=== PATIENT | female | born 1960 | race Caucasian/White ===

== ENCOUNTER 2019-05-26 10:00 | Outpatient (RCR) | payer MEDICAID, SELFPAY | END 2019-05-26 13:00 | disposition home or self-care (01) | LOC: PT.CARL 10:00 | PROVIDERS: Visit Provider Nurse Practitioner Family | DX: M54.5 Low back pain (principal) | CPT/HCPCS: 97012; 97014; 97110; 97140; 97163; 97164; G0283 ==

== ENCOUNTER 2019-06-22 11:00 | Outpatient (RCR) | payer MEDICAID, SELFPAY | END 2019-06-29 13:44 | disposition home or self-care (01) | LOC: OT 11:00 | PROVIDERS: Visit Provider Orthopaedic Surgery Adult Reconstructive Orthopaedic Surgery | DX: M65.4 Radial styloid tenosynovitis [de Quervain] (principal) | CPT/HCPCS: 97110; 97165 ==

== ENCOUNTER → 2023-02-20 09:47 | Outpatient (POV) | payer MEDICAID, SELFPAY ==
--- NOTE | 2023-02-20 10:05 | EXP.PAIN.OV ---
HPI Data of Consult Patient: new to practice Consult date: 02/20/23 Requesting Physician: Carmen Sandra APRN Primary Care Provider: John Patino MD Consult Narrative Reason for consult: Neck pain, low back pain History of present illness: Ms. Becerra is a 62 year old female who presents today as a new patient. She is a referral from [facility]. Today she rates her pain a 8 out of 10. She states her pain is in her neck and low back with radiating symptoms into her lower extremities. She does describe this pain as an aching, throbbing sensation that is worse with increased activity. Patient does state this has been going on for years and progressively worsened over time. She does state that her right leg symptoms are worse than the left side. Patient has tried [id number] medications such as Tylenol and ibuprofen along with heat and ice. She does state that heat does seem to do better however it still is temporary. Patient cannot tolerate activities of daily living such as cooking or cleaning and cannot also tolerate prolonged walking or standing due to her pain. She does state that certain motions are aggravating for her pain symptoms such as bending or twisting. She does describe some numbness and tingling into her left lateral foot. Patient states that she has occasionally had of where her legs will give out. Patient denies any history of incontinence. Patient has had physical therapy multiple times with her last sessions a few months ago however this made her pain significantly worse. She does use Tylenol and Voltaren gel on a daily basis however she states she only gets minimal improvement. 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 Patient is not on any scheduled medications. Patient does have a cardiac history including coronary artery disease. Patient is a diabetic and currently managed with metformin. Her Joaquim is [id number]. Its been reviewed and appropriate. CC: Carmen Sandra APRN [facility] Disclaimer: The information contained in this section may have been updated after the patient was seen, as this information can be updated by other users. Medical History (Updated 02/20/23 @ 10:27 by Carmen Sandra APRN) DDD (degenerative disc disease) Diabetes GERD (gastroesophageal reflux disease) HLD (hyperlipidemia) HTN (hypertension) Seasonal allergies Social History Smoking Status: Never smoker alcohol intake: never current occupational status: other Travel in the last 8 weeks: None Review of Systems Review of Systems Review of systems:: pertinent systems reviewed and negative unless documented below Review of systems (narrative): Review of Systems: General: No recent weight changes, no fever, no sleep disturbances Respiratory: No cough, no shortness of air, no recurring pulmonary infections Cardiovascular/peripheral vascular: No chest pain, no palpitations, no edema, no shortness of breath Gastrointestinal: No new onset incontinence, normal bowel movements reported Genitourinary: No new onset incontinence Musculoskeletal: Neck pain, low back pain, bilateral lower extremity pain Psychiatric: [Normal mood/affect] Neurological: [Denies weakness in extremities], [denies balance issues] Meds Home Medications and Allergies Home Medications Medication Instructions Recorded Confirmed Type albuterol sulfate 90 mcg/actuation 2 puff inhalation BIDP PRN sob 02/20/23 02/20/23 History aerosol inhaler (Ventolin HFA) aspirin 81 mg tablet,delayed 81 mg PO DAILY heart health 02/20/23 02/20/23 History release atorvastatin 20 mg tablet 20 mg PO HS Cholesterol 02/20/23 02/20/23 History cholecalciferol (vitamin D3) 50 2,000 unit PO DAILY Supplement 02/20/23 02/20/23 History mcg (2,000 unit) tablet colestipol 1 gram tablet 1 g PO DAILY . 02/20/23
[2023-02-20 10:06] VITALS: BP 128/76; PULSE 60; RESP 20; O2SAT 97; BMI 33.2
== END ==
PROVIDERS: PCP Emergency Medicine; Visit Provider Nurse Practitioner Family
DX: M51.16 Intervertebral disc disorders with radiculopathy, lumbar region (principal); M46.1 Sacroiliitis, not elsewhere classified
CPT/HCPCS: 99202; G0463

== ENCOUNTER 2023-03-03 08:00 | Day surgery (SDC) | payer MEDICAID, SELFPAY ==
[2023-03-03 08:25] VITALS: BP 154/91; PULSE 75; RESP 18; TEMP 36.3; O2SAT 100; BMI 33.2
[2023-03-03 09:07] VITALS: BP 171/78; PULSE 72; RESP 18; O2SAT 98
[2023-03-03 09:08] VITALS: BP 171/78; PULSE 72; RESP 18; O2SAT 98
[2023-03-03 09:12] VITALS: BP 152/75; PULSE 74; RESP 18; O2SAT 100
--- NOTE | 2023-03-03 09:20 | EXP.PAIN.PRO ---
Procedure Date: 03/03/23 Time: 09:15 Anesthesiologist:: Miguel Neal CRNA Complications:: None Pre-procedure Diagnosis:: Degenerative disc lumbar spine multilevels. Lumbar radiculopathy. Post-procedure Diagnosis:: Same. Indications for Procedure:: Pleasant 62-year-old female that comes our clinic today for a lumbar epidural steroid injection at the L4-5 level. Patient complains of low back pain as well as bilateral hip and leg radicular symptoms. She rates her pain 7/10. Procedure Details:: Procedure: Lumbar epidural steroid injection under fluoroscopy Informed consent was obtained and the risks and benefits of the procedure were explained to the patient. The patient was taken to the procedure room and noninvasive monitors placed, including noninvasive blood pressure cuff and pulse oximeter. The back was viewed using C-arm Fluoroscopy and prepped using Chloraprep as a cleansing solution and the L4-L5 interspace was palpated. Skin and subcutaneous tissues were anesthetized using lidocaine 1.5% and a 25-gauge needle. After this, an 18-gauge Touhy epidural needle was placed into the L4-L5 interspace and advanced using fluoroscopic guidance and loss of resistance to air until the epidural space was encountered. After confirmation of needle placement in the epidural space, with dye, a solution containing normal saline, 3 mL and Depo-Medrol 80 mg were incrementally injected into the lumbar epidural space. The patient tolerated the procedure well with no complications. The patient was observed in the Pain Clinic and then discharged home neurologically intact. Plan and Disposition:: Patient was discharged without incident.
== END 2023-03-03 09:12 | disposition home or self-care (01) ==
PROVIDERS: PCP Emergency Medicine; Visit Provider Nurse Anesthetist, Certified Registered
DX: M51.16 Intervertebral disc disorders with radiculopathy, lumbar region (principal)
CPT/HCPCS: 62323; J1040

== ENCOUNTER → 2023-03-25 09:05 | Outpatient (POV) | payer MEDICAID, SELFPAY ==
[2023-03-25 09:20] VITALS: BP 154/86; PULSE 80; RESP 18; O2SAT 97; BMI 33.2
--- NOTE | 2023-03-25 09:45 | EXP.PAIN.SOA ---
[facility] Pain Management SOAP Note Subjective:: Patient is a pleasant 62-year-old female who presents today for follow-up of lumbar epidural steroid injection at L4-L5 on 03/03/2023. We are currently treating the patient for degenerative disc disease of lumbar spine with lumbar radiculopathy symptoms, low back pain, neck pain. Today she states that she has had at least 50% improvement following this injection. She rates her pain a 5 out of 10 and denies any new trauma or injury. She states following this injection she was able to increase her activity with decreased pain symptoms. She does state that part of her pain today is related to a flareup of her gastroparesis. She also states that she keeps her grandchild daily and often picks her up and carries her and she is approximately 30 pounds. She states that by the end of the day she will be more sore at night. At our last visit she was prescribed tizanidine 4 mg at bedtime and she states this does help giving her additionally 2 hours of sleep with some improvement. Patient was also prescribed compounding cream that she states she is almost out and requesting a refill. Her Joaquim is [phone]. Its been reviewed and appropriate. Review of Systems: General: No recent weight changes, no fever, no sleep disturbances Respiratory: No cough, no shortness of air, no recurring pulmonary infections Cardiovascular/peripheral vascular: No chest pain, no palpitations, no edema, no shortness of breath Gastrointestinal: No new onset incontinence, normal bowel movements reported Genitourinary: No new onset incontinence Musculoskeletal: Low back pain Psychiatric: [Normal mood/affect] Neurological: [Denies weakness in extremities], [denies balance issues] Objective:: Physical Exam: General: Alert and oriented x3, no acute distress, pleasant and cooperative Lungs: Respirations even and unlabored, symmetrical chest expansion Eyes: PERRL Musculoskeletal: Flexion and extension of lumbar [spine] somewhat guarded secondary to pain, [antalgic gait noted] Neurological: Speech clear, no gross sensory deficit Assessment:: Degenerative disc disease of lumbar spine with lumbar radiculopathy symptoms, low back pain, neck pain Plan:: Patient has had at least 50% improvement following her lumbar epidural steroid injection and does not require any additional injective therapy at this time. We will refill her compounding cream and send in a new prescription of methocarbamol 750 mg twice daily and provide a 1 month supply of this medication. I have counseled the patient to discontinue the tizanidine while taking the methocarbamol. Patient will return to clinic in 1 month for reevaluation of symptoms, medication refill if indicated and plan of care. Patient has been instructed to contact the clinic with any concerns before the next appointment. Dr. Killian has reviewed this note and agrees with this plan of care. This note was dictated using voice recognition software and make contain errors or omissions. [facility] Disclaimer: The information contained in this section may have been updated after the patient was seen, as this information can be updated by other users. Medical History DDD (degenerative disc disease) Diabetes GERD (gastroesophageal reflux disease) HLD (hyperlipidemia) HTN (hypertension) Seasonal allergies Family History (Updated 03/03/23 @ 08:25 by Enriqueta Carreon RN) Other No significant family history Social History Smoking Status: Never smoker alcohol intake: never current occupational status: other Travel in the last 8 weeks: None
== END | disposition home or self-care (01) ==
PROVIDERS: PCP Emergency Medicine; Visit Provider Nurse Practitioner Family
DX: M51.16 Intervertebral disc disorders with radiculopathy, lumbar region (principal)
CPT/HCPCS: 99212; G0463

== ENCOUNTER → 2023-04-23 09:43 | Outpatient (POV) | payer MEDICAID, SELFPAY ==
--- NOTE | 2023-04-23 10:06 | EXP.PAIN.SOA ---
[facility] Pain Management SOAP Note Subjective:: Patient is a pleasant 62-year-old female who presents today for follow-up. We are currently treating the patient for degenerative disc disease of lumbar spine with lumbar radiculopathy symptoms, low back pain, neck pain. Today she rates her pain a 7 out of 10. Patient states she is experiencing more pain in her low back with radiating symptoms into her lower extremities. Patient denies any new injury or trauma. She did previously have a lumbar epidural of L4-L5 at the middle of February that did provide 50% improvement lasting up until this point. Patient is interested in repeating this injection. She does state her pain is an aching, throbbing sensation that is worse with increased activity. It does interfere with her ability perform activities of daily living such as cooking and cleaning. At her last visit we did also try a new muscle relaxer of methocarbamol 750 mg twice a day however she stated that she tried it on 2 different occasions and it caused her to be nauseated and some vomiting issues. Patient states she discontinued this medication. Previously she was on tizanidine at bedtime however she was not getting significant relief with this medication either. Patient is prescribed compounding cream. Her Joaquim is [phone]. Its been reviewed and appropriate. Review of Systems: General: No recent weight changes, no fever, no sleep disturbances Respiratory: No cough, no shortness of air, no recurring pulmonary infections Cardiovascular/peripheral vascular: No chest pain, no palpitations, no edema, no shortness of breath Gastrointestinal: No new onset incontinence, normal bowel movements reported Genitourinary: No new onset incontinence Musculoskeletal: Low back pain, bilateral leg pain Psychiatric: [Normal mood/affect] Neurological: [Denies weakness in extremities], [denies balance issues] Objective:: Physical Exam: General: Alert and oriented x3, no acute distress, pleasant and cooperative Lungs: Respirations even and unlabored, symmetrical chest expansion Eyes: PERRL Musculoskeletal: Flexion and extension of lumbar [spine] somewhat guarded secondary to pain, [antalgic gait noted] Neurological: Speech clear, no gross sensory deficit Assessment:: Degenerative disc disease of lumbar spine with lumbar radiculopathy symptoms, low back pain, neck pain Plan:: Patient is experiencing significant pain in her low back with radiating symptoms into her lower extremities. I have discussed with the patient that she may benefit from repeat lumbar epidural steroid injection. Risk and benefits were discussed with the patient and she would like to proceed forward with this plan of care. Patient is not on any blood thinners. Patient did previously have at least 50% improvement with her last epidural injection lasting approximately a month and a half. We will also order the patient baclofen 10 mg at bedtime and provide a 2-week supply of this medication. Patient will be scheduled for an LESI L4-L5. Patient has been instructed to contact the clinic with any concerns before the next appointment. Dr. Killian has reviewed this note and agrees with this plan of care. This note was dictated using voice recognition software and make contain errors or omissions. [facility] Disclaimer: The information contained in this section may have been updated after the patient was seen, as this information can be updated by other users. Medical History DDD (degenerative disc disease) Diabetes GERD (gastroesophageal reflux disease) HLD (hyperlipidemia) HTN (hypertension) Seasonal allergies Family History (Updated 03/03/23 @ 08:25 by Enriqueta Carreon RN) Other No significant family history Social History Smoking Status: Never smoker alcohol intake: never current occupational status: other Travel in the
[2023-04-23 11:05] VITALS: BP 152/79; PULSE 69; RESP 20; O2SAT 98; BMI 33.2
== END | disposition home or self-care (01) ==
PROVIDERS: PCP Emergency Medicine; Visit Provider Nurse Practitioner Family
DX: M51.16 Intervertebral disc disorders with radiculopathy, lumbar region (principal); M54.2 Cervicalgia
CPT/HCPCS: 99212; G0463

== ENCOUNTER 2023-05-05 12:08 | Day surgery (SDC) | payer MEDICAID, SELFPAY ==
[2023-05-05 12:48] VITALS: BP 141/85; PULSE 82; RESP 18; TEMP 36.1; O2SAT 98; BMI 33.6
[2023-05-05 12:53] VITALS: BP 142/66; PULSE 76; RESP 18; O2SAT 97
--- NOTE | 2023-05-05 12:57 | P.PCN_ITS ---
Procedure Date: 05/05/23 Time: 12:50 Anesthesiologist:: Miguel Neal CRNA Complications:: None Pre-procedure Diagnosis:: Degenerative disc disease lumbar spine multilevels. Lumbar radiculopathy Post-procedure Diagnosis:: Same. Indications for Procedure:: Patient is a very pleasant 62-year-old female that comes our clinic today for lumbar epidural steroid injection at the L4-5 level. Patient describes low back pain as constant, dull, aching. Patient also complains of bilateral hip and leg radicular symptoms at times. Patient rates her pain 7/10. Procedure Details:: Procedure: Lumbar epidural steroid injection under fluoroscopy Informed consent was obtained and the risks and benefits of the procedure were explained to the patient. The patient was taken to the procedure room and noninvasive monitors placed, including noninvasive blood pressure cuff and pulse oximeter. The back was viewed using C-arm Fluoroscopy and prepped using Chloraprep as a cleansing solution and the L4-L5 interspace was palpated. Skin and subcutaneous tissues were anesthetized using lidocaine 1.5% and a 25-gauge needle. After this, an 18-gauge Touhy epidural needle was placed into the L4-L5 interspace and advanced using fluoroscopic guidance and loss of resistance to air until the epidural space was encountered. After confirmation of needle placement in the epidural space, with dye, a solution containing normal saline, 3 mL and Depo-Medrol 80 mg were incrementally injected into the lumbar epidural space. The patient tolerated the procedure well with no complications. The patient was observed in the Pain Clinic and then discharged home neuro logically intact. Plan and Disposition:: Patient was discharged without incident.
[2023-05-05 13:06] VITALS: BP 108/67; PULSE 75; RESP 18; O2SAT 98
== END 2023-05-05 13:06 | disposition home or self-care (01) ==
PROVIDERS: PCP Emergency Medicine; Visit Provider Nurse Anesthetist, Certified Registered
DX: M51.16 Intervertebral disc disorders with radiculopathy, lumbar region (principal)
CPT/HCPCS: 62323; J1040

== ENCOUNTER → 2023-05-18 14:02 | Outpatient (POV) | payer MEDICAID, SELFPAY ==
[2023-05-18 15:13] VITALS: BP 140/80; PULSE 75; RESP 18; O2SAT 97; BMI 32.8
--- NOTE | 2023-05-18 15:27 | EXP.PAIN.SOA ---
[facility] Pain Management SOAP Note Subjective:: Patient is a pleasant 62-year-old female who presents today for follow-up of lumbar epidural steroid injection of L4-L5 on 05/05/2023. We are currently treating the patient for degenerative disc disease of lumbar spine with lumbar radiculopathy symptoms, low back pain, neck pain. Today she rates her pain a 5 out of 10. Patient denies any new trauma or injury. Patient denies any change location or type of pain she experiences. She does state that she has had at least 80% improvement following this injection and feels like it is still providing good relief along the left side of her low back. She does state today her pain is more related to her right hip. Patient does describe this as an aching, throbbing sensation that is worse with increased activity. Patient does state that standing or prolonged positioning seems to worsen and that she frequently has to shift her weight or move around to get relief. Patient does state the pain interferes with her ability to perform activities of daily living. Patient is currently managed with baclofen 10 mg at bedtime that she was given a 2-week supply of this medication. She does state that it did help and is requesting an increase if possible. Patient was previously tried on methocarbamol however it caused GI upset and in the past has been on tizanidine however it made no additional relief. Patient is managed with compounding cream. Patient denies any heart or kidney issues. Her Joaquim is [phone]. Its been reviewed and appropriate. Review of Systems: General: No recent weight changes, no fever, no sleep disturbances Respiratory: No cough, no shortness of air, no recurring pulmonary infections Cardiovascular/peripheral vascular: No chest pain, no palpitations, no edema, no shortness of breath Gastrointestinal: No new onset incontinence, normal bowel movements reported Genitourinary: No new onset incontinence Musculoskeletal: Right-sided low back pain, right hip pain Psychiatric: [Normal mood/affect] Neurological: [Denies weakness in extremities], [denies balance issues] Objective:: Physical Exam: General: Alert and oriented x3, no acute distress, pleasant and cooperative Lungs: Respirations even and unlabored, symmetrical chest expansion Eyes: PERRL Musculoskeletal: Flexion and extension of lumbar [spine] somewhat guarded secondary to pain, [antalgic gait noted] extreme point tenderness along right SI with positive right Clovis's, Gretel's, Gaenslen's, compression and distraction exam Neurological: Speech clear, no gross sensory deficit Assessment:: Degenerative disc disease of lumbar spine with lumbar radiculopathy symptoms, low back pain, neck pain, sacroiliitis Plan:: Patient is experiencing significant pain along her low back and right hip. Patient had limited range of motion of her lumbar spine along with extreme point tenderness along her right SI with a positive right Clovis's, Gretel's, Gaenslen's, compression and distraction exam. I have discussed with the patient that she may benefit from a diagnostic SI injection. Risk and benefits were discussed with patient and she would like to proceed forward with this plan of care. I will also send in a prescription of meloxicam 7.5 mg daily and provide a 2-week supply of this medication along with increase her baclofen to 20 mg at bedtime and provide a 1 month supply of this medication. Patient will be scheduled for a diagnostic right SI injection. Patient has been instructed to contact the clinic with any concerns before the next appointment. Dr. Killian has reviewed this note and agrees with this plan of care. This note was dictated using voice recognition software and make contain errors or omissions. [facility] Disclaimer: The information contained in this section may have been updated after the patient was seen, as this information can be updated by other users. Medical History (Reviewed 05/05/23 @ 12:56 by Enriqueta
== END | disposition home or self-care (01) ==
PROVIDERS: Visit Provider Nurse Practitioner Family
DX: M51.16 Intervertebral disc disorders with radiculopathy, lumbar region (principal); M54.50 Low back pain, unspecified; M54.2 Cervicalgia; M46.1 Sacroiliitis, not elsewhere classified
CPT/HCPCS: 99212; G0463

== ENCOUNTER 2023-06-02 07:40 | Day surgery (SDC) | payer MEDICAID, SELFPAY ==
[2023-06-02 08:21] VITALS: BP 135/77; PULSE 75; RESP 18; TEMP 36.6; O2SAT 99; BMI 32.8
[2023-06-02 08:34] VITALS: BP 147/80; PULSE 77; RESP 18; O2SAT 99
--- NOTE | 2023-06-02 08:34 | EXP.PAIN.PRO ---
Procedure Date: 06/02/23 Time: 08:20 Anesthesiologist:: Miguel Neal CRNA Complications:: None Pre-procedure Diagnosis:: Right sacroiliitis Post-procedure Diagnosis:: Right sacroiliitis. Indications for Procedure:: Very pleasant 62-year-old female comes our clinic today for right sacroiliac joint injection. She has had this in the past on the left side with significant improvement terms of her overall left posterior hip pain. She rates her pain 7/10. Procedure Details:: Procedure: Right sacroliliac joint injection under fluoroscopy Informed consent was obtained and the risk and benefits of the procedure were explained to the patient.~ The patient was taken to the procedure room and noninvasive monitors were placed including noninvasive blood pressure cuff and pulse oximeter.~ The patient was placed prone on the procedure table.~ The~ right hip was cleansed using Betadine as a cleansing solution.~ C-arm fluorosocpy was used to view the right SI joint.~ The skin and subcutaneous tissues were anesthetized using Lidocaine 1.5% and a 25-gauge needle.~ After this, a 22-gauge spinal needle was inserted under fluoroscopic guidance into the inferior aspect of the right SI joint.~ Omnipaque dye was injected and a good spread was seen throughout the joint.~ After this, approximately 5 mL of bupivacaine 0.25% and Depo-Medrol 40 mg was incrementally injected into the sacroiliac joint.~ The patient tolerated the procedure well with no complications.~ The patient was observed in the Pain Clinic, then discharged home neurologically intact.~ Plan and Disposition:: Patient was discharged without incident.
== END 2023-06-02 08:34 | disposition home or self-care (01) ==
PROVIDERS: PCP Emergency Medicine; Visit Provider Nurse Anesthetist, Certified Registered
DX: M46.1 Sacroiliitis, not elsewhere classified (principal)
CPT/HCPCS: 27096; G0260; J1040

== ENCOUNTER → 2023-06-15 09:04 | Outpatient (POV) | payer MEDICAID, SELFPAY ==
[2023-06-15 09:27] VITALS: BP 165/90; PULSE 72; RESP 18; O2SAT 98; BMI 33.0
--- NOTE | 2023-06-15 10:02 | EXP.PAIN.SOA ---
[facility] Pain Management SOAP Note Subjective:: Patient is a pleasant 62-year-old female who presents today for follow-up of right SI injection on 06/02/2023. We are currently treating the patient for degenerative disc disease of lumbar spine with lumbar radiculopathy symptoms, low back pain, neck pain, sacroiliitis. Today she rates her pain a 8 out of 10. Patient denies any new trauma or injury. She does state today that she is experiencing more pain along her low back that radiates into both her hips. Patient does describe this as an aching, throbbing sensation with numbness and tingling. Patient does state that her last injection seem more like it did not provide significant relief. She feels like it may have just been a fluke. Patient has had previous SI injections that provided 80% relief for several months. Patient does state her pain interferes with her ability perform activities of daily living such as cooking and cleaning. She is currently managed with baclofen 20 mg at bedtime and meloxicam 7.5 mg daily. Patient denies any side effects from this medication. She does state that the compounding cream she continues to use and it does provide additional improvement. Her Joaquim is [id number]. Its been reviewed and appropriate. Review of Systems: General: No recent weight changes, no fever, no sleep disturbances Respiratory: No cough, no shortness of air, no recurring pulmonary infections Cardiovascular/peripheral vascular: No chest pain, no palpitations, no edema, no shortness of breath Gastrointestinal: No new onset incontinence, normal bowel movements reported Genitourinary: No new onset incontinence Musculoskeletal: Low back pain, bilateral hip pain Psychiatric: [Normal mood/affect] Neurological: [Denies weakness in extremities], [denies balance issues] Objective:: Physical Exam: General: Alert and oriented x3, no acute distress, pleasant and cooperative Lungs: Respirations even and unlabored, symmetrical chest expansion Eyes: PERRL Musculoskeletal: Flexion and extension of lumbar [spine] somewhat guarded secondary to pain, [antalgic gait noted] extreme point tenderness along right SI with positive left SI point tenderness, bilateral positive Clovis's, Gretel's, Gaenslen's, compression and distraction exam, point tenderness along bilateral greater trochanteric bursa's Neurological: Speech clear, no gross sensory deficit Assessment:: Degenerative disc disease with lumbar radiculopathy symptoms, low back pain, neck pain, sacroiliitis, greater trochanteric bursitis Plan:: Patient continues to experience significant pain in her low back and bilateral hips. Patient did have extreme point tenderness along her right SI and point tenderness at her left SI with positive bilateral Clovis's, Gretel's, Gaenslen's, compression and distraction exam. She also had point tenderness along her bilateral greater trochanteric bursa's. I have discussed with the patient that she may benefit from bilateral SI injections. Risk and benefits were explained to the patient and she would like to proceed forward with this plan of care. Patient has previously had SI injections that provided 80% relief lasting several months. I have also discussed with the patient in future she may also benefit from bilateral bursa injections. We will discuss this at future visits. I will send in refills on her baclofen 20 mg at bedtime and meloxicam 7.5 mg daily and provide a 1 month supply of this medication. Patient will be scheduled for bilateral SI injections. Patient has been instructed to contact the clinic with any concerns before the next appointment. Dr. Killian has reviewed this note and agrees with this plan of care. This note was dictated using voice recognition software and make contain errors or omissions. [facility] Disclaimer: The information contained in this section may have been updated after the patient was seen, as this information can be updated by other users. Medical Hist
== END | disposition home or self-care (01) ==
PROVIDERS: Visit Provider Nurse Practitioner Family
DX: M51.16 Intervertebral disc disorders with radiculopathy, lumbar region (principal); M54.2 Cervicalgia; M46.1 Sacroiliitis, not elsewhere classified; M70.60 Trochanteric bursitis, unspecified hip
CPT/HCPCS: 99212; G0463

== ENCOUNTER 2023-06-23 08:42 | Day surgery (SDC) | payer MEDICAID, SELFPAY ==
[2023-06-23 08:58] VITALS: BP 129/88; BP 141/78; PULSE 71; PULSE 74; PULSE 81; RESP 18; TEMP 36.3; O2SAT 95; O2SAT 97; BMI 33.0
[2023-06-23 09:10] VITALS: BP 136/80; PULSE 71; RESP 20
--- NOTE | 2023-06-23 09:42 | P.PCN_ITS ---
Procedure Date: 06/23/23 Time: 09:15 Anesthesiologist:: Miguel Neal CRNA Complications:: None Pre-procedure Diagnosis:: Bilateral sacroiliitis Post-procedure Diagnosis:: Same. Indications for Procedure:: Patient is a very pleasant 62-year-old female comes our clinic today for bilateral sacroiliac joint injections. Upon examination she has extreme point tenderness over the bilateral sacroiliac joints. She complains of difficulty transitioning from sitting to standing. Difficulty ambulating secondary to increased pain in the posterior hip area bilaterally. She rates her pain 7/10. Procedure Details:: Procedure: Bilateral sacroiliac joint injections under fluoroscopy Informed consent was obtained and the risks and benefits of the procedure were explained to the patient.~ The patient was taken to the procedure room and noninvasive monitors were placed including a noninvasive blood pressure cuff and pulse oximeter.~ The patient was placed prone on the procedure table. Both hips were cleansed using Betadine as a cleansing solution. C-arm fluoroscopy was used to view the right sacroiliac joint.~ The skin and subcutaneous tissues were anesthetized using lidocaine 1.5% and a 25-gauge needle.~ After this, a 22-gauge spinal needle was inserted under fluoroscopic guidance into the inferior aspect of the right sacroiliac joint.~ Omnipaque dye was injected and good spread was seen throughout the joint.~ After this, approximately 5 mL of bupivacaine, 0.25% and Depo-Medrol, 40 mg was incrementally injected into the right sacroiliac joint. We then moved to the left sacroiliac joint.~ The skin and subcutaneous tissues were anesthetized using lidocaine 1.5% and a 25-gauge needle.~ After this, a 22- gauge spinal needle was inserted under fluoroscopic guidance into the inferior aspect of the left sacroiliac joint.~ Omnipaque dye was injected and good spread was seen throughout the joint. After this, approximately 5 mL of bupivacaine, 0.25% and Depo-Medrol, 40 mg was incrementally injected into the left sacroiliac joint.~ The patient tolerated the procedure well with no complications. The patient was observed in the Pain Clinic and then was discharged home neurologically intact. Plan and Disposition:: Patient was discharged without incident.
== END 2023-06-23 09:10 | disposition home or self-care (01) ==
LOC: SC.PAINP 08:43
PROVIDERS: PCP Emergency Medicine; Visit Provider Nurse Anesthetist, Certified Registered
DX: M46.1 Sacroiliitis, not elsewhere classified (principal)
CPT/HCPCS: 27096; G0260; J1040

== ENCOUNTER → 2023-07-08 13:51 | Outpatient (POV) | payer MEDICAID, SELFPAY ==
--- NOTE | 2023-07-08 14:16 | EXP.PAIN.SOA ---
[facility] Pain Management SOAP Note Subjective:: Patient is a pleasant 62-year-old female who presents today for follow-up of bilateral SI injections on 06/23/2023. We are currently treating the patient for degenerative disc disease of lumbar spine with lumbar radiculopathy symptoms, low back pain, neck pain, sacroiliitis. Today she rates her pain a 10 out of 10. Patient states that she did have significant improvement following her SI injections and that she is no longer having pain at that location. She does state that she is experiencing severe leg pain and describes it as a sharp stabbing sensation that is worse with increased activity or does seem to be at night. Patient was prescribed ropinirole however she states she was having worsening GI symptoms and did have a couple of nosebleeds. Patient does state the pain in her legs is unbearable and does limit her ability perform activities of daily living. Patient is currently prescribed baclofen 20 mg at bedtime and meloxicam 7.5 milligrams daily. Patient denies any side effects from these medications. She does state that she only needs the baclofen refilled. She does also use a compounding cream. Her Joaquim is [id number]. Its been reviewed and appropriate. Review of Systems: General: No recent weight changes, no fever, no sleep disturbances Respiratory: No cough, no shortness of air, no recurring pulmonary infections Cardiovascular/peripheral vascular: No chest pain, no palpitations, no edema, no shortness of breath Gastrointestinal: No new onset incontinence, normal bowel movements reported Genitourinary: No new onset incontinence Musculoskeletal: No back pain, bilateral leg pain Psychiatric: [Normal mood/affect] Neurological: [Denies weakness in extremities], [denies balance issues] Objective:: Physical Exam: General: Alert and oriented x3, no acute distress, pleasant and cooperative Lungs: Respirations even and unlabored, symmetrical chest expansion Eyes: PERRL Musculoskeletal: Flexion and extension of lumbar [spine] somewhat guarded secondary to pain, [antalgic gait noted] Neurological: Speech clear, no gross sensory deficit Assessment:: Degenerative disc disease of lumbar spine with lumbar radiculopathy symptoms, sacroiliitis, neck pain, low back pain Plan:: Patient is experiencing worsening pain in her low back with radiating symptoms into her lower extremities. Patient did have limited range of motion of her lumbar spine during today's visit. I have discussed with the patient that she may benefit from lumbar epidural steroid injection. Risk and benefits were explained to the patient and she would like to proceed forward with this plan of care. Patient is not on any blood thinners. I will send in a refill of her baclofen 20 mg at bedtime and provide a 1 month supply of this medication. Patient will be scheduled for an LESI L4-L5. Patient has been instructed to contact the clinic with any concerns before the next appointment. Dr. Killian has reviewed this note and agrees with this plan of care. This note was dictated using voice recognition software and make contain errors or omissions. [facility] Disclaimer: The information contained in this section may have been updated after the patient was seen, as this information can be updated by other users. Medical History DDD (degenerative disc disease) Diabetes GERD (gastroesophageal reflux disease) HLD (hyperlipidemia) HTN (hypertension) Seasonal allergies Family History Other No significant family history Social History Smoking Status: Never smoker alcohol intake: never current occupational status: retired Travel in the last 8 weeks: None
[2023-07-08 14:27] VITALS: BP 143/85; PULSE 74; RESP 18; O2SAT 97; BMI 32.8
== END | disposition home or self-care (01) ==
PROVIDERS: PCP Emergency Medicine; Visit Provider Nurse Practitioner Family
DX: M51.16 Intervertebral disc disorders with radiculopathy, lumbar region (principal); M54.2 Cervicalgia; M46.1 Sacroiliitis, not elsewhere classified
CPT/HCPCS: 99212; G0463

== ENCOUNTER → 2023-08-06 08:57 | Outpatient (POV) | payer MEDICAID, SELFPAY ==
--- NOTE | 2023-08-06 09:22 | EXP.PAIN.SOA ---
[facility] Pain Management SOAP Note Subjective:: Patient is a pleasant 62-year-old female who presents today for injection denial. We are currently treating the patient for degenerative disc disease of lumbar spine with lumbar radiculopathy symptoms, low back pain, neck pain, sacroiliitis. Today she rates her pain a 7 out of 10. Patient denies any new trauma or injury. She does state that her back is bothering her more so today and describes this as an aching sensation that is worse with increased activity. Since our last visit she states that her leg pain continued to be unbearable and did seem worse at night and that she went to her primary care doctor and they recommended stopping any new or medications. She states that she did stop the baclofen at bedtime and meloxicam daily and about 3 days from that time her leg pain completely resolved. Patient does use a compounded cream. She is asking if there is anything else we can do instead of the medications that she stopped to help with pain. Patient does have a history of gastroparesis and states sometimes her body can be sensitive to certain medications. Her Joaquim is [id number]. Its been reviewed and appropriate. Review of Systems: General: No recent weight changes, no fever, no sleep disturbances Respiratory: No cough, no shortness of air, no recurring pulmonary infections Cardiovascular/peripheral vascular: No chest pain, no palpitations, no edema, no shortness of breath Gastrointestinal: No new onset incontinence, normal bowel movements reported Genitourinary: No new onset incontinence Musculoskeletal: Low back pain Psychiatric: [Normal mood/affect] Neurological: [Denies weakness in extremities], [denies balance issues] Objective:: Physical Exam: General: Alert and oriented x3, no acute distress, pleasant and cooperative Lungs: Respirations even and unlabored, symmetrical chest expansion Eyes: PERRL Musculoskeletal: Flexion and extension of lumbar [spine] somewhat guarded secondary to pain, [antalgic gait noted] Neurological: Speech clear, no gross sensory deficit Assessment:: Degenerative disc disease of lumbar spine with lumbar radiculopathy symptoms, low back pain, neck pain, sacroiliitis Plan:: I have counseled the patient that we can try Celebrex and send in a 14-day supply of 100 mg daily. Risk and benefits were discussed with the patient and I have counseled her to discontinue all other NSAIDs while taking this medication and to take it with food to minimize GI upset. Patient will return to clinic in 1 month for reevaluation of symptoms and plan of care. I have counseled the patient to contact our office if she would like additional refills of the Celebrex before her next appointment. Patient has been instructed to contact the clinic with any concerns before the next appointment. Dr. Killian has reviewed this note and agrees with this plan of care. This note was dictated using voice recognition software and make contain errors or omissions. [facility] Disclaimer: The information contained in this section may have been updated after the patient was seen, as this information can be updated by other users. Medical History DDD (degenerative disc disease) Diabetes GERD (gastroesophageal reflux disease) HLD (hyperlipidemia) HTN (hypertension) Seasonal allergies Family History Other No significant family history Social History Smoking Status: Never smoker alcohol intake: never current occupational status: retired Travel in the last 8 weeks: None
[2023-08-06 09:29] VITALS: BP 134/85; PULSE 74; RESP 18; O2SAT 96; BMI 32.8
== END | disposition home or self-care (01) ==
PROVIDERS: PCP Emergency Medicine; Visit Provider Nurse Practitioner Family
DX: M51.16 Intervertebral disc disorders with radiculopathy, lumbar region (principal); M54.2 Cervicalgia; M46.1 Sacroiliitis, not elsewhere classified
CPT/HCPCS: 99212; G0463

== ENCOUNTER → 2023-09-14 09:24 | Outpatient (POV) | payer MEDICAID, SELFPAY ==
--- NOTE | 2023-09-14 10:45 | EXP.PAIN.SOA ---
[facility] Pain Management SOAP Note Subjective:: Patient is a pleasant 63-year-old female who presents today for follow-up. We are currently treating the patient for degenerative disc disease of lumbar spine with lumbar radiculopathy symptoms, neck pain, low back pain, sacroiliitis. Today she states her pain is a 5 out of 10. Patient states from our last visit that the medication Celebrex that she did try however it caused her to feel sick to her stomach and vomit. Patient states she did discontinue this medication. Patient does state with her history of gastroparesis that she did have worsening issues of constipation. She states that these did end up causing anal fissures and that she did go to the doctor and was prescribed a medicated lidocaine cream that is helping with that. She states that due to that she spent a lot of time in bed which caused worsening back pain. Patient states that her GI doctor has prescribed her Linzess and she has started this which is helping. Patient states that she does still experience the back pain that she frequently has to change positions and feels like she has a catching sensation or spasms that will occasionally start. Patient has tried meloxicam and diclofenac in the past but continued to have GI issues. She states she does still have some soreness into her lower calves towards her feet however it is not like what it was prior. Patient was prescribed Percocet for 3 days from her PCP. Her Joaquim has been reviewed and is appropriate. Review of Systems: General: No recent weight changes, no fever, no sleep disturbances Respiratory: No cough, no shortness of air, no recurring pulmonary infections Cardiovascular/peripheral vascular: No chest pain, no palpitations, no edema, no shortness of breath Gastrointestinal: No new onset incontinence, normal bowel movements reported Genitourinary: No new onset incontinence Musculoskeletal: Low back pain Psychiatric: [Normal mood/affect] Neurological: [Denies weakness in extremities], [denies balance issues] Objective:: Physical Exam: General: Alert and oriented x3, no acute distress, pleasant and cooperative Lungs: Respirations even and unlabored, symmetrical chest expansion Eyes: PERRL Musculoskeletal: Flexion and extension of lumbar [spine] somewhat guarded secondary to pain, [antalgic gait noted] Neurological: Speech clear, no gross sensory deficit Assessment:: Degenerative disc disease of lumbar spine with lumbar radiculopathy symptoms, neck pain, low back pain, sacroiliitis Plan:: Patient continues to have low back pain with limited range of motion. I have discussed with the patient that we can always do additional injection therapy. Patient has tried multiple NSAIDs and all of them caused either upset stomach or constipation. I have recommended the patient try Tylenol arthritis twice a day. Patient will return to clinic in 1 month for reevaluation of symptoms and plan of care. Patient has been instructed to contact the clinic with any concerns before the next appointment. Dr. Killian has reviewed this note and agrees with this plan of care. This note was dictated using voice recognition software and make contain errors or omissions. [facility] Disclaimer: The information contained in this section may have been updated after the patient was seen, as this information can be updated by other users. Medical History DDD (degenerative disc disease) Diabetes GERD (gastroesophageal reflux disease) HLD (hyperlipidemia) HTN (hypertension) Seasonal allergies Family History Other No significant family history Social History Smoking Status: Never smoker alcohol intake: never current occupational status: retired Travel in the last 8 weeks: None
[2023-09-14 10:51] VITALS: BP 141/90; PULSE 81; RESP 18; O2SAT 95; BMI 33.0
== END ==
PROVIDERS: PCP Emergency Medicine; Visit Provider Nurse Practitioner Family
DX: M51.16 Intervertebral disc disorders with radiculopathy, lumbar region (principal); M54.2 Cervicalgia; M46.1 Sacroiliitis, not elsewhere classified
CPT/HCPCS: 99212; G0463

== ENCOUNTER → 2023-10-13 14:11 | Outpatient (POV) | payer MEDICAID, SELFPAY ==
[2023-10-13 14:38] VITALS: BP 115/83; PULSE 73; RESP 18; O2SAT 97; BMI 33.0
--- NOTE | 2023-10-13 14:45 | A.OFFVIS_ITS ---
[facility] Pain Management SOAP Note Subjective:: Patient is a very pleasant 63-year-old female comes our clinic today for follow- up visit regarding her low back pain as well as bilateral hip and leg radicular symptoms at times. Patient rates her pain today 6/10. Patient complains of low lumbar back pain off the midline bilaterally. Also, bilateral posterior hip pain. Upon examination she has extreme point tenderness over the bilateral sacroiliac joints. Patient has positive Gaenslen's sign. Positive Clovis's test. Positive bilateral sacroiliac joint compression test. Patient is status post bilateral sacroiliac joint injections on 06/23/2023. She reports significant improvement lasting 30 to 60 days. Patient also has had lumbar epidural steroid injection on 05/05/2023. She reports she did receive relief from the lumbar epidural steroid injection. However, today her symptoms are extreme pain over the bilateral sacroiliac joints. Patient has tried and failed conservative measures. Such as home exercise program. Physical therapy. Patient unable to take any oral NSAIDs and or narcotic medications due to severe nausea vomiting. Patient's Joaquim #[id number] has been reviewed and appropriate. Objective:: Patient is awake alert Bracey x 3. No acute distress. Flexion-extension lumbar spine somewhat guarded secondary to pain. Deep tendon reflexes upper lower extremities normal. Motor strength upper and lower extremities normal. There is no gross sensory deficit. Gait is normal. Assessment:: Degenerative disc lumbar spine multilevels. Lumbar radiculopathy. Lumbar spondylosis. Bilateral sacroiliitis. Plan:: I discussed in detail with the patient regarding bilateral sacroiliac joint repeat injections. She wishes to proceed. Answered her questions. [facility] Disclaimer: The information contained in this section may have been updated after the patient was seen, as this information can be updated by other users. Medical History DDD (degenerative disc disease) Diabetes GERD (gastroesophageal reflux disease) HLD (hyperlipidemia) HTN (hypertension) Seasonal allergies Family History Other No significant family history Social History Smoking Status: Never smoker alcohol intake: never substance use type: denies use current occupational status: retired Travel in the last 8 weeks: None
== END ==
LOC: SC.PAIN 14:12
PROVIDERS: PCP Emergency Medicine; Visit Provider Nurse Anesthetist, Certified Registered
DX: M51.16 Intervertebral disc disorders with radiculopathy, lumbar region (principal); M47.26 Other spondylosis with radiculopathy, lumbar region; M46.1 Sacroiliitis, not elsewhere classified
CPT/HCPCS: 99212; G0463

== ENCOUNTER 2023-10-30 11:01 | Day surgery (SDC) | payer MEDICAID, SELFPAY ==
[2023-10-30 11:42] VITALS: BP 164/90; PULSE 76; RESP 18; O2SAT 98; BMI 34.0
[2023-10-30 11:54] VITALS: BP 148/77; PULSE 78; RESP 18; O2SAT 92
[2023-10-30 11:55] VITALS: BP 162/91; PULSE 71; RESP 18; O2SAT 98
[2023-10-30] MEDS: LIDOCAINE 1% 5ML PF VIAL 5 ML (11:55)
[2023-10-30] MEDS: BUPIVACAINE 0.25% 10ML INJ 25 MG IJ (11:55)
[2023-10-30] MEDS: IOPAMIDOL-200 (41%);10ML VIAL 10 ML IV (11:57)
[2023-10-30 12:01] VITALS: BP 148/77; PULSE 78; RESP 18; O2SAT 92
--- NOTE | 2023-10-30 12:42 | EXP.PAIN.PRO ---
Procedure Date: 10/30/23 Time: 12:43 Anesthesiologist:: Jacoby Killian MD Complications:: None Pre-procedure Diagnosis:: Sacroiliitis Post-procedure Diagnosis:: Same Indications for Procedure:: The patient a pleasant 63-year-old white female who we are treating for bilateral hip pain. She is tender over both SI joints. She has a positive Clovis's test bilaterally. She has positive Maria Luisa test bilaterally. She has positive SI joint compression test bilaterally. She has positive distraction test bilaterally. Will plan on bilateral SI joint injections under fluoroscopy today. Procedure Details:: B/L SI joint injection under fluoroscopy Informed consent was obtained and the risks and benefits of the procedure was explained to the patient. The patient was taken to the procedure room and placed prone on the procedure table. The patient was prepped using ChloraPrep. The skin and subcutaneous tissues overlying the SI joints were anesthetized using lidocaine. I placed a 22-gauge needle first in the left SI joint and second in the right SI joint. Needle placement was confirmed with dye. After this we injected 5 mL bupivacaine 0.25% and Depo-Medrol 40 mg into each SI joint. Patient tolerated the procedure well with no complication. Plan and Disposition:: Will follow-up with her in 2 weeks. Will reevaluate symptoms at that time.
--- NOTE | 2023-10-30 12:45 | P.PCN_ITS ---
Procedure Date: 10/30/23 Time: 12:45 Anesthesiologist:: Jacoby Killian MD Complications:: None Pre-procedure Diagnosis:: Degenerative disc disease of lumbar spine with lumbar radiculopathy symptoms Post-procedure Diagnosis:: Same Indications for Procedure:: This patient is a pleasant 63-year-old white female who we are treating for low back pain with lumbar radiculopathy symptoms. She had her pain pump implanted Thursday in [place]. She had failed all previous conservative treatments. We did not have medication at that time so we filled her with saline. She presents now for her first fill of intrathecal morphine 1 mg/mL. Will start at 150 mcg/day. She is to wean off of her Percocet after starting her pump. Procedure Details:: Informed consent was obtained and the risks and benefits of the procedure was explained to the patient. The patient was taken to the procedure room. The pump was interrogated. The area over the pump was prepped using ChloraPrep. The pump was accessed with a 22-gauge needle. Approximately 20 mL's of the intrathecal solution was withdrawn and discarded. The pump was then refilled with 20 mL's of intrathecal morphine 1 mg per ml. After priming the catheter, the pump was interrogated and the infusion was started at 150 mcg/day with PTM boluses started at 15 mcg up to 4 times a day as needed. The patient tolerated the procedure well with no complication. Plan and Disposition:: We will follow-up with this patient at her next pump refill. This to be on or before February 20, 2024. We did send her in antibiotics Bactrim DS twice a day for 5 days. Her incisions are healing very nicely. Will follow-up with her in 2 weeks here in [place] to remove sutures and colby.
== END 2023-10-30 11:55 | disposition home or self-care (01) ==
LOC: SC.PAINP 11:02
PROVIDERS: PCP Emergency Medicine; Visit Provider Anesthesiology
DX: M51.16 Intervertebral disc disorders with radiculopathy, lumbar region (principal); Z97.8 Presence of other specified devices; Z45.1 Encounter for adjustment and management of infusion pump; M46.1 Sacroiliitis, not elsewhere classified
CPT/HCPCS: 27096; 95991; G0260; J1030; Q9966

== ENCOUNTER → 2023-11-09 13:52 | Outpatient (POV) | payer MEDICAID, SELFPAY ==
--- NOTE | 2023-11-09 14:21 | A.OFFVIS_ITS ---
[facility] Pain Management SOAP Note Subjective:: Patient is a pleasant 63-year-old female who presents today for follow-up of bilateral SI injections on 10/30/2023. We are currently treating the patient for degenerative disc disease of lumbar spine with lumbar radiculopathy symptoms, neck pain, low back pain, sacroiliitis. Today she states her pain is a 6 out of 10. She denies any new trauma or injury from our last visit. Patient states that the injections did help improve her pain symptoms on a day-to-day basis. Patient states that she has been able to increase her activity with overall decreased pain and improved function. Patient states she has not had to use her heating pad since having these injections. She states that it is still providing significant relief at this time. Patient has tried meloxicam and diclofenac in the past but unable to tolerate due to stomach upset. She is prescribed compounded cream. Her Joaquim has been reviewed and is appropriate. Review of Systems: General: No recent weight changes, no fever, no sleep disturbances Respiratory: No cough, no shortness of air, no recurring pulmonary infections Cardiovascular/peripheral vascular: No chest pain, no palpitations, no edema, no shortness of breath Gastrointestinal: No new onset incontinence, normal bowel movements reported Genitourinary: No new onset incontinence Musculoskeletal: Low back pain Psychiatric: [Normal mood/affect] Neurological: [Denies weakness in extremities], [denies balance issues] Objective:: Physical Exam: General: Alert and oriented x3, no acute distress, pleasant and cooperative Lungs: Respirations even and unlabored, symmetrical chest expansion Eyes: PERRL Musculoskeletal: Flexion and extension of lumbar [spine] somewhat guarded secondary to pain, [antalgic gait noted] Neurological: Speech clear, no gross sensory deficit Assessment:: Degenerative disc disease of lumbar spine with lumbar radiculopathy symptoms, neck pain, low back pain, sacroiliitis Plan:: Patient is doing well following her bilateral SI injections and does not require any additional injection therapy at this time. Patient will return to clinic in 1 month for reevaluation of symptoms and plan of care. Patient has been instructed to contact the clinic with any concerns before the next appointment. Dr. Killian has reviewed this note and agrees with this plan of care. This note was dictated using voice recognition software and make contain errors or omissions. PFSH PFSH Disclaimer: The information contained in this section may have been updated after the patient was seen, as this information can be updated by other users. Medical History DDD (degenerative disc disease) Diabetes GERD (gastroesophageal reflux disease) HLD (hyperlipidemia) HTN (hypertension) Seasonal allergies Family History Other No significant family history Social History Smoking Status: Never smoker alcohol intake: never substance use type: denies use current occupational status: retired Travel in the last 8 weeks: None
[2023-11-09 15:37] VITALS: BP 155/88; PULSE 72; RESP 18; O2SAT 98; BMI 33.8
== END ==
LOC: SC.PAIN 13:52
PROVIDERS: PCP Emergency Medicine; Visit Provider Nurse Practitioner Family
DX: M51.16 Intervertebral disc disorders with radiculopathy, lumbar region (principal); M46.1 Sacroiliitis, not elsewhere classified
CPT/HCPCS: 99212; G0463

== ENCOUNTER → 2023-12-10 09:13 | Outpatient (POV) | payer MEDICAID, SELFPAY ==
--- NOTE | 2023-12-10 09:36 | A.OFFVIS_ITS ---
[facility] Pain Management SOAP Note Subjective:: Patient is a pleasant 63-year-old female who presents today for 1 month follow- up. We are currently treating the patient for degenerative disc disease of lumbar spine with lumbar radiculopathy symptoms, neck pain, low back pain, sacroiliitis. Today she rates her pain a 6 out of 10. Patient states that she is experiencing more pain in and around her low back and does state that it is a aching, throbbing sensation. Patient denies any symptoms going into her legs. She does state that she noticed certain movements do seem to aggravate her pain such as bending, twisting or lifting. Patient states the pain is interfering with her ability to perform activities of daily living such as cooking and cleaning. Patient has been tried on prescription strength anti-inflammatories however was unable to tolerate these due to GI issues. She is prescribed compounded cream. Her Joaquim has been reviewed and is appropriate. Review of Systems: General: No recent weight changes, no fever, no sleep disturbances Respiratory: No cough, no shortness of air, no recurring pulmonary infections Cardiovascular/peripheral vascular: No chest pain, no palpitations, no edema, no shortness of breath Gastrointestinal: No new onset incontinence, normal bowel movements reported Genitourinary: No new onset incontinence Musculoskeletal: Low back pain Psychiatric: [Normal mood/affect] Neurological: [Denies weakness in extremities], [denies balance issues] Objective:: Physical Exam: General: Alert and oriented x3, no acute distress, pleasant and cooperative Lungs: Respirations even and unlabored, symmetrical chest expansion Eyes: PERRL Musculoskeletal: Flexion and extension of lumbar [spine] somewhat guarded secondary to pain, [antalgic gait noted] positive Kemps test Neurological: Speech clear, no gross sensory deficit Assessment:: Degenerative disc disease of lumbar spine with lumbar radiculopathy symptoms, neck pain, low back pain, sacroiliitis, lumbar facet arthropathy Plan:: Patient is experiencing worsening pain in her low back with limited range of motion of her lumbar spine and a positive Kemps test. I have discussed with patient that she may benefit from a lumbar medial branch block. Risk and benefits were discussed with patient and she would like to proceed forward with this plan of care. Patient is not on any blood thinners. Patient has tried and failed conservative treatment such as oral medication, heat and ice, topicals, prior physical therapy, at home stretching exercise for longer than 6 weeks. We will schedule the patient for a lumbar medial branch block L4-L5 and L5-S1 under fluoroscopy. Patient has been instructed to contact the clinic with any concerns before the next appointment. Dr. Killian has reviewed this note and agrees with this plan of care. This note was dictated using voice recognition software and make contain errors or omissions. [facility] Disclaimer: The information contained in this section may have been updated after the patient was seen, as this information can be updated by other users. Medical History DDD (degenerative disc disease) Diabetes GERD (gastroesophageal reflux disease) HLD (hyperlipidemia) HTN (hypertension) Seasonal allergies Family History Other No significant family history Social History Smoking Status: Never smoker alcohol intake: never substance use type: denies use current occupational status: retired Travel in the last 8 weeks: None
[2023-12-10 11:36] VITALS: BP 132/81; PULSE 63; RESP 18; O2SAT 98; BMI 33.6
== END ==
LOC: SC.PAIN 09:14
PROVIDERS: PCP Emergency Medicine; Visit Provider Nurse Practitioner Family
DX: M51.16 Intervertebral disc disorders with radiculopathy, lumbar region (principal); M54.2 Cervicalgia; M46.1 Sacroiliitis, not elsewhere classified; M47.22 Other spondylosis with radiculopathy, cervical region
CPT/HCPCS: 99212; G0463

== ENCOUNTER 2024-01-05 08:41 | Day surgery (SDC) | payer MEDICAID, SELFPAY ==
[2024-01-05 09:08] VITALS: BP 143/85; PULSE 76; RESP 18; O2SAT 98; BMI 33.6
[2024-01-05] MEDS: methylPREDNISolone ACETATE 80MG/ML VIAL 80 MG (09:29)
[2024-01-05 09:30] VITALS: BP 156/87; PULSE 71; RESP 18; O2SAT 98
[2024-01-05] MEDS: BUPIVACAINE 0.25% 10ML INJ 25 MG IJ (09:30)
[2024-01-05] MEDS: LIDOCAINE 1% 5ML PF VIAL 5 ML (09:30)
--- NOTE | 2024-01-05 09:30 | P.PCN_ITS ---
Procedure Date: 01/05/24 Time: 09:10 Anesthesiologist:: Miguel Neal CRNA Complications:: None Pre-procedure Diagnosis:: Lumbar facet arthropathy, lumbar spondylosis, lumbar degenerative disc disease with lumbar radiculopathy. Post-procedure Diagnosis:: Same Indications for Procedure:: Patient is a pleasant 63-year-old female who presents to the clinic today for bilateral lumbar medial branch blocks. She complains of low back pain worsened with flexion, extension and left or right rotation. Low back pain is axial in nature. Procedure Details:: Informed consent was obtained and the risk and benefits of the procedure was explained to the patient. Patient was taken to the procedure room where noninvasive monitors were placed, including noninvasive blood pressure cuff as well as pulse oximeter. The area over the lumbar spine was cleansed using chlorhexidine as a cleansing solution. I anesthetized the skin and subcutaneous tissues with 1% Lidocaine. I placed 22-gauge spinal needles into the facet joint/ medial branches of L4-L5, and L5-S1 bilaterally. Needle placement was confirmed with fluoroscopy. After confirmation of needle placement, each site was injected with 1 mL of 1% lidocaine and 0.25 % Marcaine and 10 mg of Depo- Medrol. A total of 80 mg of depo medrol was used for bilateral medial branch blocks of L4-L5, and L5-S1 bilaterally. Patient tolerated the procedure without difficulty. There were no complications. Plan and Disposition:: Patient was discharged from the clinic without incident
[2024-01-05 09:33] VITALS: BP 151/103; PULSE 75; RESP 18; O2SAT 95
[2024-01-05 09:34] VITALS: BP 151/103; PULSE 75; RESP 18; O2SAT 95
== END 2024-01-05 09:30 | disposition home or self-care (01) ==
PROVIDERS: PCP Emergency Medicine; Visit Provider Nurse Anesthetist, Certified Registered
DX: M47.896 Other spondylosis, lumbar region (principal); M51.16 Intervertebral disc disorders with radiculopathy, lumbar region
CPT/HCPCS: 64493; 64494; J1040

== ENCOUNTER 2024-09-19 10:37 | Outpatient (POV) | payer MEDICARE, OTHER, SELFPAY ==
--- NOTE | 2024-09-19 11:08 | A.OFFVIS_ITS ---
[facility] Disclaimer: The information contained in this section may have been updated after the patient was seen, as this information can be updated by other users. Medical History (Updated 09/19/24 @ 11:10 by Carmen Sandra APRN) DDD (degenerative disc disease) Seasonal allergies HTN (hypertension) Diabetes GERD (gastroesophageal reflux disease) HLD (hyperlipidemia) Family History Other No significant family history Social History Smoking Status: Never smoker alcohol intake: never substance use type: denies use current occupational status: retired PM Subjective & Objective Subjective Subjective:: Patient is a pleasant 64-year-old female who presents today for follow-up of lumbar medial branch blocks bilaterally L4-L5 and L5-S1 on January 05, 2024. Today she does rate her pain an 8 out of 10. Patient states that that injection worked wonderful and she had about 90% relief that lasted several months. She does state that the pain started to come back more towards fall and that August was really bad however she was unable to get into our office sooner. Patient denies any new falls or injuries. She states it is still that same pain in her low back and denies any radiating symptoms into her legs. Patient does state the pain is back with increased severity and it is made worse with certain movements such as bending twisting or lifting. Patient does state her activities of daily living are affected. Patient is interested in repeating her prior injections as they did provide such significant improved function. Patient is prescribed compounded cream. She states she has been using Tylenol and ibuprofen along with heat for temporary relief. Her Joaquim has been reviewed and is appropriate. Review of Systems: General: No recent weight changes, no fever, no sleep disturbances Respiratory: No cough, no shortness of air, no recurring pulmonary infections Cardiovascular/peripheral vascular: No chest pain, no palpitations, no edema, no shortness of breath Gastrointestinal: No new onset incontinence, normal bowel movements reported Genitourinary: No new onset incontinence Musculoskeletal: Low back pain Psychiatric: [Normal mood/affect] Neurological: [Denies weakness in extremities], [denies balance issues] Pain at rest (0-10 scale): 8 Objective Objective:: Physical Exam: General: Alert and oriented x3, no acute distress, pleasant and cooperative Lungs: Respirations even and unlabored, symmetrical chest expansion Eyes: PERRL Musculoskeletal: Flexion and extension of lumbar [spine] somewhat guarded secondary to pain, [antalgic gait noted] positive Kemps test Neurological: Speech clear, no gross sensory deficit Has patient had previous pain injection?: Yes Percent improvement in pain since last injection: 90% Conservative treatment options previously tried: Home exercise plan Length of treatment: Longer than 12 weeks Meds Home Medications and Allergies Home Medications ?Medication ?Instructions ?Recorded ?Confirmed ?Type albuterol sulfate 90 mcg/actuation 2 puff inhalation BIDP PRN sob 02/20/23 12/10/23 History aerosol inhaler (Ventolin HFA) aspirin 81 mg tablet,delayed 81 mg PO DAILY heart health 02/20/23 12/10/23 Hi story release atorvastatin 20 mg tablet 20 mg PO HS Cholesterol 02/20/23 12/10/23 History cholecalciferol (vitamin D3) 50 2,000 unit PO DAILY Supplement 02/20/23 12/10/23 History mcg (2,000 unit) tablet colestipol 1 gram tablet 1 g PO DAILY . 02/20/23 12/10/23 History esomeprazole magnesium 40 mg 40 mg PO DAILY GERD 02/20/23 12/10/23 History capsule,delayed release famotidine 40 mg tablet 40 mg PO DAILY GERD 02/20/23 12/10/23 History metformin 500 mg tablet 500 mg PO DAILY Diabetes 02/20/23 12/10/23 History montelukast 10 mg tablet 10 mg PO HS allergies 02/20/23 12/10/23 History omega-3 fatty acids-fish oil 300 1,000 cap PO DAILY Supplement 02/20/23 12/10/23 History mg-1,000 mg capsule propranolol 10 mg tablet 10 mg PO BID Heartburn 02/20/23 12/10/23 History tizanidine 4 mg tablet (Zanaflex) 4 mg PO HS . #30 tabs 03/23/23 12/10/23 Rx methocarbamol 750 mg tablet 750 mg PO BID . 05/05/23 12/10/23 History meloxicam 7.5 mg tablet 7.5 mg PO DAILY . #30 tabs 06/15/23 12/10/23 Rx baclofen 20 mg tablet 20 mg PO HS . #30 tabs 07/08/23 12/10/23 Rx celecoxib 100 mg capsule (Celebrex) 100 mg PO DAILY #14 caps 08/06/23 12/10/23 Rx New Prescriptions to Start Prescriptions: Allergies Allergy/AdvReac Type Severity Reaction Status Date / Time aspirin AdvReac Verified 10/30/23 11:56 denosumab AdvReac Verified 10/30/23 11:56 morphine AdvReac Verified 10/30/23 11:56 promethazine AdvReac Verified 10/30/23 11:56 Assessment and Plan *Assessment and plan (1) Degenerative disc disease, lumbar: Status: Acute Category: Medical Code(s): M51.36 - Other intervertebral disc degeneration, lumbar region (2) Lumbar facet arthropathy: Status: Acute Category: Medical Code(s): M47.816 - Spondylosis without myelopathy or radiculopathy, lumbar region Plan Patient is experiencing worsening pain in her low back with limited range of motion and a positive Kemps test. Patient did have significant relief with her first lumbar medial branch block of 90% with improved function. Patient did get several months from this and just started to experience worsening pain in her low back this fall. Patient previously had her first 1 in December. I did review over with the patient that I do believe she would benefit from a second lumbar medial branch block. Risk and benefits were discussed with patient and she would like to proceed forward with this plan of care. Patient has tried and failed conservative therapy including continued at home stretching exercise for longer than 12 weeks. Patient has continued her ongoing conservative treatment of oral medications heat as well. Patient will be scheduled for her second lumbar medial branch block bilaterally L4-L5 and L5-S1 under fluoroscopy. Patient was counseled if she gets significant relief again lasting several months that we will plan to proceed forward with the lumbar RFA at a later date. Patient agrees with this plan of care. Patient has been instructed to contact the clinic with any concerns before the next appointment. Dr. Killian has reviewed this note and agrees with this plan of care. This note was dictated using voice recognition software and make contain errors or omissions. All injections are used with Lidocaine or Bupivacaine and Depo Medrol.
[2024-09-19 11:21] VITALS: BP 113/73; PULSE 85; RESP 16; O2SAT 98; BMI 34.0
== END 2024-09-19 23:59 | disposition home or self-care (01) ==
LOC: SC.PAIN 10:42
PROVIDERS: PCP Emergency Medicine; Visit Provider Nurse Practitioner Family
DX: M47.816 Spondylosis without myelopathy or radiculopathy, lumbar region (principal); M51.360 Other intervertebral disc degeneration, lumbar region with discogenic back pain only; Z73.89 Other problems related to life management difficulty; Z79.899 Other long term (current) drug therapy
CPT/HCPCS: 99212; G0463

== ENCOUNTER 2024-10-26 10:57 | Outpatient (POV) | payer MEDICARE, OTHER, SELFPAY ==
--- NOTE | 2024-10-26 11:20 | A.OFFVIS_ITS ---
[facility] Disclaimer: The information contained in this section may have been updated after the patient was seen, as this information can be updated by other users. Medical History (Updated 09/19/24 @ 11:10 by aCrmen Sandra APRN) DDD (degenerative disc disease) Seasonal allergies HTN (hypertension) Diabetes GERD (gastroesophageal reflux disease) HLD (hyperlipidemia) Family History Other No significant family history Social History Smoking Status: Never smoker alcohol intake: never substance use type: denies use current occupational status: other Travel in the last 8 weeks: None PM Subjective & Objective Subjective Subjective:: Patient is a pleasant 63-year-old female who presents today for insurance denial. We are currently treating the patient for degenerative disc disease of lumbar spine with lumbar radiculopathy symptoms, neck pain, low back pain, sacroiliitis. Today she rates her pain a 7 out of 10. Patient does state from her last visit she has been hospitalized due to being under the weather which has additionally aggravated her chronic low back pain. She does state that it is a constant aching, throbbing sensation that stays in her low back and does not go into her legs. It is very positional and aggravated with certain movements such as bending, twisting or lifting. Patient states the pain is interfering with her ability to perform activities of daily living such as cooking and cleaning. Patient did previously have her first lumbar medial branch block bilaterally L4-L5 and L5-S1 back in December 2023 that did provide 90% improvement and did last until the fall 2023. Patient did have a such significant improvement with decreased pain that she did not even need to be seen by our office. Patient states that the pain was very manageable and only rated it as a 1 out of 10 from the injection on to around July. Patient did start to have increased pain that was much more severe in August and has continued since. Patient would like to proceed forward with her second lumbar medial branch because this has been the only thing that has given significant long-lasting relief. Patient has continued conservative treatment including or al medications, heat and ice, topicals, previous therapy and continued at home stretching exercise for longer than 12 weeks with no additional changes. Patient is unable to tolerate NSAIDs due to a longstanding history of GI related issues. She is prescribed compounded cream. Her Joaquim has been reviewed and is appropriate. Review of Systems: General: No recent weight changes, no fever, no sleep disturbances Respiratory: No cough, no shortness of air, no recurring pulmonary infections Cardiovascular/peripheral vascular: No chest pain, no palpitations, no edema, no shortness of breath Gastrointestinal: No new onset incontinence, normal bowel movements reported Genitourinary: No new onset incontinence Musculoskeletal: Low back pain Psychiatric: [Normal mood/affect] Neurological: [Denies weakness in extremities], [denies balance issues] Pain at rest (0-10 scale): 7 Objective Objective:: Physical Exam: General: Alert and oriented x3, no acute distress, pleasant and cooperative Lungs: Respirations even and unlabored, symmetrical chest expansion Eyes: PERRL Musculoskeletal: Flexion and extension of lumbar [spine] somewhat guarded secondary to pain, [antalgic gait noted] positive Kemps test Neurological: Speech clear, no gross sensory deficit Has patient had previous pain injection?: No Conservative treatment options previously tried: NSAIDS Length of treatment: Unable to tolerate due to GI issues, Home exercise plan Length of treatment: Longer than 12 weeks and Prescription medications Length of treatment: Longer than 12 weeks Meds Home Medications and Allergies Home Medications ?Medication ?Instructions ?Recorded ?Confirmed ?Type albuterol sulfate 90 mcg/actuation 2 puff inhalation BIDP PRN sob 02/20/23 09/19/24 History aerosol inhaler (Ventolin HFA) aspirin 81 mg tablet,delayed 81 mg PO DAILY heart health 02/20/23 09/19/24 History release atorvastatin 20 mg tablet 20 mg PO HS Cholesterol 02/20/23 09/19/24 History cholecalciferol (vitamin D3) 50 2,000 unit PO DAILY Supplement 02/20/23 09/19/24 History mcg (2,000 unit) tablet colestipol 1 gram tablet 1 g PO DAILY . 02/20/23 09/19/24 History esomeprazole magnesium 40 mg 40 mg PO DAILY GERD 02/20/23 09/19/24 History capsule,delayed release famotidine 40 mg tablet 40 mg PO DAILY GERD 02/20/23 09/19/24 History metformin 500 mg tablet 500 mg PO DAILY Diabetes 02/20/23 09/19/24 History montelukast 10 mg tablet 10 mg PO HS allergies 02/20/23 09/19/24 History omega-3 fatty acids-fish oil 300 1,000 cap PO DAILY Supplement 02/20/23 09/19/24 History mg-1,000 mg capsule propranolol 10 mg tablet 10 mg PO BID Heartburn 02/20/23 09/19/24 History tizanidine 4 mg tablet (Zanaflex) 4 mg PO HS . #30 tabs 03/23/23 09/19/24 Rx methocarbamol 750 mg tablet 750 mg PO BID . 05/05/23 09/19/24 History meloxicam 7.5 mg tablet 7.5 mg PO DAILY . #30 tabs 06/15/23 09/19/24 Rx baclofen 20 mg tablet 20 mg PO HS . #30 tabs 07/08/23 09/19/24 Rx celecoxib 100 mg capsule (Celebrex) 100 mg PO DAILY #14 caps 08/06/23 09/19/24 Rx New Prescriptions to Start Prescriptions: Allergies Allergy/AdvReac Type Severity Reaction Status Date / Time aspirin AdvReac Verified 10/30/23 11:56 denosumab AdvReac Verified 10/30/23 11:56 morphine AdvReac Verified 10/30/23 11:56 promethazine AdvReac Verified 10/30/23 11:56 Assessment and Plan *Assessment and plan (1) Degenerative disc disease, lumbar: Status: Acute Category: Medical Code(s): M51.369 - Other intervertebral disc degeneration, lumbar region without mention of lumbar back pain or lower extremity pain (2) Lumbar facet arthropathy: Status: Acute Category: Medical Code(s): M47.816 - Spondylosis without myelopathy or radiculopathy, lumbar region (3) Low back pain: Status: Acute Category: Medical Code(s): M54.50 - Low back pain, unspecified Plan Patient is experiencing significant pain throughout her low back with limited range of motion and a positive Kemps test. I did review over with the patient risk and benefits of repeat lumbar medial branch block and she would like to proceed forward with this plan of care. Patient has tried multiple oral medications, heat and ice, topicals, therapy, at home stretching exercise for longer than 12 weeks and between injections with no additional relief. Patient did have a highly successful first lumbar medial branch block that was on January 05, 2024 that provided 90% relief and allowed her enjoying activities of daily living with very minimal pain. Patient was only rating her daily pain a 1 out of 10 for 6 months following the lumbar medial branch block. Patient states it was wonderful and that the best she is felt in some time. Patient got at least 6 months going towards 7 months of relief with her first lumbar medial branch block and only had her pain return coming August 2024 which was 7 months from the original procedure date. Patient was not able to get into our office during the month of August due to limited availability and was seen at the first available timeframe which was the beginning of September. Patient has continued to try conservative therapy with no additional changes. She is experiencing daily pain that is constant and severe in nature and limits all of her activities of daily living. Patient was counseled that we will resubmit for the second lumbar medial branch block with the plan to proceed forward with a lumbar RFA at a later date. I will also send in a 2-week supply of muscle relaxer to be used as needed. Patient will be scheduled for her second lumbar medial branch block bilaterally L4-L5 and L5-S1 under fluoroscopy. Patient has been instructed to contact the clinic with any concerns before the next appointment. Dr. Killian has reviewed this note and agrees with this plan of care. This note was dictated using voice recognition software and make contain errors or omissions. All injections are used with Lidocaine, Bupivacaine and Depo Medrol. Occasionally urine drug screen is needed to verify patient's compliance with our office pain contract. This is ordered based off specific treatments related to chronic pain with the potential to abuse certain medications.
[2024-10-26 11:35] VITALS: BP 127/71; PULSE 80; RESP 18; O2SAT 98; BMI 32.8
== END 2024-10-26 23:59 | disposition home or self-care (01) ==
PROVIDERS: PCP Emergency Medicine; Visit Provider Nurse Practitioner Family
DX: M51.369 Other intervertebral disc degeneration, lumbar region without mention of lumbar back pain or lower extremity pain (principal); M47.816 Spondylosis without myelopathy or radiculopathy, lumbar region; M54.50 Low back pain, unspecified; Z73.89 Other problems related to life management difficulty; Z79.899 Other long term (current) drug therapy
CPT/HCPCS: 99212; G0463

== ENCOUNTER 2024-11-08 10:06 | Day surgery (SDC) | payer MEDICARE, OTHER, SELFPAY ==
[2024-11-08 10:50] VITALS: BP 142/79; PULSE 69; RESP 18; O2SAT 98; BMI 33.6
--- NOTE | 2024-11-08 11:12 | EXP.PAIN.PRO ---
Procedure Date: 11/08/24 Time: 11:00 Anesthesiologist:: Miguel Neal CRNA Complications:: None Pre-procedure Diagnosis:: Degenerative disc lumbar spine multilevels. Lumbar radiculopathy. Lumbar spondylosis. Bilateral lumbar facet arthropathy. Post-procedure Diagnosis:: Same Indications for Procedure:: Patient is a pleasant 64-year-old female comes our clinic today for ROUND ONE bilateral lumbar L4-5, L5-S1 medial branch block/facet injections. Patient reports low lumbar back pain bilaterally. She reports difficulty with lumbar flexion, extension, right and left rotation. Difficulty standing. She rates her pain 7/10. Procedure Details:: Informed consent was obtained and the risk and benefits of the procedure was explained to the patient. Patient was taken to the procedure room where noninvasive monitors were placed, including noninvasive blood pressure cuff as well as pulse oximeter. The area over the lumbar spine was cleansed using chlorhexidine as a cleansing solution. I anesthetized the skin and subcutaneous tissues with 1% Lidocaine. I placed 22-gauge spinal needles into the facet joint/ medial branches of [L3-L4, L4-L5, and L5-S1] bilaterally. Needle placement was confirmed with fluoroscopy. After confirmation of needle placement, each site was injected with 1 mL of 1% lidocaine and 0.25 % Marcaine and 10 mg of Depo-Medrol. A total of 80 mg of depo medrol was used for bilateral medial branch blocks of [L3-L4, L4-L5, and L5-S1] bilaterally. Patient tolerated the procedure without difficulty. There were no complications. Plan and Disposition:: Patient was discharged without incident.
[2024-11-08 11:13] VITALS: BP 166/79; PULSE 66; RESP 18; O2SAT 98
[2024-11-08] MEDS: methylPREDNISolone ACETATE 80MG/ML VIAL 80 MG (11:30)
[2024-11-08] MEDS: LIDOCAINE 1% 5ML PF VIAL 5 ML (11:30)
[2024-11-08] MEDS: BUPIVACAINE 0.25% 10ML INJ 25 MG IJ (11:30)
[2024-11-08 11:31] VITALS: BP 144/66; PULSE 68; RESP 18; O2SAT 96
[2024-11-08 11:50] VITALS: BP 144/66; PULSE 68; RESP 18; O2SAT 96
== END 2024-11-08 11:13 | disposition home or self-care (01) ==
PROVIDERS: PCP Emergency Medicine; Visit Provider Nurse Anesthetist, Certified Registered
DX: M47.816 Spondylosis without myelopathy or radiculopathy, lumbar region (principal); M51.369 Other intervertebral disc degeneration, lumbar region without mention of lumbar back pain or lower extremity pain
CPT/HCPCS: 64493; 64494; J1010

== ENCOUNTER 2024-11-23 10:40 | Outpatient (POV) | payer MEDICARE, OTHER, SELFPAY ==
[2024-11-23 11:26] VITALS: BP 120/76; PULSE 72; RESP 14; O2SAT 100; BMI 32.8
--- NOTE | 2024-11-23 12:17 | A.OFFVIS_ITS ---
[facility] Disclaimer: The information contained in this section may have been updated after the patient was seen, as this information can be updated by other users. Medical History (Updated 11/23/24 @ 12:20 by Carmen Sandra APRN) DDD (degenerative disc disease) Seasonal allergies HTN (hypertension) Diabetes GERD (gastroesophageal reflux disease) HLD (hyperlipidemia) Family History Other No significant family history Social History Smoking Status: Never smoker alcohol intake: never substance use type: denies use current occupational status: other Travel in the last 8 weeks: None PM Subjective & Objective Subjective Subjective:: Patient is a pleasant 64-year-old female who presents today for follow-up of her second round of lumbar medial branch blocks bilaterally L4-L5 and L5-S1 on 11/08/2024. Today she rates her pain an 8 out of 10. She denies any new trauma or injury. She does state that she had a lot of pain following these injections. She states she is not sure if it was just because where she waited so long and it had gotten so severe that she had pain the date of the injections and it continued to be worse for several days after. She states that it did ease off this past week but is still having quite a bit pain in her low back and bilateral hips. Patient does state the pain is severe at times and does interfere with her ability perform activities of daily living such as cooking and cleaning. Patient is interested in additional injection therapy. Patient is currently managed with baclofen 20 mg at bedtime. She states this does help however she cannot really take it during the day because it causes drowsiness. Her Joaquim has been reviewed and is appropriate. Injection history 11/08/2024 lumbar medial branch block bilaterally #2 L3-L4 L4-L5, L5-S1 01/05/2024 lumbar medial branch block bilaterally L4-L5 L5-S1 90% relief lasting longer than 6 months 10/30/2023 bilateral SI injections Review of Systems: General: No recent weight changes, no fever, no sleep disturbances Respiratory: No cough, no shortness of air, no recurring pulmonary infections Cardiovascular/peripheral vascular: No chest pain, no palpitations, no edema, no shortness of breath Gastrointestinal: No new onset incontinence, normal bowel movements reported Genitourinary: No new onset incontinence Musculoskeletal: Low back pain, bilateral hip pain Psychiatric: [Normal mood/affect] Neurological: [Denies weakness in extremities], [denies balance issues] Pain at rest (0-10 scale): 8 Objective Objective:: Physical Exam: General: Alert and oriented x3, no acute distress, pleasant and cooperative Lungs: Respirations even and unlabored, symmetrical chest expansion Eyes: PERRL Musculoskeletal: Flexion and extension of lumbar [spine] somewhat guarded secondary to pain, [antalgic gait noted] point tenderness along bilateral SIs with positive bilateral Clovis's, Gretel's, Gaenslen's, compression and distraction exam Neurological: Speech clear, no gross sensory deficit Has patient had previous pain injection?: Yes Percent improvement in pain since last injection: Minimal Conservative treatment options previously tried: Home exercise plan Length of treatment: Longer than 12 weeks Meds Home Medications and Allergies Home Medications ?Medication ?Instructions ?Recorded ?Confirmed ?Type albuterol sulfate 90 mcg/actuation 2 puff inhalation BIDP PRN sob 02/20/23 11/23/24 History aerosol inhaler (Ventolin HFA) aspirin 81 mg tablet,delayed 81 mg PO DAILY heart health 02/20/23 11/23/24 History release atorvastatin 20 mg tablet 20 mg PO HS Cholesterol 02/20/23 11/23/24 History cholecalciferol (vitamin D3) 50 2,000 unit PO DAILY Supplement 02/20/23 11/23/24 History mcg (2,000 unit) tablet colestipol 1 gram tablet 1 g PO DAILY . 02/20/23 11/23/24 History esomeprazole magnesium 40 mg 40 mg PO DAILY GERD 02/20/23 11/23/24 History capsule,delayed release famotidine 40 mg tablet 40 mg PO DAILY GERD 02/20/23 11/23/24 History metformin 500 mg tablet 500 mg PO DAILY Diabetes 02/20/23 11/23/24 History montelukast 10 mg tablet 10 mg PO HS allergies 02/20/23 11/23/24 History omega-3 fatty acids-fish oil 300 1,000 cap PO DAILY Supplement 02/20/23 11/23/24 History mg-1,000 mg capsule propranolol 10 mg tablet 10 mg PO BID Heartburn 05/05/23 02/05/25 History tizanidine 4 mg tablet (Zanaflex) 4 mg PO HS . #30 tabs 03/23/23 11/23/24 Rx methocarbamol 750 mg tablet 750 mg PO BID . 05/05/23 11/23/24 History meloxicam 7.5 mg tablet 7.5 mg PO DAILY . #30 tabs 06/15/23 11/23/24 Rx baclofen 20 mg tablet 20 mg PO HS . #30 tabs 07/08/23 11/23/24 Rx celecoxib 100 mg capsule (Celebrex) 100 mg PO DAILY #14 caps 08/06/23 11/23/24 Rx baclofen 10 mg tablet 10 mg PO TID #42 tabs 10/26/24 11/23/24 Rx New Prescriptions to Start Prescriptions: Allergies Allergy/AdvReac Type Severity Reaction Status Date / Time aspirin AdvReac Verified 10/30/23 11:56 denosumab AdvReac Verified 10/30/23 11:56 morphine AdvReac Verified 10/30/23 11:56 promethazine AdvReac Verified 10/30/23 11:56 Assessment and Plan *Assessment and plan (1) Bilateral sacroiliitis: Status: Acute Category: Medical Code(s): M46.1 - Sacroiliitis, not elsewhere classified Plan Patient is experiencing worsening pain along the low back and bilateral hips. They did have limited range of motion of the lumbar spine along with point tenderness along bilateral SI joints and a positive bilateral Clovis's, Gretel's, Gaenslen's, compression and distraction exam. I did discuss with the patient that I do believe they would benefit from bilateral SI injections. Risk and benefits were discussed with the patient and they would like to proceed forward with this option. Patient has tried and failed conservative therapy including continued at home stretching exercise for longer than 12 weeks. Patient had her last SI injections in October 2023 that did provide 80% improvement in at least eased off the severity for 3 months. Patient has had low back and hip pain with a history of SI pain for longer than 6 months. Patient will be scheduled for bilateral SI injections under fluoroscopy. I will also send in a new prescription of methocarbamol 500 mg twice daily with a 2-week supply for her to try during the day. Patient was counseled that this medication typically does not cause as much drowsiness and to let us know if it does help. Patient has been instructed to contact the clinic with any concerns before the next appointment. Dr. Killian has reviewed this note and agrees with this plan of care. This note was dictated using voice recognition software and make contain errors or omissions. All injections are used with Lidocaine or Bupivacaine and Depo Medrol.
== END 2024-11-23 23:59 | disposition home or self-care (01) ==
PROVIDERS: PCP Emergency Medicine; Visit Provider Nurse Practitioner Family
DX: M46.1 Sacroiliitis, not elsewhere classified (principal); Z73.89 Other problems related to life management difficulty
CPT/HCPCS: 99212; G0463

== ENCOUNTER 2024-12-13 14:29 | Day surgery (SDC) | payer MEDICARE, OTHER, SELFPAY ==
[2024-12-13 14:45] VITALS: BP 125/70; PULSE 74; RESP 16; TEMP 36.8; O2SAT 98; BMI 32.6
[2024-12-13] MEDS: LIDOCAINE 1% 5ML PF VIAL 5 ML (14:55)
[2024-12-13] MEDS: BUPIVACAINE 0.25% 10ML INJ 25 MG IJ (14:55)
[2024-12-13 14:58] VITALS: BP 132/88; PULSE 78; RESP 18; O2SAT 97
--- NOTE | 2024-12-13 15:02 | P.PCN_ITS ---
Procedure Date: 12/13/24 Time: 14:55 Anesthesiologist:: Miguel Neal CRNA Complications:: None Pre-procedure Diagnosis:: Bilateral sacroiliitis Post-procedure Diagnosis:: Same Indications for Procedure:: Patient is a pleasant 64-year-old female who comes our clinic today for bilateral sacroiliac joint injections cortisone local anesthetic. Patient describes low lumbar back pain off the midline bilaterally. Bilateral posterior hip pain. Difficulty transitioning from sitting to standing. She rates her pain 8/10. Procedure Details:: Procedure: Bilateral sacroiliac joint injections under fluoroscopy Informed consent was obtained and the risks and benefits of the procedure were explained to the patient.~ The patient was taken to the procedure room and noninvasive monitors were placed including a noninvasive blood pressure cuff and pulse oximeter.~ The patient was placed prone on the procedure table. Both hips were cleansed using Betadine as a cleansing solution. C-arm fluoroscopy was used to view the right sacroiliac joint.~ The skin and subcutaneous tissues were anesthetized using lidocaine 1.5% and a 25-gauge needle.~ After this, a 22-gauge spinal needle was inserted under fluoroscopic guidance into the inferior aspect of the right sacroiliac joint.~ Omnipaque dye was injected and good spread was seen throughout the joint.~ After this, approximately 5 mL of bupivacaine, 0.25% and Depo-Medrol, 40 mg was incrementally injected into the right sacroiliac joint. We then moved to the left sacroiliac joint.~ The skin and subcutaneous tissues were anesthetized using lidocaine 1.5% and a 25-gauge needle.~ After this, a 22- gauge spinal needle was inserted under fluoroscopic guidance into the inferior aspect of the left sacroiliac joint.~ Omnipaque dye was injected and good spread was seen throughout the joint. After this, approximately 5 mL of bupivacaine, 0.25% and Depo-Medrol, 40 mg was incrementally injected into the left sacroiliac joint.~ The patient tolerated the procedure well with no complications. The patient was observed in the Pain Clinic and then was discharged home neurologically intact. Plan and Disposition:: Patient was discharged without incident.
[2024-12-13 15:09] VITALS: BP 114/81; BP 132/88; PULSE 77; PULSE 78; RESP 18; O2SAT 97; O2SAT 98
== END 2024-12-13 15:10 | disposition home or self-care (01) ==
PROVIDERS: PCP Emergency Medicine; Visit Provider Nurse Anesthetist, Certified Registered
DX: M46.1 Sacroiliitis, not elsewhere classified (principal)
CPT/HCPCS: 27096; G0260; J1010

== ENCOUNTER 2024-12-29 10:30 | Outpatient (POV) | payer MEDICARE, OTHER, SELFPAY ==
[2024-12-29 10:38] VITALS: BP 125/94; PULSE 76; RESP 14; O2SAT 99; BMI 32.8
--- NOTE | 2024-12-29 10:44 | A.OFFVIS_ITS ---
[facility] Disclaimer: The information contained in this section may have been updated after the patient was seen, as this information can be updated by other users. Medical History DDD (degenerative disc disease) Seasonal allergies HTN (hypertension) Diabetes GERD (gastroesophageal reflux disease) HLD (hyperlipidemia) Family History Other No significant family history Social History Smoking Status: Never smoker alcohol intake: never substance use type: denies use current occupational status: other Travel in the last 8 weeks: None PM Subjective & Objective Subjective Subjective:: Patient is a pleasant 64-year-old female who presents today for follow-up of bilateral SI injections on 12/13/2024. Today she rates her pain at 3 out of 10. She denies any new trauma or injury. She does state that she has had at least 90% improvement following these injections and feel like it is still working. She only makes mention that she had a little bit of pain in her upper right leg that she has noticed but it is nothing severe and is very manageable and does come and go. Patient was managed with our office with baclofen 20 mg at bedtime but she states she has not even needed to take this since having these injections. She states she does not need refills at this time. Her Joaquim has been reviewed and is appropriate. Review of Systems: General: No recent weight changes, no fever, no sleep disturbances Respiratory: No cough, no shortness of air, no recurring pulmonary infections Cardiovascular/peripheral vascular: No chest pain, no palpitations, no edema, no shortness of breath Gastrointestinal: No new onset incontinence, normal bowel movements reported Genitourinary: No new onset incontinence Musculoskeletal: Low back pain Psychiatric: [Normal mood/affect] Neurological: [Denies weakness in extremities], [denies balance issues] Pain at rest (0-10 scale): 3 Objective Objective:: Physical Exam: General: Alert and oriented x3, no acute distress, pleasant and cooperative Lungs: Respirations even and unlabored, symmetrical chest expansion Eyes: PERRL Musculoskeletal: Flexion and extension of lumbar spine within normal limits Neurological: Speech clear, no gross sensory deficit Has patient had previous pain injection?: Yes Percent improvement in pain since last injection: 90% Conservative treatment options previously tried: Home exercise plan Length of treatment: Longer than 12 weeks Meds Home Medications and Allergies Home Medications ?Medication ?Instructions ?Recorded ?Confirmed ?Type albuterol sulfate 90 mcg/actuation 2 puff inhalation BIDP PRN sob 02/20/23 12/29/24 History aerosol inhaler (Ventolin HFA) aspirin 81 mg tablet,delayed 81 mg PO DAILY heart health 02/20/23 12/29/24 History release atorvastatin 20 mg tablet 20 mg PO HS Cholesterol 02/20/23 12/29/24 History cholecalciferol (vitamin D3) 50 2,000 unit PO DAILY Supplement 02/20/23 12/29/24 History mcg (2,000 unit) tablet colestipol 1 gram tablet 1 g PO DAILY . 02/20/23 12/29/24 History esomeprazole magnesium 40 mg 40 mg PO DAILY GERD 02/20/23 12/29/24 History capsule,delayed release famotidine 40 mg tablet 40 mg PO DAILY GERD 02/20/23 12/29/24 History metformin 500 mg tablet 500 mg PO DAILY Diabetes 02/20/23 12/29/24 History montelukast 10 mg tablet 10 mg PO HS allergies 02/20/23 12/29/24 History omega-3 fatty acids-fish oil 300 1,000 cap PO DAILY Supplement 02/20/23 12/29/24 History mg-1,000 mg capsule propranolol 10 mg tablet 10 mg PO BID Heartburn 02/20/23 12/29/24 History tizanidine 4 mg tablet (Zanaflex) 4 mg PO HS . #30 tabs 03/23/23 12/29/24 Rx methocarbamol 750 mg tablet 750 mg PO BID . 05/05/23 12/29/24 History meloxicam 7.5 mg tablet 7.5 mg PO DAILY . #30 tabs 06/15/23 12/29/24 Rx baclofen 20 mg tablet 20 mg PO HS . #30 tabs 07/08/23 12/29/24 Rx celecoxib 100 mg capsule (Celebrex) 100 mg PO DAILY #14 caps 08/06/23 12/29/24 Rx baclofen 10 mg tablet 10 mg PO TID #42 tabs 10/26/24 12/29/24 Rx methocarbamol 500 mg tablet 500 mg PO BID #28 tabs 11/23/24 12/29/24 Rx New Prescriptions to Start Prescriptions: Allergies Allergy/AdvReac Type Severity Reaction Status Date / Time aspirin AdvReac Verified 10/30/23 11:56 denosumab AdvReac Verified 10/30/23 11:56 morphine AdvReac Verified 10/30/23 11:56 promethazine AdvReac Verified 10/30/23 11:56 Assessment and Plan *Assessment and plan (1) Bilateral sacroiliitis: Status: Acute Category: Medical Code(s): M46.1 - Sacroiliitis, not elsewhere classified Plan Patient has had significant improvement following her SI injections and does not require any additional injection therapy at this time. Patient will return to clinic in 6 weeks. Patient has been instructed to contact the clinic with any concerns before the next appointment. Dr. Killian has reviewed this note and agrees with this plan of care. This note was dictated using voice recognition software and make contain errors or omissions. All injections are used with Lidocaine, Bupivacaine and Depo Medrol. Occasionally urine drug screen is needed to verify patient's compliance with our office pain contract. This is ordered based off specific treatments related to chronic pain with the potential to abuse certain medications.
== END 2024-12-29 23:59 | disposition home or self-care (01) ==
LOC: SC.PAIN 10:32
PROVIDERS: PCP Emergency Medicine; Visit Provider Nurse Practitioner Family
DX: M46.1 Sacroiliitis, not elsewhere classified (principal)
CPT/HCPCS: 99212; G0463

== ENCOUNTER 2025-02-10 14:16 | Outpatient (POV) | payer MEDICARE, OTHER, SELFPAY ==
--- OUTSIDE RECORDS SUMMARY | 2025-02-10 14:20 | XMS_ITS | Continuity of Care Document ---
Author Organization [facility] Phone Care Team Providers Care Trade [employer] Secretary Name Role Phone LEE MOYER Ayad Primary Care VENTURA GARSIA Primary Attending VENTURA GARSIA Admitting VENTURA GARSIA Unavailable ALLERGIES AND ADVERSE REACTIONS ALLERGIES AND ADVERSE REACTIONS Code System Allergy Substance Adverse Reaction Date Reaction (Severity) Comment Status Reported By Updated By 7056 RXNorm Morphine Adverse reaction to substance Not Specified active [id number] on October 17, 2024 5:58:01 PM UT 8745 RXNorm Phenergan Adverse reaction to substance Not Specified active [id number] on October 17, 2024 5:58:01 PM [facility] [id number] SNOMED CT NSAIDS Drug-induce d nausea and vomiting (Moderate) Shock active [id number] on October 17, 2024 5:58:00 PM [facility] 906698 RXNorm Boniva Adverse reaction to substance Not Specified active [id number] on October 17, 2024 5:58:01 PM [facility] FAMILY HISTORY RELATION: Father Status: Cause of : Unknown Age at : Unknown SNOMED-CT Diagnosis Age At Onset [id number] H/O: alcoholism RELATION: Mother Status: Cause of : Unknown Age at : Unknown SNOMED-CT Diagnosis Age At Onset Information not available RELATION: Sister Status: LIVING SNOMED-CT Diagnosis Age At Onset [id number] Anxiety [id number] Depression screening RESULTS Patient: ABDI ZULETA Date of : 1960 LABORATORY RESULTS ORDER 100: TROPONIN QUANT (L OINC: 31837-9) ORDER DATE: October 17, 2024 6:05:00 PM UT Specimen Source: Serum/Plasm a Specimen Type: Acellular blo od (serum or plasma) specimen PERFORMING LAB: [address] [id number] Result Comment: Final Result Date: October 17, 2024 7:06:00 PM UTC (TECH: MRB) LOINC TEST [place] [address]-4 Troponin I.cardiac panel - Serum or Plasma by High sensitivity method N 21 ng/L 0 ng/L - 51 ng/L October 17, 2024 7:06:00 PM UT (TECH: MRB) ORDER 200: B-TYPE NATRIURETI C PEPTIDE BNP (LOINC: 44559-7) ORDER DATE: October 17, 2024 6:05:00 PM UTC Specimen Source: Whole Blood Specimen Type: Whole blood s ample PERFORMING LAB: [address] [id number] Result Comment: Final Result Date: October 17, 2024 7:30:00 PM UT (TECH: MRB) LOINC TEST FLAG [place] [address]-5 Natriuretic peptide B [Mass/volume] in Serum or Plasma N 56.6 pg/mL 0.0 pg/mL - 100 pg/mL October 17, 2024 7:30:00 PM UT (TECH: MRB) ORDER 300: CBC AUTO W DIFF ( LOINC: 77586-2) ORDER DATE: October 17, 2024 6:05:00 PM UTC Specimen Source: Whole Blood Specimen Type: Whole blood s ample PERFORMING LAB: [address] [id number] Result Comment: Final Result Date: October 17, 2024 6:53:00 PM UTC (TECH: MRB) LOINC TEST FLAG RESULT REFERENCE RANGE UPDA JOVON BY 6690-2 Leukocytes [#/volume] in Blood by Automated count N 8.6 10^3/uL 4.5 10^3/uL - 11.5 10^3/uL October 17, 2024 6:53:00 PM UTC (TECH: MRB) 789-8 Erythrocytes [#/volume] in Blood by Automated count N 4.65 10^6/uL 4.25 10^6/uL - 5.57 10^6/uL October 17, 2024 6:53:00 PM UTC (TECH: MRB) 718-7 Hemoglobin [Mass/volume] in Blood N 13.0 g/dL 12.0 g/dL - 15.7 g/dL October 17, 2024 6:53:00 PM UTC (TECH: MRB) 22499-7 Hematocrit [Volume Fraction] of Blood N 39.8 % 36.0 % - 47.0 % October 17, 2024 6:53:00 PM UTC (TECH: MRB) 787-2 Erythrocyte mean corpuscular volume [Entitic volume] by Automated count N 85.6 fl 80 fl - 95 fl October 17, 2024 6:53:00 PM UTC (TECH: MRB) 75452-0 Erythrocyte mean corpuscular hemoglobin [Entitic mass] in Blood from Fetus by Automated count N 28.0 pg 27.0 pg - 34.0 pg October 17, 2024 6:53:00 PM UTC (TECH: MRB) 05628-3 Erythrocyte mean corpuscular hemoglobin concentration [Mass/volume] in Blood from Fetus by Automated count N 32.7 g/dL 32.0 g/dL - 36.0 g/dL October 17, 2024 6:53:00 PM UTC (TECH: MRB) 31034-6 Platelets [#/volume] in Blood N 231 10^3/uL 150 10^3/uL - 450 10^3/uL October 17, 2024 6:53:00 PM UTC (TECH: MRB) 17109-8 Erythrocyte distribution width [Ratio] N 13.2 % 12.3 % - 15.1 % October 17, 2024 6:53:00 PM UTC (TECH: MRB) 71853-2 Platelet mean volume [Entitic volume] in Blood by Automated count N 10.3 fl 7.4 fl - 10.4 fl October 17, 2024 6:53:00 PM UTC (TECH: MRB) 87948-6 Granulocytes/100 leukocytes in Blood by Automated count H 75.5 % 40 % - 75 % October 17, 2024 6:53:00 PM UTC (TECH: MRB) 736-9 Lymphocytes/100 leukocytes in Blood by Automated count L 13.7 % 15 % - 57 % October 17, 2024 6:53:00 PM UTC (TECH: MRB) 5905-5 Monocytes/100 leukocytes in Blood by Automated count N 10.0 % 4.0 % - 12.0 % October 17, 2024 6:53:00 PM UTC (TECH: MRB) 713-8 Eosinophils/100 leukocytes in Blood by Automated count N 0.0 % 0.0 % - 4.0 % October 17, 2024 6:53:00 PM UTC (TECH: MRB) 706-2 Basophils/100 leukocytes in Blood by Automated count N 0.2 % 0.0 % - 1.0 % October 17, 2024 6:53:00 PM UTC (TECH: MRB) 82932-2 Immature granulocytes [#/volume] in Blood N 0.6 % 0.0 % - 0.8 % October 17, 2024 6:53:00 PM UTC (TECH: MRB) 05108-2 Granulocytes [#/volume] in Blood by Automated count N 6.52 10^3/uL October 17, 2024 6:53:00 PM UTC (TECH: MRB) 731-0 Lymphocytes [#/volume] in Blood by Automated count N 1.18 10^3/uL October 17, 2024 6:53:00 PM UTC (TECH: MRB) 742-7 Monocytes [#/volume] in Blood by Automated count N 0.86 10^3/uL October 17, 2024 6:53:00 PM UTC (TECH: MRB) 711-2 Eosinophils [#/volume] in Blood by Automated count N 0.00 10^3/uL October 17, 2024 6:53:00 PM UTC (TECH: MRB) 704-7 Basophils [#/volume] in Blood by Automated count N 0.02 10^3/uL October 17, 2024 6:53:00 PM UTC (TECH: MRB) 27653-9 Immature granulocytes [#/volume] in Blood N 0.05 10^3/uL October 17, 2024 6:53:00 PM UTC (TECH: MRB) 15719-5 Manual differential performed [Presence] in Blood N NO October 17, 2024 6:53:00 PM UTC (TECH: MRB) ORDER 400: COMP METABOLIC PA MARLEN (LOINC: 43355-7) ORDER DATE: October 17, 2024 6:05:00 PM UTC Specimen Source: Serum/Plasm a Specimen Type: Acellular blo od (serum or plasma) specimen PERFORMING LAB: [facility] [address] [place] [id number] Result Comment: Final Result Date: October 17, 2024 7:06:00 PM UTC (TECH: MRB) LOINC TEST FLAG RESULT REFERENCE RANGE UPDA JOVON BY 2951-2 Sodium [Moles/volume ] in Serum or Plasma N 140 mmol/L 136 mmol/L - 145 mmol/L October 17, 2024 7:06:00 PM UTC (TECH: MRB) 2823-3 Potassium [Moles/vol ume] in Serum or Plasma L 3.3 mmol/L 3.5 mmol/L - 5.1 mmol/L October 17, 2024 7:06:00 PM UTC (TECH: MRB) 2075-0 Chloride [Moles/volu me] in Serum or Plasma N 104 mmol/L 98 mmol/L - 107 mmol/L October 17, 2024 7:06:00 PM UTC (TECH: MRB) 8-9 Carbon dioxide, tota l [Moles/volume] in Serum or Plasma N 25 mmol/L 21 mmol/L - 32 mmol/L October 17, 2024 7:06:00 PM UTC (TECH: MRB) 18149-7 Anion gap 3 in Serum or Plasma N 11.0 October 17 7:06:00 PM UTC (TECH: MRB) 2345-7 Glucose [Mass/volume ] in Serum or Plasma H 113 mg/dL 70 mg/dL - 110 mg/dL October 17, 2024 7:06:00 PM UTC (TECH: MRB) 3094-0 Urea nitrogen [Mass/volume] in Serum or Plasma N 9 mg/dL 7 mg/dL - 18 mg/dL October 17, 2024 7:06:00 PM UTC (TECH: MRB) 2160-0 Creatinine [Mass/vol ume] in Serum or Plasma N 1.0 mg/dL 0.6 mg/dL - 1.0 mg/dL October 17, 2024 7:06:00 PM UTC (TECH: MRB) 3097-3 Urea nitrogen/Creati nine [Mass Ratio] in Serum or Plasma N 9.0 9 - 21 October 17 7:06:00 PM UTC (TECH: MRB) 31155-5 Glomerular filtratio n rate/1.73 sq M.predicted by Creatinine-based formula (MDRD) N 63 mL/min >60 October 17 7:06:00 PM [facility] (TECH: MRB) 2885-2 Protein [Mass/volume ] in Serum or Plasma N 7.0 g/dL 6.4 g/dL - 8.2 g/dL October 17, 2024 7:06:00 PM [facility] (TECH: MRB) 1751-7 Albumin [Mass/volume ] in Serum or Plasma L 2.7 g/dL 3.4 g/dL - 5.0 g/dL October 17, 2024 7:06:00 PM [facility] (TECH: MRB) 69921-7 Calcium [Mass/volume ] in Serum or Plasma N 9.1 mg/dL 8.5 mg/dL - 10.1 mg/dL October 17, 2024 7:06:00 PM [facility] (TECH: MRB) 37368-8 Calcium [Mass/volume ] corrected for total protein in Serum or Plasma N 10.1 mg/dL 8.5 mg/dL - 1 0.1 mg/dL October 17, 2024 7:06:00 PM [facility] (TECH: MRB) 1975-2 Bilirubin.total [Mass/volume] in Serum or Plasma N 0.6 mg/dL 0.4 mg/dL - 1.5 mg/dL October 17, 2024 7:06:00 PM [facility] (TECH: MRB) 1920-8 Aspartate aminotrans ferase [Enzymatic activity/volume] in Serum or Plasma N 27 U/L 15 U/L - 37 U/L October 17 7:06:00 PM [facility] (TECH: MRB) 1742-6 Alanine aminotransfe rase [Enzymatic activity/volume] in Serum or Plasma N 27 U/L 12 U/L - 78 U/L October 17 7:06:00 PM [facility] (TECH: MRB) 6768-6 Alkaline phosphatase [Enzymatic activity/volume] in Serum or Plasma N 100 U/L 53 U/L - 141 U/L October 17 7:06:00 PM [facility] (TECH: MRB) LABORATORY NARRATIVE RESULTS Information is not available RADIOLOGY RESULTS ORDER 600: CHEST SINGLE VIEW /PORTABLE (LOINC: 89208-9) ORDER DATE: October 17, 2024 6:05:00 PM [facility] PERFORMING LAB: [facility] [address] [facility] [place] [id number] Final Result Date: October 17, 2024 6:32:[address] [place] [address] Name: SONG PATTON Exam Date: 10/17/2024 : 1960 Age 64 years Gender: F Physician: VENTURA GARSIA Facility: [facility] Facility HSV: Outpatient Exam: CHEST SINGLE VIEW/PORTABLE A XR CHEST 1 VIEW PORTABLE performed on 10/17/2024 12:32 PM CCNP. INDICATION: Flu symptoms. TECHNIQUE: One view frontal radiograph of the chest. COMPARISON: 10/13/2024. FINDINGS: * Normal cardiomediastinal contours. * No pleural effusion or pneumothorax. * Similar linear perihilar subsegmental atelectasis. No focal consolidation or pulmonary edema. * No acute displaced fracture. IMPRESSION: No acute cardiopulmonary findings. Electronically signed by: Trung Mccray DO 10/17/2024 01:47 PM [facility] [place] Dictated By: TRUNG MCCRAY Transcribed By: Transcribed On: 10/17/2024 1:32 PM Electronically signed by: TRUNG MCCRAY 10/17/2024 Thank you for referring SONG PATTON to [facility]. Legally authenticated by MAHENDRA ULLOA 2024-10-17 13:32:36 PATHOLOGY NARRATIVE RESULTS Information is not available MICROBIOLOGY RESULTS No Micro Labs/Results Exist for Patient BLOOD ADMIN RESULTS Information is not available MEDICATIONS HOME MEDICATIONS Status RXNORM NDC Medication Dose Route Frequency Dates Comments Reported By Updated By Active [id number] 40295 87399 5 Restasis MultiDose 0.05 % drops 1.0 DRP OPHTHA LMIC DAILY Last Dose: [facility] 2023 1:00:0 0 PM UTC [id number] on October 17, 2024 5:58:03 PM UT Active 5118940 66873 81605 8 Symbicort 160-4.5 mcg/actuatio n HFA Aerosol Inhaler 2.0 PUF INHALE D DAILY Last Dose: [facility] 2023 1:00:0 0 PM UTC [id number] on October 17, 2024 5:58:03 PM UTC Active 38792 00189 9 fluticasone propionate 50 mcg/actuatio n spray, suspension 1.0 SPR DAILY Last Dose: [facility] 2023 1:00:0 0 PM UTC [id number] on October 17, 2024 5:58:03 PM UTC Active 154423 72032 69548 1 furosemide 20 mg tablet 1.0 TAB ORAL Q48H Last Dose: [facility] 2023 1:00:0 0 PM UTC [id number] on October 17, 2024 5:58:03 PM UT Active 473288 66036 68318 3 esomeprazole magnesium 40 mg capsule,flynn yed release (e.c.) 1.0 CAP ORAL DAILY Last Dose: [facility] 2023 1:00:0 0 PM UTC [id number] on October 17, 2024 5:58:04 PM UTC Active 868528 77906 44776 1 propranolol 60 mg tablet 1.0 TAB ORAL DAILY Last Dose: [facility] 2023 1:00:0 0 PM UTC [id number] on October 17, 2024 5:58:04 PM UT Active 7260161 93060 30132 1 aspirin 81 mg capsule 1.0 CAP ORAL DAILY Last Dose: [facility] 2023 1:00:0 0 PM UTC [id number] on October 17, 2024 5:58:04 PM UTC Active 07526 35838 1 Vitamin D3 50 mcg (2,000 unit) tablet 1.0 TAB ORAL DAILY Last Dose: [facility] 2023 1:00:0 0 PM UTC [id number] on October 17, 2024 5:58:04 PM UT Active 5115347 44368 17585 0 Linzess 72 mcg capsule 1.0 CAP ORAL DAILY Last Dose: [facility] 2023 1:00:0 0 PM UTC [id number] on October 17, 2024 5:58:04 PM UTC Active FreeT extMe d metformin oral 250 mg 1.0 TAB DAILY Last Dose: [facility] 2023 1:00:0 0 PM UTC [id number] on October 17, 2024 5:58:04 PM UTC Active 917125 27057 46577 9 atorvastatin 20 mg tablet 1.0 TAB ORAL DAILY Last Dose: [facility] 2023 1:00:0 0 PM UTC [id number] on October 17, 2024 5:58:05 PM UTC Active 44183 18204 5 Systane (propylene glycol) 0.4-0.3 % drops 2.0 DRP OPHTHA LMIC DAILY Last Dose: [facility] 2023 1:00:0 0 PM UTC 1 drop each eye every am, 1 drop each 3p [id number] on October 17, 2024 5:58:05 PM UTC Active 886897 09214 60974 1 montelukast 10 mg tablet 1.0 TAB ORAL BEDTIME Last Dose: [facility] 2023 1:00:0 0 PM UTC [id number] on October 17, 2024 5:58:05 PM UTC Active 666319 39809 80327 1 famotidine 40 mg tablet 1.0 TAB ORAL BEDTIME Last Dose: [facility] 2023 1:00:0 0 AM UTC [id number] on October 17, 2024 5:58:05 PM UTC Active 413071 53027 86498 0 Ventolin HFA 90 mcg/actuatio n HFA Aerosol Inhaler 2.0 INH INHALE D PRN Last Dose: [id number] on October 17, 2024 5:58:05 PM UTC Active 433538 81897 09454 3 ondansetron HCl 4 mg tablet 0.0 ORAL PRN Last Dose: [id number] on October 17, 2024 5:58:05 PM UTC Active 0472680 17738 39740 6 fluoride (sodium) 1.1 % gel 1.0 DEISY DAILY Last Dose: [facility] 2023 1:00:0 0 PM UTC [id number] on October 17, 2024 5:58:05 PM UT Active 245949 16980 79763 5 oseltamivir phos (TAMIFLU) 75.0 MG ORAL BID Last Dose: [facility] 20[facility] 1:00:0 0 PM UTC [id number] on October 17, 2024 5:58:06 PM UT DISCHARGE MEDICATIONS Status RXNORM NDC Medication Dose Route Frequency Dates Comments Physician Updated By No Discharge Medication Info rmation Available INPATIENT MEDICATIONS Status RXNORM NDC Medication Dose Route Frequency Rat e Quantity Dates Comments Physician Updated By Discont inued [id number] 9831 9475 503 ondansetron (ZOFRAN) 4 MG/2ML SOLN 4.0 MG INTRAV ENOUS ONE TIME ONLY Start: [facility] 2023 6:28:0 0 PM UTC End: [facility] 2023 6:28:0 0 PM UTC ADY WHITEHEAD MD INTERFAC ED on October 17, 2024 6:27:00 PM UTC Discont inued [id number] 4435 3073 912 famotidine (PEPCID) 20 MG/2ML SOLN 20.0 MG INTRAV ENOUS ONE TIME ONLY Start: [facility] er 2023 6:28:0 0 PM UTC End: [facility] er 2023 6:28:0 0 PM UTC ADY WHITEHEAD MD INTERFAC ED on October 17, 2024 6:27:00 PM UTC Discont inued 0031338 3871 5531 911 KLOR-CON M20 20 MEQ TBCR 20.0 MEQ ORAL ONE TIME ONLY Start: [facility] er 2023 7:52:0 0 PM UTC End: [facility] er 2023 7:52:0 0 PM UTC ADY WHITEHEAD MD INTERFAC ED on October 17, 2024 7:50:00 PM UTC SOCIAL HISTORY SOCIAL HISTORY SNOMED-CT Social History Element Description Effective Dates Offered Cessation Comment UpdatedBy [id number] Current Tobacco smoking status Never Smoked [id number] on October 17, 2024 6:00:21 PM UT SOCIAL HISTORY - Gender Sex: Female SOCIAL HISTORY - Status : status i nformation is not available Intention in Next Year: intention information is not available SOCIAL HISTORY - Sexual Behavior Sexual Orientation Gender Identity SNOMED-CT Description SNO MED -CT Description Activity Level No of Partners Partner Type UpdatedBy Information is not available VITAL SIGNS PATIENT VITAL SIGNS This section displays the mo st recent value for each vital sign as of October 21, 2024 3:42:17 AM [facility] Loinc Code Vital Sign Activity Date Result Updated By 8310-5 Body temperature October 17 5:35:00 PM UT 98.3 [degF] [id number] on October 18, 2024 8:27:21 PM [facility] 92430-7 Body weight Measured September 8:27:23 PM UT 80.739 kg (178.0 lb) [id number] on October 18, 2024 8:27:23 PM [facility] 8462-4 Diastolic blood pressure October 17, 2024 8:09:35 PM UTC 56.0 mm[Hg] [id number] on October 18, 2024 8:27:23 PM [facility] 8867-4 Heart rate October 17 8:09:35 PM UT 78 /min [id number] on October 18, 2024 8:27:23 PM [facility] 37338-4 Oxygen saturation in Arterial blood by Pulse oximetry October 17, 2024 8:09:35 PM UT 96.0 % [id number] on October 18, 2024 8:27:23 PM [facility] 9279-1 Respiratory rate October 17 8:09:35 PM UTC 18 /min [id number] on October 18, 2024 8:27:23 PM [facility] 8480-6 Systolic blood pressure October 17, 2024 8:09:35 PM UT 112.0 mm[Hg] [id number] on October 18, 2024 8:27:23 PM [facility] PEDIATRIC GROWTH CHART - VITAL SIGNS This section displays Head C ircumference Percentile, Weight for Length Percentile and BMI Percentile Loinc Code Pediatric Measure Age (Months) Result Updat ed By No Pediatric Growth Chart Pe rcentile Information Available. HEALTH CONCERNS Problems Concern Status Health Concern problem infor mation not available. Smoking Status Status Years Used Consumed packs p er day Health Concern smoking histo ry information not available. Family History Concern Status Health Concern family histor y information not available. ENCOUNTERS ENCOUNTER INFORMATION Reason for Visit WEAKNESS Admission October 17, 2024 5:30:[address] [id number] Discharge October 17, 2024 8:25:00 PM [facility] DISCHARGED TO HOME OR SELF CARE ENCOUNTER DIAGNOSES Notes information is not fanny ilable. Code System Diagnosis Onset Date Diagnosis information is not available. ABSTRACT DIAGNOSES Code System Diagnosis Updated By R11.2 ICD10 NAUSEA WITH VOMITING, UNSPEC IFIED [id number] on October 21, 2024 3:41:41 AM [facility] R19.7 ICD10 DIARRHEA, UNSPECIFIED [id number] 0 on October 21, 2024 3:41:41 AM [facility] R05.9 ICD10 COUGH, UNSPECIFIED [id number] o n October 21, 2024 3:41:41 AM [facility] M62.81 ICD10 MUSCLE WEAKNESS (GENERALIZED ) [id number] on October 21, 2024 3:41:41 AM [facility] G93.31 ICD10 POSTVIRAL FATIGUE SYNDROME B [id number] on October 21, 2024 3:41:41 AM [facility] J45.909 ICD10 UNSPECIFIED ASTHMA, UNCOMPLI CATED [id number] on October 21, 2024 3:41:41 AM [facility] E11.9 ICD10 TYPE 2 DIABETES MELLITUS WITHOUT COMPLICATIONS [id number] on October 21, 2024 3:41:41 AM [facility] K21.9 ICD10 GASTRO-ESOPHAGEA L REFLUX DISEASE WITHOUT ESOPHAGITIS [id number] on October 21, 2024 3:41:41 AM [facility] F41.8 ICD10 OTHER SPECIFIED ANXIETY DISO RDERS [id number] on October 21, 2024 3:41:41 AM [facility] Z90.49 ICD10 ACQUIRED ABSENCE OF OTHER SPECIFIED PARTS OF DIGESTIVE TRACT [id number] on October 21, 2024 3:41:41 AM [facility] Z88.5 ICD10 ALLERGY STATUS TO NARCOTIC A GENT [id number] on October 21, 2024 3:41:41 AM [facility] Z88.6 ICD10 ALLERGY STATUS TO ANALGESIC AGENT [id number] on October 21, 2024 3:41:41 AM [facility] Z88.8 ICD10 ALLERGY STATUS T O OTHER DRUGS, MEDICAMENTS AND BIOLOGICAL SUBSTANCES [id number] on October 21, 2024 3:41:41 AM [facility] Z79.51 ICD10 STOVE MOUNTER (CURRE NT) USE OF INHALED STEROIDS [id number] on October 21, 2024 3:41:41 AM [facility] Z79.84 ICD10 STOVE MOUNTER (CURRE NT) USE OF ORAL HYPOGLYCEMIC DRUGS [id number] on October 21, 2024 3:41:41 AM [facility] Z79.899 ICD10 OTHER SKILLED NURSING (CURRENT) DR HAZEL CAM [id number] on October 21, 2024 3:41:41 AM [facility] CARE TEAM Care Trade [employer] Secretary Role LEE MOYER Primary Care VENTURA GARSIA Primary Attending VENTURA GARSIA Admitting [facility] [place] Referring CARE TEAM CARE esl tutor Role on Team Status Start Date End Date Update d By ADY WHITEHEAD MD Referring normal October 17, 2024 5:31:45 PM UT October 17, 2024 8:25:00 PM UT [id number] on October 17, 2024 5:31:45 PM [facility] ADY WHITEHEAD MD Attending normal October 17, 2024 5:31:45 PM UT October 17, 2024 8:25:00 PM UT [id number] on October 17, 2024 5:31:45 PM [facility] ADY WHITEHEAD MD Admitting normal October 17, 2024 5:31:45 PM UT October 17, 2024 8:25:00 PM UT [id number] on October 17, 2024 5:31:45 PM [facility] JOÃO Lion MD Y PCP normal October 17, 2024 5:30:44 PM UT October 17, 2024 8:25:00 PM UT [id number] on October 17, 2024 5:31:45 PM [facility]
--- OUTSIDE RECORDS SUMMARY | 2025-02-10 14:20 | XMS_ITS | Continuity of Care Document ---
Author Organization [facility] Phone Care Team Providers Care Distribution Agent Name Role Phone LEE MOYER Admitting LEE MOYER Unavailable LEE MOYER Primary Care LEE MOYER Primary Attending [phone] ALLERGIES AND ADVERSE REACTIONS ALLERGIES AND ADVERSE REACTIONS Code System Allergy Substance Adverse Reaction Date Reaction (Severity) Comment Status Reported By Updated By [id number] RXNorm Morphine Adverse reaction to substance Not Specified active [id number] on October 17, 2024 5:58:01 PM [facility] 8745 RXNorm Phenergan Adverse reaction to substance Not Specified active [id number] on October 17, 2024 5:58:01 PM [facility] [id number] SNOMED CT NSAIDS Drug-induce d nausea and vomiting (Moderate) Shock active [id number] on October 17, 2024 5:58:00 PM [facility] [id number] RXNorm Boniva Adverse reaction to substance Not Specified active [id number] on October 17, 2024 5:58:01 PM [facility] FAMILY HISTORY RELATION: Father Status: Cause of : Unknown Age at : Unknown SNOMED-CT Diagnosis Age At Onset [id number] H/O: alcoholism RELATION: Mother Status: Cause of : Unknown Age at : Unknown SNOMED-CT Diagnosis Age At Onset Information not available RELATION: Sister Status: LIVING SNOMED-CT Diagnosis Age At Onset [id number] Anxiety [id number] Depression screening RESULTS Patient: ABDI ZULETA Date of : 1960 LABORATORY RESULTS ORDER 100: HEMOGLOBIN A1C (L OINC: 4548-4) ORDER DATE: January 31, 2025 7:30:00 PM UTC Specimen Source: Whole Blood Specimen Type: Whole blood s ample PERFORMING LAB: [address] [id number] Result Comment: Final Result Date: January 31, 2025 8:35:00 PM UT (TECH: MRB) LOINC TEST FLAG RESULT REFERENCE RANGE UPDA JOVON BY 4548-4 Hemoglobin A1c/Hemoglobin.tota l in Blood N 5.6 % 4.5 % - 6.2 % January 31, 2025 8:35:00 PM UTC (TECH: MRB) 30007-7 Glucose mean value [Mass/volume] in Blood Estimated from glycated hemoglobin N 114 mg/dl 82 mg/dl - 131 mg/dl January 31, 2025 8:35:00 PM UTC (TECH: MRB) ORDER 200: COMP METABOLIC PA MARLEN (LOINC: 47316-6) ORDER DATE: January 31, 2025 7:30:00 PM UT Specimen Source: Serum/Plasm a Specimen Type: Acellular blo od (serum or plasma) specimen PERFORMING LAB: [address] [id number] Result Comment: Final Result Date: January 31, 2025 8:35:00 PM UT (TECH: MRB) LOINC TEST FLAG RESULT REFERENCE RANGE UPDA JOVON BY 2951-2 Sodium [Moles/volume ] in Serum or Plasma N 141 mmol/L 136 mmol/L - 145 mmol/L January 31, 2025 8:35:00 PM UT (TECH: MRB) 2823-3 Potassium [Moles/volume] in Serum or Plasma N 4.1 mmol/L 3.5 mmol/L - 5.1 mmol/L January 31, 2025 8:35:00 PM UT (TECH: MRB) 5-0 Chloride [Moles/volu me] in Serum or Plasma N 106 mmol/L 98 mmol/L - 107 mmol/L January 31, 2025 8:35:00 PM UTC (TECH: MRB) 2027-9 Carbon dioxide, tota l [Moles/volume] in Serum or Plasma N 27 mmol/L 21 mmol/L - 32 mmol/L January 31, 2025 8:35:00 PM UTC (TECH: MRB) 10415-5 Anion gap 3 in Serum or Plasma N 8.0 January 31, 2025 8:35:00 PM UTC (TECH: MRB) 2345-7 Glucose [Mass/volume ] in Serum or Plasma N 101 mg/dL 70 mg/dL - 110 mg/dL January 31, 2025 8:35:00 PM UTC (TECH: MRB) 3094-0 Urea nitrogen [Mass/volume] in Serum or Plasma N 17 mg/dL 7 mg/dL - 18 mg/dL January 31, 2025 8:35:00 PM UTC (TECH: MRB) 2160-0 Creatinine [Mass/volume] in Serum or Plasma N 0.9 mg/dL 0.6 mg/dL - 1.0 mg/dL January 31, 2025 8:35:00 PM UTC (TECH: MRB) 3097-3 Urea nitrogen/Creatinine [Mass Ratio] in Serum or Plasma N 18.9 - January 31, 2025 8:35:00 PM UTC (TECH: MRB) 26199-4 Glomerular filtratio n rate/1.73 sq M.predicted by Creatinine-based formula (MDRD) N 71 mL/min >60 January 31, 2025 8:35:00 PM UTC (TECH: MRB) 82940-4 Osmolality of Serum or Plasma by calculated by sum of electrolytes N 295 mosm/kg 275 mosm/kg - 301 mosm/kg January 31, 2025 8:35:00 PM UTC (TECH: MRB) 2885-2 Protein [Mass/volume ] in Serum or Plasma N 6.4 g/dL 6.4 g/dL - 8.2 g/dL January 31, 2025 8:35:00 PM UTC (TECH: MRB) 1751-7 Albumin [Mass/volume ] in Serum or Plasma L 3.3 g/dL 3.4 g/dL - 5.0 g/dL January 31, 2025 8:35:00 PM UTC (TECH: MRB) 29647-5 Calcium [Mass/volume ] in Serum or Plasma N 9.6 mg/dL 8.5 mg/dL - 10.1 mg/dL January 31, 2025 8:35:00 PM UTC (TECH: MRB) 82316-6 Calcium [Mass/volume ] corrected for total protein in Serum or Plasma H 10.2 mg/dL 8.5 mg/dL - 10.1 mg/dL January 31, 2025 8:35:00 PM UTC (TECH: MRB) 1975-2 Bilirubin.total [Mass/volume] in Serum or Plasma L 0.2 mg/dL 0.4 mg/dL - 1.5 mg/dL January 31, 2025 8:35:00 PM UTC (TECH: MRB) 1920-8 Aspartate aminotransferase [Enzymatic activity/volume] in Serum or Plasma L 13 U/L 15 U/L - 37 U/L January 31, 2025 8:35:00 PM UTC (TECH: MRB) 1742-6 Alanine aminotransferase [Enzymatic activity/volume] in Serum or Plasma N 16 U/L 12 U/L - 78 U/L January 31, 2025 8:35:00 PM UTC (TECH: MRB) 6768-6 Alkaline phosphatase [Enzymatic activity/volume] in Serum or Plasma N 126 U/L 53 U/L - 141 U/L January 31, 2025 8:35:00 PM UTC (TECH: MRB) ORDER 600: MICROALBUMIN/CREA TININE URINE (LOINC: 82545-9) ORDER DATE: January 31, 2025 8:12:00 PM UTC Specimen Source: URINE Specimen Type: Urine specime n PERFORMING LAB: [address] [id number] Result Comment: Final Result Date: January 31, 2025 8:54:00 PM UT (TECH: MRB) LOINC TEST [place] [address]-6 Microalbumin [Mass/volume] in Urine N 2.1 mcg/mL 1.3 mcg/mL - 17.0 mcg/mL January 31, 2025 8:54:00 PM UTC (TECH: MRB) 2161-8 Creatinine [Mass/volume] in Urine N 78.3 mg/dL 30 mg/dL - 125 mg/dL January 31, 2025 8:54:00 PM UTC (TECH: MRB) 03666-1 Microalbumin/Creatin in e [Mass Ratio] in Urine N 0.0 ug/mg CREAT 0.0 ug/mg CREAT - 30.0 ug/mg CREAT January 31, 2025 8:54:00 PM UTC (TECH: MRB) LABORATORY NARRATIVE RESULTS Information is not available RADIOLOGY RESULTS Information is not available PATHOLOGY NARRATIVE RESULTS Information is not available MICROBIOLOGY RESULTS No Micro Labs/Results Exist for Patient BLOOD ADMIN RESULTS Information is not available MEDICATIONS HOME MEDICATIONS Status RXNORM NDC Medication Dose Route Frequency Dates Comments Reported By Updated By Drug Treatment Unknown DISCHARGE MEDICATIONS Status RXNORM NDC Medication Dose Route Frequency Dates Comments Physician Updated By No Discharge Medication Info rmation Available INPATIENT MEDICATIONS Status RXNORM NDC Medication Dose Route Frequency Rat e Quantity Dates Comments Physician Updated By No Inpatient Medication Info rmation Available SOCIAL HISTORY SOCIAL HISTORY SNOMED-CT Social History Element Description Effective Dates Offered Cessation Comment UpdatedBy [id number] Historical Tobacco smoking status Never Smoked [id number] on October 17, 2024 6:00:21 PM [facility] SOCIAL HISTORY - Gender Sex: Female SOCIAL HISTORY - Status : status i nformation is not available Intention in Next Year: intention information is not available SOCIAL HISTORY - Sexual Behavior Sexual Orientation Gender Identity SNOMED-CT Description SNO MED -CT Description Activity Level No of Partners Partner Type UpdatedBy Information is not available HEALTH CONCERNS Problems Concern Status Health Concern problem infor mation not available. Smoking Status Status Years Used Consumed packs p er day Health Concern smoking histo ry information not available. Family History Concern Status Health Concern family histor y information not available. ENCOUNTERS ENCOUNTER INFORMATION Reason for Visit E11.9 Admission January 31, 2025 7:30:[address] [address] Discharge January 31, 2025 8:30:00 PM [facility] DI SCHARGED TO HOME OR SELF CARE ENCOUNTER DIAGNOSES Notes information is not fanny ilable. Code System Diagnosis Onset Date Diagnosis information is not available. ABSTRACT DIAGNOSES Code System Diagnosis Updated By E11.9 ICD10 TYPE 2 DIABETES MELLITUS WITHOUT COMPLICATIONS [id number] on February 03, 2025 7:04:02 AM [facility] E11.9 ICD10 TYPE 2 DIABETES MELLITUS WITHOUT COMPLICATIONS [id number] on February 03, 2025 7:04:04 AM [facility] CARE TEAM Care Distribution Agent Role LEE MOYER Admitting LEE MOYER Referring LEE MOYER Primary Care LEE MOYER Primary Attending CARE TEAM CARE safety trainer Role on Team Status Start Date End Date Update d By JOÃO PATTERSON Referring normal January 31, 2025 4:00:00 AM [facility] January 31, 2025 8:30:00 PM [facility] [id number] on February 01, 2025 11:02:45 AM [facility] JOÃO PATTERSON Attending normal January 31, 2025 4:00:00 AM [facility] January 31, 2025 8:30:00 PM [facility] [id number] on February 01, 2025 11:02:45 AM [facility] JOÃO PATTERSON Admitting normal January 31, 2025 4:00:00 AM [facility] January 31, 2025 8:30:00 PM [facility] [id number] on February 01, 2025 11:02:45 AM [facility] JOOÃ PATTERSON PCP normal January 31, 2025 7:30:18 PM [facility] January 31, 2025 8:30:00 PM [facility] [id number] on February 01, 2025 11:02:45 AM [facility]
[2025-02-10 14:28] VITALS: BP 119/73; PULSE 73; RESP 16; TEMP 36.9; O2SAT 98; BMI 33.6
--- NOTE | 2025-02-10 14:49 | XR_ITS ---
FINAL REPORT CLINICAL HISTORY: Low back pain pt states injectin 6 weeks ago, c/o low back pain FINDINGS: LUMBAR SPINE Three views were obtained. There is no acute fracture. There is moderate facet sclerosis in the lower lumbar spine. The disc spaces are well-preserved. There is no malalignment. IMPRESSION: No acute process. Reviewed, Interpreted and Dictated by John Strong MD Transcribed by Michelle Francisco Authenticated and [facility]
--- NOTE | 2025-02-10 14:49 | XR_ITS ---
FINAL REPORT CLINICAL HISTORY: Neck pain f/u injection x6 weeks ago FINDINGS: CERVICAL SPINE Three views were obtained. There is no acute fracture. There is mild disc space narrowing at C5-6 and C6-7 with small posterior osteophytes. There is no malalignment. IMPRESSION: Degenerative changes as above. Reviewed, Interpreted and Dictated by John Strong MD Transcribed by Michelle Francisco Authenticated and [facility]
--- NOTE | 2025-02-10 15:47 | EXP.PAIN.SOA ---
[facility] Disclaimer: The information contained in this section may have been updated after the patient was seen, as this information can be updated by other users. Medical History (Updated 02/10/25 @ 16:09 by Carmen Sandra APRN) DDD (degenerative disc disease) Seasonal allergies HTN (hypertension) Diabetes GERD (gastroesophageal reflux disease) HLD (hyperlipidemia) Family History Other No significant family history Social History Smoking Status: Never smoker alcohol intake: never substance use type: denies use current occupational status: other Travel in the last 8 weeks: None PM Subjective & Objective Subjective Subjective:: Patient is a pleasant 64-year-old female who presents today for follow-up. She does rate her pain today a 6 overall. She states that she does continue to have chronic pain in her neck as well as her low back and primarily the right hip. Patient did previously have SI injections back in November that did provide 90% relief however feels like they are already wearing off. Patient states that her pain just continues to be all across to her low back and is worse with lifting or twisting. Patient does state the pain interferes with her ability perform activities of daily living such as cooking and cleaning. Patient has been prescribed baclofen 20 mg at bedtime from our office however in previous visit she had not been having to use this as often when her SI injections were helping. Her Joaquim has been reviewed and is appropriate. Injection history 12/13/2024 bilateral SI injections 90% 11/08/2024 lumbar medial branch block bilaterally #2 L3-L4 L4-L5, L5-S1 80% temporary 01/05/2024 lumbar medial branch block bilaterally L4-L5 L5-S1 90% relief lasting longer than 6 months 10/30/2023 bilateral SI injections Review of Systems: General: No recent weight changes, no fever, no sleep disturbances Respiratory: No cough, no shortness of air, no recurring pulmonary infections Cardiovascular/peripheral vascular: No chest pain, no palpitations, no edema, no shortness of breath Gastrointestinal: No new onset incontinence, normal bowel movements reported Genitourinary: No new onset incontinence Musculoskeletal: Neck pain, low back pain, right hip pain Psychiatric: [Normal mood/affect] Neurological: [Denies weakness in extremities], [denies balance issues] Pain at rest (0-10 scale): 6 Objective Objective:: Physical Exam: General: Alert and oriented x3, no acute distress, pleasant and cooperative Lungs: Respirations even and unlabored, symmetrical chest expansion Eyes: PERRL Musculoskeletal: Flexion and extension of lumbar [spine] somewhat guarded secondary to pain, [antalgic gait noted] positive Kemps test, point tenderness along right greater trochanteric bursa Neurological: Speech clear, no gross sensory deficit Has patient had previous pain injection?: No Conservative treatment options previously tried: Home exercise plan Length of treatment: Longer than 12 weeks Meds Home Medications and Allergies Home Medications ?Medication ?Instructions ?Recorded ?Confirmed ?Type albuterol sulfate 90 mcg/actuation 2 puff inhalation BIDP PRN sob 02/20/23 02/10/25 History aerosol inhaler (Ventolin HFA) aspirin 81 mg tablet,delayed 81 mg PO DAILY heart health 02/20/23 02/10/25 History release atorvastatin 20 mg tablet 20 mg PO HS Cholesterol 02/20/23 02/10/25 History cholecalciferol (vitamin D3) 50 2,000 unit PO DAILY Supplement 02/20/23 02/10/25 History mcg (2,000 unit) tablet colestipol 1 gram tablet 1 g PO DAILY . 02/20/23 02/10/25 History esomeprazole magnesium 40 mg 40 mg PO DAILY GERD 02/20/23 02/10/25 History capsule,delayed release famotidine 40 mg tablet 40 mg PO DAILY GERD 02/20/23 02/10/25 History metformin 500 mg tablet 500 mg PO DAILY Diabetes 02/20/23 02/10/25 History montelukast 10 mg tablet 10 mg PO HS allergies 02/20/23 02/10/25 History omega-3 fatty acids-fish oil 300 1,000 cap PO DAILY Supplement 02/20/23 02/10/25 History mg-1,000 mg capsule propranolol 10 mg tablet 10 mg PO BID Heartburn 02/20/23 02/10/25 History tizanidine 4 mg tablet (Zanaflex) 4 mg PO HS . #30 tabs 03/23/23 02/10/25 Rx methocarbamol 750 mg tablet 750 mg PO BID . 05/05/23 02/10/25 History meloxicam 7.5 mg tablet 7.5 mg PO DAILY . #30 tabs 06/15/23 02/10/25 Rx baclofen 20 mg tablet 20 mg PO HS . #30 tabs 07/08/23 02/10/25 Rx celecoxib 100 mg capsule (Celebrex) 100 mg PO DAILY #14 caps 08/06/23 02/10/25 Rx baclofen 10 mg tablet 10 mg PO TID #42 tabs 10/26/24 02/10/25 Rx methocarbamol 500 mg tablet 500 mg PO BID #28 tabs 11/23/24 02/10/25 Rx New Prescriptions to Start Prescriptions: Allergies Allergy/AdvReac Type Severity Reaction Status Date / Time aspirin AdvReac Verified 10/30/23 11:56 denosumab AdvReac Verified 10/30/23 11:56 morphine AdvReac Verified 10/30/23 11:56 promethazine AdvReac Verified 10/30/23 11:56 Assessment and Plan *Assessment and plan (1) Lumbar facet arthropathy: Status: Acute Category: Medical Code(s): M47.816 - Spondylosis without myelopathy or radiculopathy, lumbar region (2) Degenerative disc disease, lumbar: Status: Acute Category: Medical Code(s): M51.369 - Other intervertebral disc degeneration, lumbar region without mention of lumbar back pain or lower extremity pain (3) Neck pain: Status: Acute Category: Medical Code(s): M54.2 - Cervicalgia (4) Greater trochanteric bursitis of right hip: Status: Acute Category: Medical Code(s): M70.61 - Trochanteric bursitis, right hip Plan Patient is experiencing significant pain in her low back that is worse with bending, twisting or lifting. Patient did have limited range of motion of her lumbar spine with a positive Kemps test during today's visit. I did discuss with the patient that I do believe she would benefit from a lumbar RFA. We did discuss this however at this time she would like to wait. Patient did have more extreme point tenderness along her right bursa during today's visit. I did also review with her that I do believe she would benefit from injections in this location. Risk and benefits were discussed and she would like to proceed forward with this plan of care. Patient will be scheduled for a right greater trochanteric bursa injection under fluoroscopy. Patient has had chronic pain in her hips for longer than 6 months and has tried and failed conservative therapy including oral medications, heat and ice, topicals, at home stretching exercise for longer than 6 weeks. I did also go ahead and order x-ray imaging of her neck and lumbar spine as it has been longer than a year since having any updated imaging. We will follow-up with these in future. Patient has been instructed to contact the clinic with any concerns before the next appointment. Dr. Killian has reviewed this note and agrees with this plan of care. This note was dictated using voice recognition software and make contain errors or omissions. All injections are used with Lidocaine, Bupivacaine and dexamethasone. Occasionally urine drug screen is needed to verify patient's compliance with our office pain contract. This is ordered based off specific treatments related to chronic pain with the potential to abuse certain medications.
== END 2025-02-10 23:59 | disposition home or self-care (01) ==
PROVIDERS: PCP Emergency Medicine; Visit Provider Nurse Practitioner Family
DX: M47.816 Spondylosis without myelopathy or radiculopathy, lumbar region (principal); M51.369 Other intervertebral disc degeneration, lumbar region without mention of lumbar back pain or lower extremity pain; M54.2 Cervicalgia; M70.61 Trochanteric bursitis, right hip; Z73.89 Other problems related to life management difficulty
CPT/HCPCS: 72040; 72100; 99212; G0463

== ENCOUNTER 2025-03-07 14:31 | Day surgery (SDC) | payer MEDICARE, OTHER, SELFPAY ==
[2025-03-07 14:43] VITALS: BP 150/76; PULSE 71; RESP 16; TEMP 36.8; O2SAT 100; BMI 35.9
[2025-03-07] MEDS: DEXAMETHASONE 10MG/ML 1ML VIAL 10 MG (14:47)
[2025-03-07] MEDS: BUPIVACAINE 0.25% 10ML INJ 25 MG IJ (14:47)
[2025-03-07 14:48] VITALS: BP 150/76; PULSE 71; RESP 18; O2SAT 100
[2025-03-07 14:49] VITALS: BP 150/76; PULSE 71; RESP 18; O2SAT 100
--- NOTE | 2025-03-07 14:49 | P.PCN_ITS ---
Procedure Date: 03/07/25 Time: 15:00 Anesthesiologist:: Miguel Neal CRNA Complications:: None Pre-procedure Diagnosis:: Right trochanteric bursitis Post-procedure Diagnosis:: Same Indications for Procedure:: Patient is a pleasant 64-year-old female who comes our clinic today for right trochanteric bursa injection of cortisone local anesthetic. Patient describes right lateral hip pain as constant, dull, aching, sharp, stabbing. She is having difficulty lying on her right side due to the pain of the lateral hip. She rates her pain 7/10. Procedure Details:: Procedure: Right trochanteric bursa injection under fluoroscopy We then moved to the right trochanteric bursa.~ C-arm fluoroscopy was used to view the left greater trochanter.~ The skin and subcutaneous tissues overlying the right greater trochanter were anesthetized using lidocaine, 1.5% and a 25- gauge needle.~ After this, a 22-gauge spinal needle was inserted and advanced until it contacted the right greater trochanter.~ Dye was injected and good spread was seen throughout the right trochanteric bursa. After this, approximately 5 mL of bupivacaine, 0.25% and Depo-Medrol, 40 mg was incrementally injected into the right right trochanteric bursa.~ The patient tolerated the procedure well with no complications. Plan and Disposition:: Patient was discharged without incident.
[2025-03-07 14:55] VITALS: BP 154/83; PULSE 69; RESP 16; O2SAT 100
== END 2025-03-07 14:55 | disposition home or self-care (01) ==
PROVIDERS: PCP Emergency Medicine; Visit Provider Nurse Anesthetist, Certified Registered
DX: M70.61 Trochanteric bursitis, right hip (principal)
CPT/HCPCS: 20610; 77002; J1100

== ENCOUNTER 2025-03-22 10:07 | Outpatient (POV) | payer MEDICARE, OTHER, SELFPAY ==
--- OUTSIDE RECORDS SUMMARY | 2025-03-03 10:13 | XMS_ITS | Continuity of Care Document ---
Author Organization [facility] Phone Care Team Providers Care Cytogenetics Laboratory Manager Name Role Phone AUNDREA DONATO Primary Attending AUNDREA DONATO Admitting LEE MOYER Primary Care AUNDREA DONATO Unavailable ALLERGIES AND ADVERSE REACTIONS ALLERGIES AND ADVERSE REACTIONS Code System Allergy Substance Adverse Reaction Date Reaction (Severity) Comment Status Reported By Updated By [id number] RXNorm Morphine Adverse reaction to substance Not Specified active [id number] on October 17, 2024 5:58:01 PM [place] [id number] RXNorm Phenergan Adverse reaction to substance Not Specified active [id number] on October 17, 2024 5:58:01 PM [place] [id number] SNOMED CT NSAIDS Drug-induce d nausea and vomiting (Moderate) Shock active [id number] on October 17, 2024 5:58:00 PM [place] [id number] RXNorm Boniva Adverse reaction to substance Not Specified active [id number] on October 17, 2024 5:58:01 PM [place] FAMILY HISTORY RELATION: Father Status: Cause of : Unknown Age at : Unknown SNOMED-CT Diagnosis Age At Onset [id number] H/O: alcoholism RELATION: Mother Status: Cause of : Unknown Age at : Unknown SNOMED-CT Diagnosis Age At Onset Information not available RELATION: Sister Status: LIVING SNOMED-CT Diagnosis Age At Onset [id number] Anxiety [id number] Depression screening RESULTS Patient: ABDI ZULETA Date of : 1960 LABORATORY RESULTS Information is not available LABORATORY NARRATIVE RESULTS Information is not available RADIOLOGY RESULTS ORDER 100: MRI SPINE CERVICL WO (LOINC: 64524-2) ORDER DATE: March 01, 2025 11:37:00 AM [place] PERFORMING LAB: [place] [id number] [facility] MARY ANNE CLAROS [id number] Final Result Date: March 01 12:42:[address] [place] [address] Name: SONG PATTON Exam Date: 03/01/2025 : 1960 Age 64 years Gender: F Physician: AUNDREA DONATO Facility: [facility] Facility HSV: Outpatient Exam: MRI SPINE CERVICL WO MR CERVICAL SPINE WITHOUT IV CONTRAST, 03/01/2025 7:42 AM CDT INDICATION: back pain TECHNIQUE: Multiplanar, multisequence MR images were obtained through the cervical spine. Comparison is made to CTA neck of 12/24/2022. FINDINGS: Sensitivity of the exam is decreased by patient motion. Vertebral body height is maintained without evidence of fracture. Intervertebral disc space narrowing is present at C6-C7 with uncovertebral facet arthropathy and Modic type II endplate changes. Minimal Modic type I changes are noted in the superior endplate of C4. The craniocervical and cervicothoracic junctions are aligned. The C2-C3 and C3-C4 intervertebral discs are within normal limits. Articular facet arthropathy is present on the left at C3-C4 without neural foraminal stenosis. At C4-C5 and C5-C6 there are small disc bulges with mild spinal canal stenosis. At C6-C7, uncovertebral facet arthropathy causes bilateral neural foraminal stenosis. There is minimal deformation of the spinal cord posterior to C4-C5. No spinal cord edema or gliosis is visualized. The paraspinal soft tissues are within normal limits. IMPRESSION: 1. Uncovertebral facet arthropathy at C6-C7 causes bilateral neural foraminal stenosis. 2. Small disc bulges at C4-C5 and C5-C6 cause mild spinal canal stenosis. Electronically signed by: Salvatore Balderrama MD 03/01/2025 09:24 AM EDT Dictated By: Salvatore Balderrama Transcribed By: Transcribed On: 03/01/2025 8:42 AM Electronically signed by: Salvatore Balderrama 03/01/2025 Thank you for referring SONG PATTON to [facility]. Legally authenticated by GARRY CASTRO MD 2025-03-01 08:42:10 ORDER 200: MRI SPINE LUMBAR WO (LOINC: 61350-5) ORDER DATE: March 01, 2025 11:37:00 AM [facility] PERFORMING LAB: [address] [id number] Final Result Date: March 01 12:42:[address] [place] [address] Name: SONG PATTON Exam Date: 03/01/2025 : 1960 Age 64 years Gender: F Physician: AUNDREA DONATO Facility: [facility] Facility HSV: Outpatient Exam: MRI SPINE LUMBAR WO MR LUMBAR SPINE WITHOUT IV CONTRAST, 03/01/2025 7:42 AM CDT INDICATION: back pain TECHNIQUE: Multiplanar, multisequence MR images were obtained through the lumbar spine. Comparison is made to 12/30/2022. FINDINGS: There is maintenance of vertebral body height without evidence of fracture. Intervertebral disc space narrowing at T11-T12 is unchanged. The thoracolumbar and lumbosacral junctions are aligned. No bone marrow edema or pars interarticularis defect is identified. A generalized disc bulge and ligamentum flavum thickening at L4-L5 causes mild spinal canal and neural foraminal stenosis, similar to the previous exam. The other intervertebral discs are unremarkable. The spinal cord terminates posterior to L2. The paraspinal soft tissues are within normal limits. IMPRESSION: Mild spinal canal and neural foraminal stenosis at L4-L5, unchanged. Electronically signed by: Salvatore Balderrama MD 03/01/2025 09:27 AM EDT Dictated By: Salvatore Balderrama Transcribed By: Transcribed On: 03/01/2025 8:42 AM Electronically signed by: Salvatore Balderrama 03/01/2025 Thank you for referring SONG PATTON to [facility]. Legally authenticated by GARRY CASTRO MD 2025-03-01 08:42:42 PATHOLOGY NARRATIVE RESULTS Information is not available [...] Description Effective Dates Offered Cessation Comment UpdatedBy [id number] Historical Tobacco smoking status Never Smoked [id number] on October 17, 2024 6:00:21 PM [facility] SOCIAL HISTORY - Gender Sex: Female [...] available. ENCOUNTERS ENCOUNTER INFORMATION Reason for Visit M54.2 Admission March 01, 2025 11:24:[address] [id number] Discharge March 01, 2025 11:24:00 AM [facility] DIS CHARGED TO HOME OR SELF CARE ENCOUNTER DIAGNOSES Notes information is not fanny ilable. Code System Diagnosis Onset Date Diagnosis information is not available. ABSTRACT DIAGNOSES Code System Diagnosis Updated By M54.59 ICD10 OTHER LOW BACK PAIN [id number] on March 03, 2025 2:12:08 PM [facility] M54.2 ICD10 CERVICALGIA [id number] on March 03, 2025 2:12:08 PM [facility] M54.59 ICD10 OTHER LOW BACK PAIN [id number] on March 03, 2025 2:12:08 PM [facility] M54.2 ICD10 CERVICALGIA [id number] on March 03, 2025 2:12:08 PM [facility] CARE TEAM Care Cytogenetics Laboratory Manager Role AUNDREA DONATO Primary Attending AUNDREA DONATO Admitting LEE MOYER Primary Care AUNDREA DONATO Referring CARE TEAM CARE house painter helper Role on Team Status Start Date End Date Update d By JOÃO Lion MD PHY PCP normal February 23, 2025 6:47:25 PM [place] March 01, 2025 11:24:00 AM [place] [id number] on February 23, 2025 6:47:25 PM [facility] KINGA GUILLAUME MD Referring normal February 23, 2025 6:47:25 PM [facility] March 01, 2025 11:24:00 AM [facility] [id number] on February 23, 2025 6:47:25 PM [facility] KINGA GUILLAUME MD Attending normal February 23, 2025 6:47:25 PM [facility] March 01, 2025 11:24:00 AM [place] [id number] on February 23, 2025 6:47:25 PM [facility] KINGA GUILLAUME MD Admitting normal February 23, 2025 6:47:25 PM [facility] March 01, 2025 11:24:00 AM [facility] [id number] on February 23, 2025 6:47:25 PM [facility]
[2025-03-22 10:53] VITALS: BP 129/80; PULSE 77; RESP 18; O2SAT 96; BMI 35.9
--- NOTE | 2025-03-22 11:01 | EXP.PAIN.SOA ---
[facility] Disclaimer: The information contained in this section may have been updated after the patient was seen, as this information can be updated by other users. Medical History DDD (degenerative disc disease) Seasonal allergies HTN (hypertension) Diabetes GERD (gastroesophageal reflux disease) HLD (hyperlipidemia) Family History Other No significant family history Social History Smoking Status: Never smoker alcohol intake: never substance use type: denies use current occupational status: other Travel in the last 8 weeks?: None PM Subjective & Objective Subjective Subjective:: Patient is a pleasant 64-year-old female who presents today for follow-up of her right bursa injection on 03/07/2025. Today she rates her pain an 8 out of 10 however states this is more related to all across her low back. Patient states that she did get about 50% relief following these injections. Patient does state that her back pain is really bothering her and that any type of prolonged positioning such as sitting or certain movements really are aggravating. She does state the pain is interfering with her ability to perform activities of daily living such as cooking and cleaning. Patient is interested in additional injection therapy as this has been very beneficial in the past. Patient does also state that she has had updated imaging from the neurosurgeon regarding her neck and that they were recommending injections from our office. Patient denies any other changes. Her Joaquim has been reviewed and is appropriate. Review of Systems: General: No recent weight changes, no fever, no sleep disturbances Respiratory: No cough, no shortness of air, no recurring pulmonary infections Cardiovascular/peripheral vascular: No chest pain, no palpitations, no edema, no shortness of breath Gastrointestinal: No new onset incontinence, normal bowel movements reported Genitourinary: No new onset incontinence Musculoskeletal: Low back pain, neck pain Psychiatric: [Normal mood/affect] Neurological: [Denies weakness in extremities], [denies balance issues] Pain at rest (0-10 scale): 8 Objective Objective:: Physical Exam: General: Alert and oriented x3, no acute distress, pleasant and cooperative Lungs: Respirations even and unlabored, symmetrical chest expansion Eyes: PERRL Musculoskeletal: Flexion and extension of lumbar [spine] somewhat guarded secondary to pain, [antalgic gait noted] point tenderness along bilateral SIs with positive bilateral Clovis's, Gretel's, Gaenslen's, compression and distraction exam Neurological: Speech clear, no gross sensory deficit Has patient had previous pain injection?: Yes Percent improvement in pain since last injection: 50% Conservative treatment options previously tried: Home exercise plan Length of treatment: Longer than 12 weeks Meds Home Medications and Allergies Home Medications ?Medication ?Instructions ?Recorded ?Confirmed ?Type albuterol sulfate 90 mcg/actuation 2 puff inhalation BIDP PRN sob 02/20/23 03/22/25 History aerosol inhaler (Ventolin HFA) aspirin 81 mg tablet,delayed 81 mg PO DAILY heart health 02/20/23 03/22/25 History release atorvastatin 20 mg tablet 20 mg PO HS Cholesterol 02/20/23 03/22/25 History cholecalciferol (vitamin D3) 50 2,000 unit PO DAILY Supplement 02/20/23 03/22/25 History mcg (2,000 unit) tablet colestipol 1 gram tablet 1 g PO DAILY . 02/20/23 03/22/25 History esomeprazole magnesium 40 mg 40 mg PO DAILY GERD 02/20/23 03/22/25 History capsule,delayed release famotidine 40 mg tablet 40 mg PO DAILY GERD 02/20/23 03/22/25 History metformin 500 mg tablet 500 mg PO DAILY Diabetes 02/20/23 03/22/25 History montelukast 10 mg tablet 10 mg PO HS allergies 02/20/23 03/22/25 History omega-3 fatty acids-fish oil 300 1,000 cap PO DAILY Supplement 02/20/23 03/22/25 History mg-1,000 mg capsule propranolol 10 mg tablet 10 mg PO BID Heartburn 02/20/23 03/22/25 History tizanidine 4 mg tablet (Zanaflex) 4 mg PO HS . #30 tabs 03/23/23 03/22/25 Rx methocarbamol 750 mg tablet 750 mg PO BID . 05/05/23 03/22/25 History meloxicam 7.5 mg tablet 7.5 mg PO DAILY . #30 tabs 06/15/23 03/22/25 Rx baclofen 20 mg tablet 20 mg PO HS . #30 tabs 07/08/23 03/22/25 Rx celecoxib 100 mg capsule (Celebrex) 100 mg PO DAILY #14 caps 08/06/23 03/22/25 Rx baclofen 10 mg tablet 10 mg PO TID #42 tabs 10/26/24 03/22/25 Rx methocarbamol 500 mg tablet 500 mg PO BID #28 tabs 11/23/24 03/22/25 Rx New Prescriptions to Start Prescriptions: Allergies Allergy/AdvReac Type Severity Reaction Status Date / Time aspirin AdvReac Verified 10/30/23 11:56 denosumab AdvReac Verified 10/30/23 11:56 morphine AdvReac Verified 10/30/23 11:56 promethazine AdvReac Verified 10/30/23 11:56 Assessment and Plan *Assessment and plan (1) Bilateral sacroiliitis: Status: Acute Category: Medical Code(s): M46.1 - Sacroiliitis, not elsewhere classified Plan Patient is experiencing worsening pain along the low back and bilateral hips. They did have limited range of motion of the lumbar spine along with point tenderness along bilateral SI joints and a positive bilateral Clovis's, Gretel's, Gaenslen's, compression and distraction exam. I did discuss with the patient that I do believe they would benefit from bilateral SI injections. Risk and benefits were discussed with the patient and they would like to proceed forward with this option. Patient has tried and failed conservative therapy. Patient has been actively doing conservative treatment including oral medication, heat and ice, topicals, at home exercising and stretching for longer than 12 weeks. Patient is having to adjust their activity based off the increased pain resulting in activity modification. I do believe the patient would benefit from SI injection. Patient has had longstanding chronic sacroiliitis for longer than 6 months. She did have her last injection in November that did provide 90% improvement and lasted longer than 3 months. This will be a therapeutic injection with less than 1.5 mL of solution to be injected. In future she still may be a possible candidate of SI fusion. We will follow-up after this injection. Patient will be scheduled for bilateral SI injections under fluoroscopy. We did also make copies of her cervical imaging and we will discuss future injection therapy of her neck at upcoming appointments. Patient has been instructed to contact the clinic with any concerns before the next appointment. Dr. Killian has reviewed this note and agrees with this plan of care. This note was dictated using voice recognition software and make contain errors or omissions. All injections are used with Lidocaine or Bupivacaine and dexamethasone unless diagnostic in which no steroids were injected.
== END 2025-03-22 23:59 | disposition home or self-care (01) ==
LOC: SC.PAIN 10:08
PROVIDERS: PCP Emergency Medicine; Visit Provider Nurse Practitioner Family
DX: M46.1 Sacroiliitis, not elsewhere classified (principal)
CPT/HCPCS: 99212; G0463

== ENCOUNTER 2025-04-11 09:24 | Day surgery (SDC) | payer MEDICARE, OTHER, SELFPAY ==
[2025-04-11 09:42] VITALS: BP 129/80; PULSE 82; RESP 16; O2SAT 98; BMI 33.6
--- NOTE | 2025-04-11 10:03 | P.PCN_ITS ---
Procedure Date: 04/11/25 Time: 10:00 Anesthesiologist:: Miguel Neal CRNA Complications:: None Pre-procedure Diagnosis:: Bilateral sacroiliitis Post-procedure Diagnosis:: Same Indications for Procedure:: Patient is a very pleasant 64-year-old female who comes our clinic today for bilateral sacroiliac joint of local anesthetic. Patient describes low lumbar back pain off the midline bilaterally. Bilateral posterior hip pain. Difficulty transitioning from sitting to standing. Difficulty with ambulation due to bilateral posterior hip pain. She rates her pain 7/10. Procedure Details:: Procedure: Bilateral sacroiliac joint injections under fluoroscopy Informed consent was obtained and the risks and benefits of the procedure were explained to the patient.~ The patient was taken to the procedure room and noninvasive monitors were placed including a noninvasive blood pressure cuff and pulse oximeter.~ The patient was placed prone on the procedure table. Both hips were cleansed using Betadine as a cleansing solution. C-arm fluoroscopy was used to view the right sacroiliac joint.~ The skin and subcutaneous tissues were anesthetized using lidocaine 1.5% and a 25-gauge needle.~ After this, a 22-gauge spinal needle was inserted under fluoroscopic guidance into the inferior aspect of the right sacroiliac joint.~ Omnipaque dye was injected and good spread was seen throughout the joint.~ After this, approximately 5 mL of bupivacaine, 0.25% and Depo-Medrol, 40 mg was incrementally injected into the right sacroiliac joint. We then moved to the left sacroiliac joint.~ The skin and subcutaneous tissues were anesthetized using lidocaine 1.5% and a 25-gauge needle.~ After this, a 22- gauge spinal needle was inserted under fluoroscopic guidance into the inferior aspect of the left sacroiliac joint.~ Omnipaque dye was injected and good spread was seen throughout the joint. After this, approximately 5 mL of bupivacaine, 0.25% and Depo-Medrol, 40 mg was incrementally injected into the left sacroiliac joint.~ The patient tolerated the procedure well with no complications. The patient was observed in the Pain Clinic and then was discharged home neurologically intact. Plan and Disposition:: Patient was discharged without incident.
[2025-04-11] MEDS: BUPIVACAINE 0.25% 10ML INJ 25 MG IJ (10:05)
[2025-04-11] MEDS: LIDOCAINE 1% 5ML PF VIAL 5 ML (10:05)
[2025-04-11] MEDS: DEXAMETHASONE 10MG/ML 1ML VIAL 10 MG (10:05)
[2025-04-11 10:06] VITALS: BP 172/67; PULSE 85; RESP 18; O2SAT 99
[2025-04-11 10:07] VITALS: BP 172/67; PULSE 85; RESP 18; O2SAT 99
[2025-04-11 10:09] VITALS: BP 127/79; PULSE 73; RESP 18; O2SAT 100
== END 2025-04-11 10:09 | disposition home or self-care (01) ==
PROVIDERS: PCP Emergency Medicine; Visit Provider Nurse Anesthetist, Certified Registered
DX: M46.1 Sacroiliitis, not elsewhere classified (principal); E11.9 Type 2 diabetes mellitus without complications; K21.9 Gastro-esophageal reflux disease without esophagitis; E78.5 Hyperlipidemia, unspecified; I10 Essential (primary) hypertension; Z88.6 Allergy status to analgesic agent; Z88.5 Allergy status to narcotic agent; Z88.8 Allergy status to other drugs, medicaments and biological substances; Z79.84 Long term (current) use of oral hypoglycemic drugs; Z79.82 Long term (current) use of aspirin; Z79.899 Other long term (current) drug therapy
CPT/HCPCS: 27096; J0665; J1100; J2003

== ENCOUNTER 2025-04-27 14:43 | Outpatient (POV) | payer MEDICARE, OTHER, SELFPAY ==
--- OUTSIDE RECORDS SUMMARY | 2025-04-27 14:46 | XMS_ITS | Encounter Summary ---
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 She was seen by D with complaints of exertional chest pressure. The pain radiates into the left arm. Associated symptoms include dyspnea and fatigue. Sh e also expericed intermittent tachypalpitations, often at night. Sinus tachycardia documeted by Holter. She underwent a stress echo that was abnormal suggesting apical septal hypokinesis, EF 55-60%. She has been scheduled for elective cardiac cath. Review of Systems Constitutional: Negative except as documented in history of present illness. Eye: Negative except as documented in history of present illness. Ear/Nose/Mouth/Throat: Negative except as documented in history of present illness. Respiratory: Negative except as documented in history of present illness. Cardiovascular: Negative except as documented in history of present illness. Gastrointestinal: Negative except as documented in history of present illness. Genitourinary: Negative except as documented in history of present illness. Hematology/Lymphatics: Negative except as documented in history of present illness. Endocrine: Negative except as documented in history of present illness. Immunologic: Negative except as documented in history of present illness. Musculoskeletal: Negative except as documented in history of present illness. Integumentary: Negative except as documented in history of present illness. Neurologic: Negative except as documented in history of present illness. Psychiatric: Negative except as documented in history of present illness. Health Status Allergies (3) Active Reaction Contrast Dye None Documented morphine None Documented Phenergan None Documented Home Medications (11) Active Align , Oral, Daily aspirin 81 mg oral delayed release tablet 81 mg = 1 Tab, Oral, Daily atorvastatin 10 mg oral tablet , Oral, Daily dicyclomine 20 mg oral tablet , Oral, BID diphenhydrAMINE 50 mg, Oral, 1-Time fluticasone propionate 55 mcg/inh inhalation powder , PRN, Inhalation, Q12H montelukast 5 mg oral tablet, chewable , Chew, Daily NexIUM 40 mg oral delayed release capsule , Oral, Daily Pepcid 40 mg oral tablet , Oral, 1-Time predniSONE 60 mg, Oral, 1-Time ProAir HFA 90 mcg/inh inhalation aerosol , PRN, Inhalation, QID Allergies: Allergic Reactions (Selected) Severity Not Documented Contrast Dye- No reactions were documented. Morphine- No reactions were documented. Phenergan- No reactions were documented. Current medications: (Selected) Inpatient Medications Ordered Normal Saline Flush: 10 mL, IV Push, Q12H Normal Saline Flush: 10 mL, IV Push, See Comment, PRN: IV Use Sodium Chloride 0.9% intravenous solution 500 mL: Titrate, IntraVENous Documented Medications Documented Align: mg, Oral, Daily, 0 Refill(s) NexIUM 40 mg oral delayed release capsule: Cap, Oral, Daily, 0 Refill(s) Pepcid 40 mg oral tablet: Tab, Oral, 1-Time, 0 Refill(s) ProAir HFA 90 mcg/inh inhalation aerosol: Puff, Inhalation, QID, PRN: Congestion, 0 Refill(s) aspirin 81 mg oral delayed release tablet: 1 Tab, Oral, Daily, 30 Tab, 0 Refill(s) atorvastatin 10 mg oral tablet: Tab, Oral, Daily, 0 Refill(s) dicyclomine 20 mg oral tablet: Tab, Oral, BID, 0 Refill(s) diphenhydrAMINE: 50 mg, Oral, 1-Time, 0 Refill(s) fluticasone propionate 55 mcg/inh inhalation powder: Inhalation, Q12H, PRN: Congestion, 0 Refill(s) montelukast 5 mg oral tablet, chewable: Tab, Chew, Daily, 0 Refill(s) predniSONE: 60 mg, Oral, 1-Time, 0 Refill(s) Problem list: All Problems At risk for sleep apnea / IMO [id number] / Confirmed Chest pain / SNOMED CT 78203865 / Confirmed Fibromyalgia / SNOMED CT 107682061 / Confirmed Acute low back pain due to trauma / SNOMED CT 368597771 / Confirmed H/O mitral valve disorder / SNOMED CT 147643425 / Confirmed History of tricuspid valve disorder / SNOMED CT 551237135 / Confirmed Gastroparesis / SNOMED CT 711194954 / Confirmed Anxiety / SNOMED CT 93390529 / Confirmed Breath shortness / SNOMED CT 008698242 / Confirmed Pain in both feet / SNOMED CT 343122778 / Confirmed Adult idiopathic generalized osteoporosis / SNOMED CT 629858525 / Confirmed Histories No education data available. Social & Psychosocial Habits No Data Available Past Medical History: Active HTN - Hypertension ([id number]) Family History: Entire family history is negative. Procedure history: deviated nasal septum repair. hysterectomy. dnc. bipsy of right breast. colonoscopy. endoscopy. shlomo. surgery due to complications of shlomo. cyst removal from hands and arm. stretching of throat x 2. tendonitis surgery. Physical Examination General: Alert and oriented. Eye: Pupils are equal, round and reactive to light. HENT: Normocephalic. Neck: Supple, No carotid bruit, No jugular venous distention. Respiratory: Lungs are clear to auscultation, Respirations are non-labored, Breath sounds are equal. Cardiovascular: Normal rate, Regular rhythm, No murmur, No gallop, Good pulses equal in all extremities. Gastrointestinal: Soft, Non-tender, Non-distended, Normal bowel sounds. Musculoskeletal: Normal range of motion, Normal strength. Integumentary: Warm, Dry, [place]. Neurologic: Alert, Oriented. Psychiatric: Cooperative. Review / Management No qualifying data available Cardiac Markers (Current Encounter/Past 24 Hours) No Cardiac Marker Results Found (Past 24 Hours) Blood Gases (Current Encounter/Past 24 Hours) No Blood Gas Results Found (Past 24 Hours) No Radiology Results Found Results review: Labs (Last four charted values) Plt 311 (DEC 17) . Impression and Plan IMPRESSION: * Anginal equivalent chest pain and dyspnea with abnormal stress echo suggesting apical septal hypokinesis, EF 55-60% * Tachy-palpitations. Sinus tachycardia by Holter. * HLD * DM type 2 PLAN; Cardiac cath with possible catheter based intervention.Risks, benefits, and alternative therapy discussed with the patient in detail. She has given verbal and written consent. Add Coreg 3.125 mg BID and Magnesium Oxide 400 mg daily. Other medication adjustments pending cath. documented in this encounter Plan of Treatment Not on file documented as of this encounter Visit Diagnoses Not on filedocumented in this encounter
--- OUTSIDE RECORDS SUMMARY | 2025-04-27 14:46 | XMS_ITS | Encounter Summary ---
Author Organization [employer] ([place], [place], [place], [place]) Address [address] [place] [address] Care Team Providers Care Head Filter Press Tender Name Role Phone Unavailable Primary Care Provider Unavailabl e Encounter Details Date Type Department Care Team (Late st Contact Info) Description 12/17/2018 Transcribed Document [facility] [place] [facility] [place] [address] ProviderCathi MD [address] [place] [id number] Social History Tobacco Use Types Packs/Day Years Used Date Smoking Tobacco: Never Assessed Comments Unknown Sex and Gender Information Value Date Recorded Sex Assigned at Not on file Legal Sex Female 4:43 PM CDT Gender Identity Not on file Sexual Orientation Not on file documented as of this encounter Miscellaneous Notes * Cerner Conversion Note - Cathi ProviderMD - 12/17/2018 5:31 PM [employer] [address] [place] [address] Patient Copy Patient Information: Name: TASNEEM BECERRA [facility] Current Date: 12/17/2018 17:31:08 : 1960 Patient Address: [place] [address] Patient Attending Physician: YAO HOLCOMB MD-CAR Primary Care Provider: ORION NASCIMENTO PA-TAD Primary Care Provider Discharge Diagnosis: Weight on Admission: 173 lb, 0 oz Comment: Follow-up Instructions: With: Address: When: JOS DONATO [address], [place] [address] Business (1) Within 1 month Comments: Follow-up as instructed Discharge Instructions: Diet after Discharge: Resume usual diet as tolerated Activity after Discharge: Rest and relax today, No strenuous activities Driving after Discharge: Other: May NOT drive for 24 hours Showering/Bathing:Other: May remove dressng and shower after 24 hours. No tub baths, soaking for 5 days. Immunizations Documented During Stay: No Immunizations Found Heart Failure Discharge Instructions (if any): Stroke Related Discharge Instructions (if any): Warfarin Related Discharge Instructions (if any): Final Medication List: Other Medications albuterol (ProAir HFA 90 mcg/inh inhalation aerosol) Inhalation Four Times A Day as needed Congestion. aspirin (aspirin 81 mg oral delayed release tablet) 1 Tablet(s) Oral Every Day. atorvastatin (atorvastatin 10 mg oral tablet) Oral Every Day. bifidobacterium infantis (Align) Oral Every Day. carvedilol (carvedilol 3.125 mg oral tablet) 1 Tablet(s) Oral Two Times A Day. Patient Instructions: New medication. Prescription sent to [facility] dicyclomine (dicyclomine 20 mg oral tablet) Oral Two Times A Day. esomeprazole (NexIUM 40 mg oral delayed release capsule) Oral Every Day. fluticasone (fluticasone propionate 55 mcg/inh inhalation powder) Inhalation every 12 hours as needed Congestion. magnesium oxide (magnesium oxide 400 mg (241.3 mg elemental magnesium) oral tablet) 1 Tablet(s) Oral Every Day. Patient Instructions: New medicaiton. Prescription sent to [facility] montelukast (montelukast 5 mg oral tablet, chewable) Chew Every Day. predniSONE 60 Milligram(s) Oral One Time Order. Patient Allergies: Phenergan; Contrast Dye; morphine Medication Instructions: Take your medications faithfully. Do NOT skip medication. Do NOT stop taking medications without the direction of a physician. Carry a list of your medications with you at all times, and take this medication list with you to your first follow up visit. Report any side effects. Avoid herbal remedies unless discussed with your physician. As part of your treatment plan, your physician may have prescribed a limited course of a controlled substance. This medication may be given to help people with moderate or severe pain or for other medical conditions, but there are risks involved with treatment. Common side effects may include nausea, constipation, drowsiness, sweating, itching, dry mouth, and rash. More serious side effects may include cognitive and motor impairment, like problems with thinking, concentrating, alertness, and movement (e.g. slowed reflexes), and driving and operating heavy machinery can be dangerous. It is important for you to talk to your physician if you have these side effects or questions. These controlled substances can produce physical dependence and be habit-forming if taken for an extended period of time, which means that the body has gotten used to them and may experience withdrawal symptoms if they are abruptly stopped. Withdrawal symptoms can include runny nose, sweating, goose bumps, diarrhea, abdominal cramping, rapid heartbeat, difficulty sleeping, and nervousness. Patient education materials: Moderate Conscious Sedation, Adult, Care After These instructions provide you with information about caring for yourself after your procedure. Your health care provider may also give you more specific instructions. Your treatment has been planned according to current medical practices, but problems sometimes occur. Call your health care provider if you have any problems or questions after your procedure. What can I expect after the procedure? After your procedure, it is common: ??? To feel sleepy for several hours. ??? To feel clumsy and have poor balance for several hours. ??? To have poor judgment for several hours. ??? To vomit if you eat too soon. Follow these instructions at home: For at least 24 hours after the procedure: ??? Do not: ? Participate in activities where you could fall or become injured. ? Drive. ? Use heavy machinery. ? Drink alcohol. ? Take sleeping pills or medicines that cause drowsiness. ? Make important decisions or sign legal documents. ? Take care of children on your own. ??? Rest. Eating and drinking ??? Follow the diet recommended by your health care provider. ??? If you vomit: ? Drink water, juice, or soup when you can drink without vomiting. ? Make sure you have little or no nausea before eating solid foods. General instructions ??? Have a responsible adult stay with you until you are awake and alert. ??? Take lwai-upq-uditamt and prescription medicines only as told by your health care provider. ??? If you smoke, do not smoke without supervision. ??? Keep all follow-up visits as told by your health care provider. This is important. Contact a health care provider if: ??? You keep feeling nauseous or you keep vomiting. ??? You feel light-headed. ??? You develop a rash. ??? You have a fever. Get help right away if: ??? You have trouble breathing. This information is not intended to replace advice given to you by your health care provider. Make sure you discuss any questions you have with your health care provider. Document Released: 07/26/2014 Document Revised: 03/09/2017 Document Reviewed: 01/24/2017 [employer] Interactive Patient Education ? 2017 [employer] Radial Site Care Introduction Refer to this sheet in the next few weeks. These instructions provide you with information about caring for yourself after your procedure. Your health care provider may also give you more specific instructions. Your treatment has been planned according to current medical practices, but problems sometimes occur. Call your health care provider if you have any problems or questions after your procedure. What can I expect after the procedure? After your procedure, it is typical to have the following: ??? Bruising at the radial site that usually fades within 1?2 weeks. ??? Blood collecting in the tissue (hematoma) that may be painful to the touch. It should usually decrease in size and tenderness within 1?2 weeks. Follow these instructions at home: ??? Take medicines only as directed by your health care provider. ??? You may shower 24?48 hours after the procedure or as directed by your health care provider. Remove the bandage (dressing) and gently wash the site with plain soap and water. Pat the area dry with a clean towel. Do not rub the site, because this may cause bleeding. ??? Do nottake baths, swim, or use a hot tub until your health care provider approves. ??? Check your insertion site every day for redness, swelling, or drainage. ??? Do notapply powder or lotion to the site. ??? Do notflex or bend the affected arm for 24 hours or as directed by your health care provider. ??? Do notpush or pull heavy objects with the affected arm for 24 hours or as directed by your health care provider. ??? Do notlift over 10 lb (4.5 kg) for 5 days after your procedure or as directed by your health care provider. ??? Ask your health care provider when it is okay to:? Return to work or school. ? Resume usual physical activities or sports. ? Resume sexual activity. ??? Do notdrive home if you are discharged the same day as the procedure. Have someone else drive you. ??? You may drive 24 hours after the procedure unless otherwise instructed by your health care provider. ??? Do notoperate machinery or power tools for 24 hours after the procedure. ??? If your procedure was done as an outpatient procedure, which means that you went home the same day as your procedure, a responsible adult should be with you for the first 24 hours after you arrive home. ??? Keep all follow-up visits as directed by your health care provider. This is important. Contact a health care provider if: ??? You have a fever. ??? You have chills. ??? You have increased bleeding from the radial site. Hold pressure on the site. Get help right away if: ??? You have unusual pain at the radial site. ??? You have redness, warmth, or swelling at the radial site. ??? You have drainage (other than a small amount of blood on the dressing) from the radial site. ??? The radial site is bleeding, and the bleeding does not stop after 30 minutes of holding steady pressure on the site. ??? Your arm or hand becomes pale, cool, tingly, or numb. This information is not intended to replace advice given to you by your health care provider. Make sure you discuss any questions you have with your health care provider. Document Released: 11/07/2011 Document Revised: 03/12/2017 Document Reviewed: 04/23/2015 ? 2017 Elsevier Transradial Angiogram Transradial angiogram is an imaging test. This test uses X-ray images and colored dye that is made up of an iodine solution (contrast dye). This test is done to check for any abnormalities in the vessels that might affect blood flow, such as: ??? A blocked blood vessel. ??? A narrowed blood vessel. ??? A blood clot. ??? Abnormal, inherited blood vessel connections. During this test, a small, flexible tube (catheter) is inserted into an artery in the wrist (radial artery). The catheter is moved from the radial artery into other blood vessels in the body that need to be examined. Contrast dye is used to make blood vessels visible on X-ray images that are taken during the procedure. Tell a health care provider about: ??? Any allergies you have. ??? All medicines you are taking, including vitamins, herbs, eye drops, creams, and latb-gln-pdgpzbp medicines. ??? Any problems you or family members have had with anesthetic medicines. ??? Any blood disorders you have. ??? Any surgeries you have had. ??? Any medical conditions you have. ??? Whether you are or may be . What are the risks? Generally, this is a safe procedure. However, problems may occur, including: ??? Infection. ??? Bleeding. ??? Allergic reactions to medicines or dyes. ??? Damage to other structures or organs, such as the blood vessels, lungs, or heart. ??? Blood clots. ??? Blood flow through the radial artery stopping or slowing down. This is rare. What happens before the procedure? Ask your health care provider about: ? Changing or stopping your regular medicines. This is especially important if you are taking diabetes medicines or blood thinners. ? Taking medicines such as aspirin and ibuprofen. These medicines can thin your blood. Do not take these medicines before your procedure if your health care provider instructs you not to. ??? Follow instructions from your health care provider about eating or drinking restrictions. ??? Do notuse tobacco products for at least 24 hours before your procedure or as told by your health care provider. This includes cigarettes, chewing tobacco, or e-cigarettes. ??? Ask your health care provider how your surgical site will be marked or identified. ??? You may be given antibiotic medicine to help prevent infection. ??? You may have a physical exam. ??? You may have tests, including: ? Blood tests. ? X-rays. ??? Plan to have someone take you home after the procedure. ??? If you will be going home right after the procedure, plan to have someone with you for 24 hours. What happens during the procedure? To reduce your risk of infection: ? Your health care team will wash or sanitize their hands. ? Your skin will be washed with soap. ??? An IV tube will be inserted into one of your veins. ??? You will be given the following: ? A medicine to help you relax (sedative). ? A medicine that is injected to numb the area near the radial artery in your wrist (local anesthetic). ??? A needle will be inserted into your radial artery in your wrist. ??? A catheter will be inserted into your radial artery. The needle helps guide the catheter into your radial artery. ??? The catheter will be moved through your body to the desired blood vessel. An X-ray machine (fluoroscope) will help your health care provider bring the catheter to the correct place in your body. ??? Contrast dye will be injected into the catheter and will travel to the blood vessel that is being examined. ??? X-ray images will be taken of how the dye flows through your blood vessel. While the images are being taken, you may be given instructions on breathing, swallowing, moving, or talking. ??? The catheter and needle will be removed from your body. ??? A pressure (compression) wrap will be applied to your wrist to stop bleeding. The procedure may vary among health care providers and hospitals. What happens after the procedure? You will need to keep your wrist still for as long as told by your health care provider. ??? The pressure applied to your wrist will be gradually decreased until the compression wrap is removed. ??? You may have soreness and bruising in your wrist. This is normal. This should get better within about 1 week. ??? Your blood pressure, heart rate, breathing rate, and blood oxygen level will be monitored often until the medicines you were given have worn off. ??? You may continue to receive fluids and medicines through an IV tube. ??? Do notdrive for 24 hours if you received a sedative. ??? You may have to wear compression stockings. These stockings help to prevent blood clots and reduce swelling in your legs. This information is not intended to replace advice given to you by your health care provider. Make sure you discuss any questions you have with your health care provider. Document Released: 06/29/2013 Document Revised: 06/07/2017 Document Reviewed: 09/08/2016 Elsevier Interactive Patient Education ? 2017 Elsevier Inc. CIGARETTE SMOKING: The facts are clear, cigarette smoking will shorten your life. Smoking can cause many illnesses along the way. As a healthcare provider, we recommend that you stop smoking. Assistance with quitting is available by contacting 8-486-EZOD-NOW. This is a free resource providing counseling, support, and referral. Or you may contact your personal physician. 4 WAYS TO GET AHEAD OF SEPSIS SEPSIS is a MEDICAL EMERGENCY. Time matters! Infections put you and your family at risk for a life-threatening condition called sepsis. Sepsis is the body???s extreme response to an infection. It is life-threatening, and without timely treatment, sepsis can rapidly lead to tissue damage, organ failure, and . Sepsis happens when an infection you already have???in your skin, lungs, urinary tract or somewhere else???triggers a chain reaction throughout your body. 1 PREVENT INFECTIONS Take good care of chronic conditions. Talk to your doctor about getting the recommended vaccines. 2 PRACTICE GOOD HYGIENE Wash your hands frequently. Keep cuts or open sores clean and covered until they are healed. 3 KNOW THE SYMPTOMS Confusion or disorientation Shortness of breath High heart rate Fever, shivering, or feeling very cold Extreme pain or discomfort Clammy or sweaty skin 4 ACT FAST Get medical care IMMEDIATELY if you suspect sepsis or if you have an infection that???s not getting better or is getting worse. To learn more about sepsis and how to prevent infections, visit www.cdc.gov/sepsis. STROKE is an EMERGENCY Every Min[employer] Counts ACT F.A.S.T! FACE ?? Facial droop ?? Uneven smile ARM ?? Arm numbness ?? Arm weakness SPEECH ?? Slurred speech ?? Difficulty speaking or understanding TIME ?? Call 911 and get to the hospital immediately Have the ambulance go to the nearest stroke center. STROKE Risk Factors High blood pressure High cholesterol Heart Disease Diabetes Smoking Heavy alcohol use Physical inactivity and obesity Atrial Fibrillation (irregular heartbeat) Family history of stroke Reminder: Be sure to sign up for the [employer] patient portal, which gives you 11/05 access to your medical information ??? including these discharge instructions ??? using your computer, smartphone, or tablet. Just go to [employer] to get started. Questions? Call . [facility] would like to thank you for allowing us to assist you with your healthcare needs. ABDI Monet TERESA MIT, (or insurance service representative) have received the above patient education materials/instructions and have verbalized understanding: Patient Signature _ Date/Time Patient Cargo Operations Agent Signature (if needed) Date/Time Clinician/Hospital Cargo Operations Agent Signature (if needed) Date/Time documented in this encounter Plan of Treatment Not on file documented as of this encounter Visit Diagnoses Not on filedocumented in this encounter
--- OUTSIDE RECORDS SUMMARY | 2025-04-27 14:46 | XMS_ITS | Encounter Summary ---
Author Organization [employer] ([place], [place], [place], [place]) Address [address] [place] [address] Care Team Providers Care Tumbler Drier Operator Name Role Phone Unavailable Primary Care Provider Unavailabl e Encounter Details Date Type Department Care Team (Late st Contact Info) Description 12/17/2018 Transcribed Document [facility] [place] [facility] [place] [address] ProviderCathi MD [address] [place] [phone] Social History Tobacco Use Types Packs/Day Years Used Date Smoking Tobacco: Never Assessed Comments Unknown Sex and Gender Information Value Date Recorded Sex Assigned at Not on file Legal Sex Female 4:43 PM CDT Gender Identity Not on file Sexual Orientation Not on file documented as of this encounter Miscellaneous Notes * Cerner Conversion Note - Historical ProviderMD - 12/17/2018 2:49 PM MEDIA STRATEGIST DATE OF PROCEDURE: 12/17/2018 LEFT HEART CATH REPORT INDICATION: Chest pain, anterior apical hypokinesia by exercise stress echo. REFERRING PHYSICIANS: 1. Dr. Aliya Bender 2. Aliya Cedeno PA-C PROCEDURE: Standard left heart catheterization technique. DESCRIPTION OF PROCEDURE: A 6-Latvian sheath placed into the right radial artery. 5 mg verapamil and 3000 units of heparin were administered via the radial artery sheath. Josue catheter was used for selective angiography of the right coronary artery and CLS 3 guide catheter was used for selective angiography of the left coronary artery system. Josue catheter was also used to obtain pressure in the left ventricle. Following the diagnostic catheterization, the radial artery sheath was removed and the access site successfully compressed using a TR band. No complications. 5 mg verapamil and 3000 units of heparin were administered via the radial artery sheath. HEMODYNAMICS: Left ventricle 130/10 mmHg, aorta 130/70 mmHg. DIAGNOSES: 1. Mild coronary artery atherosclerosis. 2. Normal left ventricular filling pressure without gradient across the aortic valve. CORONARY ANATOMY: 1. Left main trunk: Angiographically normal. 2. LAD: Large caliber vessel which gives rise to a moderate caliber first diagonal branch and additional tiny diagonal branches before extending beyond the apex. Luminal irregularities noted in the LAD diagonal branch. 3. Circumflex artery: Moderate caliber vessel which gives rise to a moderate caliber bifurcating high lateral branch and small caliber bifurcating posterolateral branch. Luminal irregularities present in the circumflex artery. 4. Right coronary artery: Dominant vessel. Large caliber vessel which gives rise to a small caliber posterior descending artery. Luminal irregularities present in the right coronary. 5. Left ventricle: Normal left ventricular filling pressure without gradient across the aortic valve. IMPRESSION: Angiographically, the patient has mild coronary artery atherosclerosis. There is no indication for revascularization. Risk factor modification medical management is recommended. Grover Beltran M.D. Dict: 12/17/2018 14:49:28 Trans: 12/17/2018 19:51:11 Processed: 12/20/2018 11:38:51 [place] CC1: Grover Beltran M.D. CC2: Aliya Cedeno PA-C CC3: Dr. Aliya Bender documented in this encounter Plan of Treatment Not on file documented as of this encounter Visit Diagnoses Not on filedocumented in this encounter
--- OUTSIDE RECORDS SUMMARY | 2025-04-27 14:47 | XMS_ITS | Clinical Summary ---
Author Organization [employer] ([place], [place], [place], [place]) Address [address] [place] [address] Care Team Providers Care Stogie Packer Name Role Phone Unavailable Primary Care Provider Unavailabl e Social History Tobacco Use Types Packs/Day Years Used Date Smoking Tobacco: Never Assessed Comments Unknown Sex and Gender Information Value Date Recorded Sex Assigned at Not on file Legal Sex Female 4:43 PM CDT Gender Identity Not on file Sexual Orientation Not on file Plan of Treatment Not on file
--- OUTSIDE RECORDS SUMMARY | 2025-04-27 14:47 | XMS_ITS | Encounter Summary ---
Author Organization [employer] ([place], [place], [place], [place]) Address [address] [place] [address] Care Team Providers Care Educational Guidance Counselor Name Role Phone Unavailable Primary Care Provider Unavailabl e Encounter Details Date Type Department Care Team (Late st Contact Info) Description 12/17/2018 Transcribed Document [facility] [place] [address] Cathi Arroyo MD [address] [place] [id number] Social History Tobacco Use Types Packs/Day Years Used Date Smoking Tobacco: Never Assessed Comments Unknown Sex and Gender Information Value Date Recorded Sex Assigned at Not on file Legal Sex Female 4:43 PM CDT Gender Identity Not on file Sexual Orientation Not on file documented as of this encounter Miscellaneous Notes * Cerner Conversion Note - Cathi rAroyo MD - 12/17/2018 5:31 PM BALLAST INSPECTOR Patient Education Materials Follows: Moderate Conscious Sedation, Adult, Care After These [...] you are awake and alert. ??? Take mfgz-brn-bcrrgqu and prescription medicines only as told by [...] 07/26/2014 Document Revised: 03/09/2017 Document Reviewed: 01/24/2017 [employer] Interactive Patient Education ? 2017 [employer] Pulmonary Medicine Radial Site Care Introduction Refer to this [...] 03/12/2017 Document Reviewed: 04/23/2015 ? 2017 Elsevier Radiology Transradial Angiogram Transradial angiogram is an imaging [...] including vitamins, herbs, eye drops, creams, and dmor-mor-bfydyjz medicines. ??? Any problems you or family [...] 06/29/2013 Document Revised: 06/07/2017 Document Reviewed: 09/08/2016 [employer] Interactive Patient Education ? 2017 [employer] documented in this encounter Plan of Treatment Not on file documented as of this encounter Visit Diagnoses Not on filedocumented in this encounter
--- OUTSIDE RECORDS SUMMARY | 2025-04-27 14:47 | XMS_ITS | Referral Summary ---
Author Organization [employer] ([place], [place], [place], [place]) Address [address] [place] [address] Care Team Providers Care Senior Software Systems Engineer Name Role Phone Unavailable Primary Care Provider [...]
--- OUTSIDE RECORDS SUMMARY | 2025-04-27 14:47 | XMS_ITS | Encounter Summary ---
Author Organization [employer] ([place], [place], [place], [place]) Address [address] [place] [address] Care Team Providers Care Material Man Name Role Phone Unavailable Primary Care Provider Unavailabl e Encounter Details Date Type Department Care Team (Late st Contact Info) Description 12/17/2018 Transcribed Document [facility] [place] Family Medicine [address] [place] [address] ProviderCathi MD [address], [place] [id number] Social History Tobacco Use Types Packs/Day Years Used Date Smoking Tobacco: Never Assessed Comments Unknown Sex and Gender Information Value Date Recorded Sex Assigned at Not on file Legal Sex Female 4:43 PM CDT Gender Identity Not on file Sexual Orientation Not on file documented as of this encounter Miscellaneous Notes * Cerner Conversion Note - Historical ProviderMD - 12/17/2018 2:16 PM STEAM BOX OPERATOR Nursing Discharge Summary Entered On: 12/17/2018 14:16 EST Performed On: 12/17/2018 14:16 EST by KESHAWN NEWSOME airfreight loading supervisor Documentation Patient Disposition, General : Discharge Discharge To : Home with ambulatory/outpatient follow-up Mode Of Departure, General Discharge : Private vehicle Accompanied By, Discharge : Spouse IV Discontinued : Yes Personal Belongings With Patient : Yes Patient Education Completed : Yes Teaching Method : Demonstration, Explanation Teaching Evaluation : Returns demonstration, Verbalizes understanding KESHAWN NEWSOME RN - 12/17/2018 14:16 EST Electronically signed by Mikaela [facility] Conversion Aerial Erector Cerner at 02/05/2023 4:36 PM CDT documented in this encounter Plan of Treatment Not on file documented as of this encounter Visit Diagnoses Not on filedocumented in this encounter
--- OUTSIDE RECORDS SUMMARY | 2025-04-27 14:47 | XMS_ITS | Encounter Summary ---
Author Organization [employer] ([place], [place], [place], [place]) Address [address] [place] [address] Care Team Providers Care Radioisotope Technologist Name Role Phone Unavailable Primary Care Provider Unavailabl e Encounter Details Date Type Department Care Team (Late st Contact Info) Description 12/17/2018 Transcribed Document [facility] [place] [address] [place] [address] ProviderCathi MD [address], [place] [id number] Social History Tobacco Use Types Packs/Day Years Used Date Smoking Tobacco: Never Assessed Comments Unknown Sex and Gender Information Value Date Recorded Sex Assigned at Not on file Legal Sex Female 4:43 PM CDT Gender Identity Not on file Sexual Orientation Not on file documented as of this encounter Miscellaneous Notes * Cerner Conversion Note - Historical ProviderMD - 12/17/2018 2:16 PM AGENCY SALES DIRECTOR Discharge Instructions Entered On: 12/17/2018 14:17 EST Performed On: 12/17/2018 14:16 EST by KESHAWN NEWSOME RN DC Instructions HWD Stroke/TIA Discharge Ins : N/A Heart Failure Discharge Ins : N/A Warfarin Discharge Ins : N/A Diet After Discharge : Resume usual diet as tolerated Activity After Discharge : Rest and relax today, No strenuous activities Driving After Discharge : Other: May NOT drive for 24 hours Showering/Bathing : Other: May remove dressng and shower after 24 hours. No tub baths, soaking for 5 days. KESHAWN NEWSOME RN - 12/17/2018 14:16 EST Electronically signed by Mikaela [facility] Conversion Refrigeration Mechanic Cerner at 02/05/2023 4:21 PM CDT documented in this encounter Plan of Treatment Not on file documented as of this encounter Visit Diagnoses Not on filedocumented in this encounter
--- OUTSIDE RECORDS SUMMARY | 2025-04-27 14:47 | XMS_ITS | Clinical Summary ---
Author Organization [facility] Address [address] [place] [address] Care Team Providers Care Cotton Washer Name Role Phone Monica Yolanda B WARBLE SAW OPERATOR Unavailable [phone] John Patino MD Primary Care Provider [phone] Allergies Active Allergy Reactions Criticality Noted Date Comments Aspirin Unknown - Patient st ates they do not know rxn details Low 01/06/2017 Denosumab Rash Low 01/01/2023 Ibandronate Headache,Rash Medium 01/01/2023 Morphine Nausea,Rash Medium 11/26/2019 unknown unknown Other Swelling,Other - ple ase document in the comment field,Rash High 02/06/2023 Promethazine Nausea,Other - pleas e document in the comment field,Unknown - Patient states they do not know rxn details Medium 01/06/2017 Drip only can take pill. Medications cholecalciferol 10 MCG (400 UNIT) tablet Take by mouth. Activ e fluticasone (Flonase) 50 MCG/ACT nasal spray Administer into affected nostril(s). Active Bacillus Coagulans-Inulin (Probiotic) 1-250 BILLION-MG capsule Take by mouth. Active Rhubarb 4 MG tablet Take by mouth. Activ e Ventolin HFA 108 (90 Base) MCG/ACT inhaler 3 Active Aspirin Adult Low Strength 81 MG EC tablet 3 Active atorvastatin (Lipitor) 10 MG tablet Take 20 mg by mouth 1 (one) time each day. 3 Active colestipol (Colestid) 1 g tablet 3 Active esomeprazole (NexIUM) [address] capsule 3 Active famotidine (Pepcid) 40 MG tablet 3 Active Melatonin 10 MG tablet Take 10 mg by mouth 1 (one) time each day. Active metFORMIN (Glucophage) 500 MG tablet 3 Active montelukast (Singulair) 10 MG tablet 3 Active omega-3 (Fish Oil) 1000 MG capsule 3 Active ondansetron ODT (Zofran-ODT) 4 MG disintegrating tablet 2 Active Probiotic Product (Align) capsule Take 1 capsule every day by oral route. 2 Active propranolol (Inderal) 10 MG tablet Take 20 mg by mouth 2 (two) times a day. 3 Active Sodium Fluoride 5000 PPM 1.1 % paste 2 Active alpha tocopherol (Vitamin E) 400 units capsule Take by mouth. A ctive multivitamin-iron- minerals-folic acid (Centrum) chewable tablet Chew 1 tablet 1 (one) time each day. Active Social History Tobacco Use Types Packs/Day Years Used Date Smoking Tobacco: Never Smokeless Tobacco: Never Tobacco Cessation:Counseling Given: Not Answered Alcohol Use Standard Drinks/Week Comments Not Currently 0 (1 standard drink = 0.6 oz pur e alcohol) Comments Unknown Sex and Gender Information Value Date Recorded Sex Assigned at Not on file Legal Sex Female 8:45 PM EDT Gender Identity Not on file Sexual Orientation Not on file Last Filed Vital Signs Vital Sign Reading Time Taken Comments Blood Pressure 126/82 02/06/2023 9:47 AM EDT Pulse 81 02/06/2023 9:47 AM EDT Temperature - - Respiratory Rate 17 02/06/2023 9:47 AM EDT Oxygen Saturation 98% 02/06/2023 9:47 AM EDT Inhaled Oxygen Concentration - - Weight 81.3 kg (179 lb 3.2 oz) 02/06/2023 9:47 A M EDT Height 154.9 cm (5' 1 ) 02/06/2023 9:47 AM EDT Body Mass Index 33.86 02/06/2023 9:47 AM EDT Plan of Treatment Health Maintenance Due Date Last Done Comments [facility]-Bone Density Scan 1959 [facility]-Depression Screening 1959 [facility]-Infant/Child/Adol SDOH Screenings 1959 [facility]- SDOH Screenings 1977 [facility]-Adult SDOH Screenings 1977 [facility]-DTaP,Tdap,and Td Vaccine s (1 - Tdap) 1978 [facility]-Pap Smear 1980 [facility]-Cervical Cancer Screening 1989 [facility]-HPV/Cotest 1989 CT Colonography 2004 Colonoscopy 2004 FIT-DNA 2004 FIT 2004 FOBT 2004 Sigmoidoscopy 2004 [facility]-Colorectal Cancer Screening 2004 [facility]-Pneumococcal Vaccine: 50 + Years (1 of 1 - PCV) 2009 [facility]-Zoster Vaccines (1 of 2) 2009 IDM-PSPFP-04 Vaccine (1 - 20 24-25 season) 2024 [facility]-Influenza Vaccine (#1) 2025 [facility]-RSV Vaccine: 60+ Years o r (1 - 1-dose 75+ series) 2034 HPV Vaccines Aged Out No longer eligi ble based on patient's age to complete this topic [facility]-HIB Vaccines Aged Out No longer e ligible based on patient's age to complete this topic [facility]-Hepatitis A Vaccines Aged Out No longer eligible based on patient's age to complete this topic [facility]-IPV Vaccines Aged Out No longer e ligible based on patient's age to complete this topic [facility]-Rotavirus Vaccines Aged Out No lo nger eligible based on patient's age to complete this topic Insurance [facility] [place] [place] [address] Care Teams Cotton Washer Relationship Specialty Start Date End Date John Patino MD [address] [place] [address] PCP - General 02/06/23 Yolanda Anderson, MALIHA [address] [facility] [address] [place] [address] Nurse Practitioner Neurosurgery 02/06/23
--- OUTSIDE RECORDS SUMMARY | 2025-04-27 14:47 | XMS_ITS | Encounter Summary ---
Author Organization [employer] ([place], [place], [place], [place]) Address [address] [place] [address] Care Team Providers Care Career Professional Name Role Phone Unavailable Primary Care Provider Unavailabl e Encounter Details Date Type Department Care Team (Late st Contact Info) Description 12/17/2018 Transcribed Document [facility] [place] [facility] [place] [address] ProviderCathi MD [address], [place] [id number] Social History Tobacco Use Types Packs/Day Years Used Date Smoking Tobacco: Never Assessed Comments Unknown Sex and Gender Information Value Date Recorded Sex Assigned at Not on file Legal Sex Female 4:43 PM CDT Gender Identity Not on file Sexual Orientation Not on file documented as of this encounter Miscellaneous Notes * Cerner Conversion Note - Historical ProviderMD - 12/17/2018 12:06 PM INTERNET MARKETING SPECIALIST Pre Procedure Adult Entered On: 12/17/2018 12:12 EST Performed On: 12/17/2018 12:06 EST by KESHAWN NEWSOME RN Height and Weight, Clinical Dosing Height Source : Stated Height Entry Format : [place] Height, Feet : 5 ft(Converted to: 152 cm, 60 Inch) Height, Inches : 1 Inch(Converted to: 0 ft 1 Inch, 2.54 cm) Clinical Height : 154.94 cm Weight Source : Standing scale Weight Entry Format : [place] Clinical Dosing Weight : 78.64 kg Weight, Pounds : 173 lb Body Surface Area (BSA) : 1.78 m2 Body Mass Index : 32.8 kg/m2 (HI) [place] Body Weight : 47 kg KESHAWN NEWSOME RN - 12/17/2018 12:06 EST Health Histories Smoking Status : Never (less than 100 in lifetime; none in last 30 days) Smokeless Tobacco Status : Never KESHAWN NEWSOME RN - 12/17/2018 12:06 EST Social History (As Of: 12/17/2018 12:12:10 EST) Infectious Disease History Infectious Disease History Comment : Has had recent test for c-diff and was negative Infectious Disease History : C-Difficile, Chicken pox/Shingles, Influenza, MRSA KESHAWN NEWSOME RN - 12/17/2018 12:19 EST Fever/Chills Last 48 Hours : No Travel To Regions with Travel Advisories : No Travel Outside [place] Within Last 30 Days : No Contact With Traveler to Advisory Region : No Tuberculosis Symptoms : None KESHAWN NEWSOME RN - 12/17/2018 12:06 EST Anesthesia/Transfusion History Family History of Anesthesia Reaction : No prior transfusion(s) Blood Transfusion Acceptable to Patient : Yes Transfusion History : Prior anesthesia reaction Type of Anesthesia Reaction : Excessive nausea/vomiting Family History of Anesthesia Reaction : Other: sister gets nausea also KESHAWN NEWSOME RN - 12/17/2018 12:06 EST Functional Assessment Living Situation : Home Patient Lives With : Spouse Current Home Treatments : Nebulizer treatments KESHAWN NEWSOME RN - 12/17/2018 12:06 EST Psychosocial History Currently in Unsafe Situation : No Tried to Harm Yourself in the Past? : No Thoughts of Harming/Killing Yourself : No KESHAWN NEWSOME RN - 12/17/2018 12:06 EST Advance Directive Patient has Advance Directive *Q : No, patient refuses Advance Directive information KESHAWN NEWSOME RN - 12/17/2018 12:06 EST General Info Want Family/Rep/Phys Notified of Admit : No Emergency Contact #1 : Chencho Becerra Emergency Contact #1 Phone Number : Emergency Contact #1 Relationship : [phone] Emergency Contact #2 : mahogany Emergency Contact #2 Phone Number : none Emergency Contact #2 Relationship : none Primary Language : Frisian Communication Barrier : None KESHAWN NEWSOME RN - 12/17/2018 12:06 EST Sleep Apnea Risk Assmt Hx of Obstructive Sleep Apnea Diagnosis : No Snore Loudly : Yes Tired, Fatigued, or Sleepy During Day : Yes Observed Stopping Breathing During Sleep : No Have/Are Being Treated for Hypertension : No STOP Sleep Apnea Risk Level Score : 2 STOP Sleep Apnea Risk Level : High KESHAWN NEWSOME RN - 12/17/2018 12:06 EST Hung Scale Hung Sensory Perception : No impairment Hung Moisture : Rarely moist Hung Activity : Walks frequently Hung Mobility : No limitation Hung Nutrition : Adequate Hung Friction and Shear : No apparent problem Hung Score : 22 KESHAWN NEWSOME RN - 12/17/2018 12:06 EST Fall Risk Scales ABCs Fall Injury Risk Identification : None SETHI Hx Falls Immediate/Within 3 Months : No Sethi Secondary Diagnosis : No SETHI Use of Ambulatory Aid : None SETHI IV Therapy or IV Access : Yes Sethi Gait/Transferring : Normal, bedrest, immobile Stehi Mental Status : Oriented to own ability Sethi Fall Risk Score : 20 SETHI Fall Scale Risk Level : 0-24 Low Risk [place] Fall Interventions : Adequate lighting, Assistive devices within reach, Bed in low position, Fall prevention handout/education per facility policy, Hourly comfort/safety rounds, Non-slip footwear, Personal items within reach, Reinforced to call for assistance before getting out of bed, Room free of clutter/spills, Upper side-rails up, Wheels locked, Wires/Cords secured KESHAWN NEWSOEM RN - 12/17/2018 12:06 EST Valuables and Belongings Valuables and Belongings : Clothing Clothing : Common streetwear Clothing Disposition : Bedside KESHAWN NEWSOME RN - 12/17/2018 12:06 EST Electronically signed by Mikaela [facility] Conversion Coordinator Mining Products Cerner at 02/05/2023 4:23 PM CDT documented in this encounter Plan of Treatment Not on file documented as of this encounter Visit Diagnoses Not on filedocumented in this encounter
--- OUTSIDE RECORDS SUMMARY | 2025-04-27 14:47 | XMS_ITS | Encounter Summary ---
Author Organization [email or web address] ([place], [place], [place], [place]) Address [address] [place] [address] Care Team Providers Care Rv Repairer Name Role Phone Unavailable Primary Care Provider Unavailabl e Encounter Details Date Type Department Care Team (Late st Contact Info) Description 12/17/2018 Transcribed Document [facility] [place] Family Medicine [facility] [place] [address] ProviderCathi MD [address], [place] [id number] Social History Tobacco Use Types Packs/Day Years Used Date Smoking Tobacco: Never Assessed Comments Unknown Sex and Gender Information Value Date Recorded Sex Assigned at Not on file Legal Sex Female 4:43 PM CDT Gender Identity Not on file Sexual Orientation Not on file documented as of this encounter Miscellaneous Notes * Cerner Conversion Note - Historical ProviderMD - 12/17/2018 1:02 PM AREA DEVELOPMENT MANAGER Event Note Entered On: 12/17/2018 13:02 EST Performed On: 12/17/2018 13:02 EST by KESHAWN NEWSOME RN Event Note Event Date/Time : 12/17/2018 13:02 EST Description of Event : Patient reports taking premeds last night of Prednision, benedryl, and pepcid. KESHAWN NEWSOME RN - 12/17/2018 13:02 EST documented in this encounter Plan of Treatment Not on file documented as of this encounter Visit Diagnoses Not on filedocumented in this encounter
--- OUTSIDE RECORDS SUMMARY | 2025-04-27 14:47 | XMS_ITS | Data Portability ---
Author Organization [place] - [facility] & GABBY Wang ADMIN Address [address] [place] [address] Care Team Providers Care Director Of Hospitality Name Role Phone SAV MOYERE Primary Care Provider Assessment Encounter Date Assessment Date Assessment LastModified by Organization Details LastModified Time 11/03/2024 11/03/2024 64-year-old farshad pratt never smoked in her life. Ionized asthma and since 2015. She has been using different inhalers. HEENT asthma was very stable and lastly was not Singulair 5 mg daily. She quit using November 2023. Since then she developed history of cough. Rare sputum production. Intermittent wheezing. She denied history of thrombosis. No history of heart disease. Positive history of nasal allergies on Flonase. She denied his oxygen use. No history of obstructive sleep apnea. December 2023 PFT mild restrictive lung disease TLC 77%. No response to bronchodilator therapy. Normal diffusion capacity DLCO 106%. January 2024 CT chest no acute cardiopulmonary process. good response to prednisone treatment started mid January 2024. She still short of breath on minimal exertion with use of albuterol at least 3 times a day. Refill Symbicort 160, Spiriva 1.25 Respimat inhaler. Refill Singulair. patient off steroids. She used only 1 time dose of Fasenra in the office. She did not get other doses. However this time she tells me that her symptoms are much better. She is only using Symbicort. She does not know what is caused improvement in her symptoms. She was hospitalized to [facility] October 13, 2024. For influenza a viral pneumonia and Janak I. Discontinue Fasenra. Discontinue Spiriva. Continue albuterol as needed. Continue Flonase. RTC 6-8 months. sharla Not available 11/03/2024 16:09:24 Plan of Treatment Reminders Order Date Submit Date Provider Last Modified By Organization Details Last Modified Time Details Appointments OV EST 15 2024 09:00A M Rosa M Argueta NP Not available Not available Not available OV EST 15 2024 01:30P Rain Stone M.D Not available Not available Not available Lab microalbu min/creat inine, ratio, urine 2024 025 [facility] (Laboratory), [address] , [place], [address], 01/31/2025 16:56:21 CMP, serum or plasma 2024 025 [facility] (Laboratory), [address] [place], [address], 01/31/2025 16:37:31 hemoglobi n A1c + average glucose, QN, blood 2024 025 [facility] (Laboratory), [address] [place], [address], 02/07/2025 07:55:30 Referral None recorded. Procedures None recorded. Surgeries None recorded. Imaging None recorded. Medication Orders Linzess 72 mcg capsule 2024 025 [facility], [facility] [place], [address], 11/16/2024 12:58:15 ondansetr on 4 mg disintegr ating tablet 2024 025 [facility] [place], [address], 11/16/2024 10:58:11 esomepraz ole magnesium 40 mg capsule,d elayed release 2024 025 POTTER [employer] [facility], [facility] [place], [address], 11/16/2024 10:24:39 Patient TargetsNo targets recorded. Patient InstructionsNo instructions recorded. Reason for Referral None Reported. Results Created Date Observation Date Name Description Value Unit Range Abnormal Flag Note LastModifiedBy Organization Detail LastModifiedTime 02/01/20 25 01/31/2025 COMP METAB OLIC PANEL sodium 141 mmol/ L 136-14 5 Not Available [facility] (Lab Registration) [address], [place], [address], 01/31/2025 16:37:31 02/01/20 25 01/31/2025 COMP METAB OLIC PANEL potassium 4.1 mmol/ L 3.5-5. 1 Not Available [facility] (Lab Registration) [address] [place], [address], 01/31/2025 16:37:31 02/01/20 25 01/31/2025 COMP METAB OLIC PANEL chloride 106 mmol/ L 98-107 Not Available [facility] (Lab Registration) [address] [place], [address], 01/31/2025 16:37:31 02/01/20 25 01/31/2025 COMP METAB OLIC PANEL carbon dioxide 27 mmol/ L 21-32 Not Available [facility] (Lab Registration) [address] [place], [address], 01/31/2025 16:37:31 02/01/20 25 01/31/2025 COMP METAB OLIC PANEL anion gap 8.0 Not Available [facility] (Lab Registration) [address] [place], [address], 01/31/2025 16:37:31 02/01/20 25 01/31/2025 COMP METAB OLIC PANEL glucose 101 mg/dL 70-110 Not Available [facility] (Lab Registration) [address] [place], [address], 01/31/2025 16:37:31 02/01/20 25 01/31/2025 COMP METAB OLIC PANEL blood urea nitrogen 17 mg/dL 7-18 Not Available [facility] (Lab Registration) [address], [place], [address], 01/31/2025 16:37:31 02/01/20 25 01/31/2025 COMP METAB OLIC PANEL creatinine 0.9 mg/dL 0.6-1. 0 Not Available [facility] (Lab Registration) [address], [place], [address], 01/31/2025 16:37:31 02/01/20 25 01/31/2025 COMP METAB OLIC PANEL BUN/creatini ne ratio 18.9 9-21 Not Available [facility] (Lab Registration) [address], [place], [address], 01/31/2025 16:37:31 02/01/20 25 01/31/2025 COMP METAB OLIC PANEL estimated glom filtration rate 71 mL/mi n >60- GFR LIMIT ATION : The eGFR equat ion CKD-E PI 2020 is not appli cable for pedia tric patie nts or great er than 90 years of age. The follo wing condi tions may alter the GFR resul t: extre mes in body size, malnu triti on or obesi ty, skele dmitry muscl e disea se, parap legia or quadr ipleg ia, veget basilio diet or rapid ly mendoza ing kiney funct ion. Not Available [facility] (Lab Registration) [address], [place], [address], 01/31/2025 16:37:31 02/01/20 25 01/31/2025 COMP METAB OLIC PANEL osmolality (calculated) 295 mOsm/ kg 275-30 1 OSMOL ALITY IS A CALCU LATIO N UTILI ZING THE SERUM /PLAS MA SODIU M, GLUCO SE AND UREA NITRO GEN (BUN) LEVEL S. FOR THE MOST ACCUR ATE RESUL T A MEASU RED SERUM OSMOL ALITY IS SUGGE STED. Not Available [facility] (Lab Registration) [address] [place], [address], 01/31/2025 16:37:31 02/01/20 25 01/31/2025 COMP METAB OLIC PANEL total protein 6.4 g/dL 6.4-8. 2 Not Available [facility] (Lab Registration) [address], [place], [address], 01/31/2025 16:37:31 02/01/20 25 01/31/2025 COMP METAB OLIC PANEL albumin 3.3 g/dL 3.4-5. 0 low Not Available [facility] (Lab Registration) [address], [place], [address], 01/31/2025 16:37:31 02/01/20 25 01/31/2025 COMP METAB OLIC PANEL calcium 9.6 mg/dL 8.5-10 .1 Not Available [facility] (Lab Registration) [address], [place], [address], 01/31/2025 16:37:31 02/01/20 25 01/31/2025 COMP METAB OLIC PANEL corrected calcium 10.2 mg/dL 8.5-10 .1 high Not Available [facility] (Lab Registration) [address], [place], [address], 01/31/2025 16:37:31 02/01/20 25 01/31/2025 COMP METAB OLIC PANEL bilirubin total 0.2 mg/dL 0.4-1. 5 low Not Available [facility] (Lab Registration) [address] [place], [address], 01/31/2025 16:37:31 02/01/20 25 01/31/2025 COMP METAB OLIC PANEL AST (SGOT) 13 U/L 15-37 low Not Available [facility] (Lab Registration) [address] [place], [address], 01/31/2025 16:37:31 02/01/20 25 01/31/2025 COMP METAB OLIC PANEL ALT (SGPT) 16 U/L 12-78 Not Available [facility] (Lab Registration) [address] [place], [address], 01/31/2025 16:37:31 02/01/20 25 01/31/2025 COMP METAB OLIC PANEL alk phosphatase 126 U/L 53-141 Not Available [facility] (Lab Registration) [address] [place], [address], 01/31/2025 16:37:31 02/01/20 25 01/31/2025 COMP METAB OLIC PANEL note Unles s other jacques noted testi ng perfo rmed at: [facility] [address] [place] [address] [phone] Sky terrazas MD CLIA: [id number] Not Available [facility] (Lab Registration) [address] [place], [address], 01/31/2025 16:37:31 02/01/20 25 01/31/2025 HEMOG LOBIN A1C glycosylated hemoglobin A1C 5.6 % 4.5-6. 2 Not Available [facility] (Lab Registration) [address] [place], [address], 01/31/2025 16:37:35 02/01/20 25 01/31/2025 HEMOG LOBIN A1C estimated average glucose 114 mg/dL 82-131 Not Available [facility] (Lab Registration) [address] [place], [address], 01/31/2025 16:37:35 02/01/20 25 01/31/2025 HEMOG LOBIN A1C note Unles s other jacques noted testi ng perfo rmed at: [facility] [address] [place] [address] [phone] Sky terrazas MD CLIA: [id number] Not Available [facility] (Lab Registration) [address] [place], [address], 01/31/2025 16:37:35 02/01/20 25 01/31/2025 MICRO ALBUM IN/CR EATIN INE URINE microalbumin random 2.1 mcg/m L 1.3-17 .0 Not Available [facility] (Lab Registration) [address], [place], [address], 01/31/2025 16:56:21 02/01/20 25 01/31/2025 MICRO ALBUM IN/CR EATIN INE URINE creatinine urine 78.3 mg/dL 30-125 Not Available [facility] (Lab Registration) [address], [place], [address], 01/31/2025 16:56:21 02/01/20 25 01/31/2025 MICRO ALBUM IN/CR EATIN INE URINE microalbumin /creatinine ratio 0.0 ug/mg _crea t 0.0-30 .0 Not Available [facility] (Lab Registration) [address], [place], [address], 01/31/2025 16:56:21 02/01/20 25 01/31/2025 MICRO ALBUM IN/CR EATIN INE URINE note Unles s other jacques noted testi ng perfo rmed at: [facility] [address] [place] [address] [phone] Sky terrazas MD CLIA: [id number] Not Available [facility] (Lab Registration) [address], [place], [address], 01/31/2025 16:56:21 Result Notes None recorded. Problems Name Problem SNOMED Code Status Onset Date Resolution Date Notes Provider Name and Address Organization Details Recorded Time Hyperlipidemi a 19078384 Active 2021 HYACINTH [facility] & [place] 2 14:55:31 Asthma 738379249 Active 2021 HYACINTH [facility] & [place] 2 14:55:41 Type 2 diabetes mellitus 16620177 Active 2021 Katherine Pardini null, [place] - [facility] [place] & [place] 2 14:55:53 Allergic rhinitis 83292177 Active 2021 Katherine Pard[place], [place] [facility] [place] & [place] 2 14:56:02 Tachycardia 8286197 Active 2021 Katherine Pardini null, [place] [facility] [place] & [place] 2 14:56:35 Hypertensive disorder 84191641 Active 2021 Katherine Pard[place] [facility] [place] & [place] 2 14:56:41 Gastroesophag eal reflux disease 582660508 Active 2021 Katherine Pardini null, [place] [facility] [place] & [place] 2 14:56:51 Gastroparesis syndrome 780915048 Active 2021 Rosa M Argueta NP [address], [address], [address] , [place] - [facility] [place] & [place] 2 11:47:26 Diarrhea 29106165 Active 2021 Rosa M Argueta NP [address] [place] [address] Drive, [address], [address] , [place] - [facility] [place] & [place] 2 11:47:45 Lumbago with sciatica 192599712 Active 2022 John Moyer MD [address] [place], [address] , [place] - [facility] [place] & [place] 3 12:29:58 Nausea and vomiting 02043219 Active 2022 Rosa M Argueta NP [address], [address], [address] , [place] [facility] [place] & [place] 3 09:31:35 Esophageal dysphagia 39725411 Active 2022 Rosa M Argueta NP [address], [address], [place], [address] , [place] [facility] [place] & [place] 3 09:32:25 Oropharyngeal dysphagia 90509995 Active 2022 Rosa M Argueta NP [address] [facility] [place], [address], [place], [address] , [place] [facility] [place] & [place] 3 21:35:09 Contact dermatitis 20430600 Active 2022 Salinas Riggins MD [address] [place], [address] , [place] [facility] [place] & [place] 3 11:15:49 Sensorineural hearing loss 31065920 Active 2022 PARAMJIT BLACK, AUD [address] [facility], [place], [address] , [place] [facility] [place] & [place] 3 09:38:20 Abdominal pain 69471638 Active 2023 Rosa M Argueta NP [address] [facility], [address], [address] , [place] [facility] [place] & [place] 4 13:07:55 Irritable bowel syndrome characterized by constipation 982405309 Active 2023 Rosa M Argueta NP [address] [facility], [address], [place], [address] , [place] [facility] [place] & [place] 4 13:08:39 Obesity 563095361 Active 2023 John Moyer MD [address] [place] [address], [address] , [place] [facility] [place] & [place] 4 11:01:02 Chronic dyspnea 545587916 Active 2023 Katherine Parterry still[place] [facility] & [place] 4 11:08:37 Chronic idiopathic constipation 88404520 Active 2023 Rosa M Argueta NP [address], [address], [address] , [place] [facility] [place] & [place] 4 11:26:21 Problem Notes None recorded. Procedures Surgical History Date Name Laterality Status Provider Name and Address Organization Details Recorded Time 05/13/20 23 EGD/Endoscopy completed Blank Elsie [place] - [facility] - [place] & [place] 06/10/2023 08:40:29 11/19/19 23 completed Katherine Pardini [place] - [facility] [place] & [place] 11/09/2023 08:13:49 10/19/19 19 Date of Last Colonoscopy completed Katherine Pardini [place] - [facility] [place] & [place] 11/25/2022 10:48:48 10/19/19 19 Breast Surgery completed Katherine [place]ardini [place] [facility] [place] & [place] 11/10/2022 13:59:53 10/19/19 19 Colonoscopy completed Katherine Pardini [place] [facility] [place] & [place] 09/23/2022 08:53:41 10/19/19 18 Other completed Katherine Pardini [place] [facility] [place] & [place] 11/10/2022 13:59:53 10/19/19 18 Colonoscopy completed Blank Elsie [place] - [facility] [place] & [place] 2022 11:22:54 10/19/19 18 EGD/Endoscopy completed Blank Elsie [place] - [facility] [place] & [place] 2022 11:23:01 10/19/19 15 Other completed Katherine Pardini [place] - [facility] [place] & [place] 11/10/2022 13:59:53 10/19/19 14 Most Recent Bone Density completed Katherine Pardini [place] - [facility] [place] & [place] 11/25/2022 10:48:48 10/19/19 14 Other completed Katherine Pardini [place] [facility] [place] & [place] 11/10/2022 13:59:53 10/19/19 12 Date of Last Pap Smear completed Katherine Pardini [place] - [facility] [place] & [place] 11/25/2022 10:48:48 10/19/19 10 Sinus Surgery completed Katherine Pardini [place] [facility] [place] & [place] 09/23/2022 08:53:41 01/01/19 96 Other completed Katherine Pardini [place] - [facility] & [place] 09/23/2022 08:53:41 total abdominal hysterectomy completed Blank PIERRE [facility] & [place] 2022 11:22:34 Cholecystectomy completed Blank PIERRE [facility] & [place] 2022 11:22:44 Dilation and Curettage completed Blank PIERRE [facility] & [place] 2022 11:23:12 biopsy of breast completed Blank PIERRE [facility] & [place] 2022 11:23:44 Imaging Results None recorded. Procedure Notes None recorded. Medical Equipment None Reported. Allergies Allergen ID Allergen Name Allergen Category Reaction Reaction Severity Criticality Documentation Date Start Date Code Code System Note Provider Name and Address Organization Details Recorded Time 256840 Cymbalta medicatio n nausea vomiting Not available Not available Not available 10/18/2024 48759 4 RxNorm Avistoña still, HYACINTH Gee [facility] & [place] 4 10:56:34 957907 Paxil medicatio n Not available Not available Not available 10/18/2024 43950 8 RxNorm Avis still, HYACINTH Gee [facility] & [place] 4 10:57:02 427542 Prolia medicatio n itching rash Not available Not available Not available 10/18/2024 79207 3 RxNorm Avis still, HYACINTH Gee [facility] & [place] 4 10:57:33 259238 amlodipin e medicatio n dizziness swelling Not available Not available Not available 10/18/2024 94858 RxNorm Avistoña Roe null, HYACINTH Gee [facility] & [place] 4 11:03:03 203591 aspirin medicatio n Not available Not available Not available 10/18/2024 1191 RxNorm Avistoña Roe null, HYACINTH Gee [facility] & [place] 4 11:03:20 493465 hydralazi ne medicatio n headache swelling Not available Not available Not available 10/18/2024 5470 RxNorm Aivs Jyothi null, HYACINTH [facility] & [place] 4 11:03:57 449447 losartan medicatio n nausea Not available Not available 10/18/2024 98123 RxNorm HYACINTH Interiano [facility] & [place] 4 11:04:17 123602 promethaz ine medicatio n nausea Not available Not available 10/18/2024 8745 RxNorm Avis still, HYACINTH [facility] & [place] 4 11:04:45 168720 denosumab medicatio n rash Not available Not available 10/18/2024 75288 9 RxNorm HYACINTH Inter[facility] & [place] 4 11:04:57 12575 morphine medicatio n nausea moderate Not available 08/04/2022 7052 RxNorm cause s patie nt to jump, muscl e spasm s HYACINTH [facility] & [place] 3 13:59:51 40808 Phenergan medicatio n other moderate Not available 08/04/2022 20731 8 RxNorm ONLY Phene rgan DRIP cause s muscl es to jump HYACINTH [facility] & [place] 3 13:59:51 42573 Boniva medicatio n headache moderate Not available 08/04/2022 94310 4 RxNorm patie nt has react ions to most Osteo peros is medic ation s Katherine still, HYACINTH [facility] & [place] 3 13:59:51 89819 animal dander environme nt eye swelling other rash moderate moderate moderate Not available 11/10/2022 42145 UNK HYACINTH [facility] & [place] 3 13:59:51 Medications Name Sig Start Date Stop Date Status Note LastModified by Organization Details LastModified Time amantadine HCl 100 mg tablet 08/26 completed Not Available Not Available Not Available amoxicillin 500 mg capsule 05/31 completed Not Available Not Available Not Available metformin 500 mg tablet 01/31 completed Not Available Not Available Not Available hydralazine 10 mg tablet 01/31 completed Not Available Not Available Not Available prednisone 10 mg tablet Take 1 tablet every day by oral route. 10/20 completed Not Available Not Available Not Available doxycycline hyclate 100 mg capsule Take 1 capsule twice a day by oral route. 10/20 completed Not Available Not Available Not Available atorvastati n 20 mg tablet 01/31 completed Not Available Not Available Not Available cetirizine 10 mg tablet 01/31 completed Not Available Not Available Not Available atorvastati n 10 mg tablet TAKE 1 TABLET BY MOUTH ONCE DAILY 01/07 completed Not Available Not Available Not Available ibuprofen 800 mg tablet 01/31 completed Not Available Not Available Not Available tizanidine 4 mg tablet 06/02 completed Not Available Not Available Not Available fluconazole 150 mg tablet Take 1 tablet every day by oral route for 2 days. 06/02 completed Not Available Not Available Not Available benzonatate 200 mg capsule Take 1 capsule 3 times a day by oral route. 01/15 completed Not Available Not Available Not Available cephalexin 250 mg capsule 06/02 completed Not Available Not Available Not Available hydrocodone 5 mg-acetamin ophen 325 mg tablet 05/31 completed Not Available Not Available Not Available ondansetron HCl 4 mg tablet Take 1 tablet every 4-6 hours by oral route as needed for 10 days. 10/20 completed Not Available Not Available Not Available famotidine 40 mg tablet active Not Available Not Available Not Available prednisone 20 mg tablet Take 2 tablets every day by oral route. 01/15 completed Not Available Not Available Not Available ceftriaxone 250 mg solution for injection Take 250 mg every day by injection route for 1 day. 06/02 completed Not Available Not Available Not Available propranolol ER 60 mg capsule,24 hr,extended release active Not Available Not Available Not Available promethazin e 6.25 mg-codeine 10 mg/5 mL syrup 10/20 completed Not Available Not Available Not Available hydralazine 25 mg tablet 09/12 completed Not Available Not Available Not Available propranolol 60 mg tablet 10/20 completed Not Available Not Available Not Available amlodipine 5 mg tablet Take 1 tablet every day by oral route for 30 days. 11/16 completed Not Available Not Available Not Available aspirin 81 mg tablet,flynn yed release Take 1 tablet every day by oral route. active Not Available Not Available No t Available triamcinolo ne acetonide 0.1 % topical cream APPLY A THIN LAYER TO THE AFFECTED AREA(S) BY TOPICAL ROUTE 2 TIMES PER DAY 09/08 completed Not Available Not Available Not Available ondansetron 8 mg disintegrat ing tablet Place 1 tablet twice a day by transling ual route as needed. 12/01 completed Not Available Not Available Not Available baclofen 20 mg tablet 09/21 completed Not Available Not Available Not Available hydrocortis one acetate 25 mg rectal suppository 10/19 completed Not Available Not Available Not Available ketorolac 10 mg tablet Take 1 tablet 3 times a day by oral route for 5 days. 12/24 completed Not Available Not Available Not Available prednisone 10 mg tablets in a dose pack Take 1 dose pk every day by oral route for 6 days. 06/02 completed Not Available Not Available Not Available meloxicam 7.5 mg tablet 09/21 completed Not Available Not Available Not Available oxycodone-a cetaminophe n 5 mg-325 mg tablet Take 1 tablet twice a day by oral route for 3 days. 09/21 completed Not Available Not Available Not Available propranolol 10 mg tablet Take 2 tablets twice a day by oral route. 09/12 completed Not Available Not Available Not Available ceftriaxone 1 gram solution for injection 12/01 completed Not Available Not Available Not Available amoxicillin 875 mg tablet TAKE 1 TABLET BY ORAL ROUTE EVERY 12 HOURS FOR 10 DAYS 08/04 completed Not Available Not Available Not Available methocarbam ol 750 mg tablet Take 1 tablet every day by oral route as directed for 30 days. 07/18 completed Not Available Not Available Not Available baclofen 10 mg tablet 1 tablet every day by oral route. 01/31 completed Not Available Not Available Not Available cephalexin 500 mg capsule 12/01 completed Not Available Not Available Not Available oseltamivir 75 mg capsule 10/20 completed Not Available Not Available Not Available esomeprazol e magnesium 40 mg capsule,del ayed release Take 1 capsule every day by oral route as directed for 90 days. active Not Available Not Available No t Available nystatin 100,000 unit/gram topical cream 01/31 completed Not Available Not Available Not Available losartan 25 mg tablet 12/27 completed Not Available Not Available Not Available montelukast 10 mg tablet 01/31 completed Not Available Not Available Not Available codeine 10 mg-guaifene sin 100 mg/5 mL oral liquid Take 5 mL every 4 hours by oral route as needed. 11/01 completed Not Available Not Available Not Available furosemide 20 mg tablet 01/31 completed Not Available Not Available Not Available Promethegan 25 mg rectal suppository Insert 1 supposito ry 3 times a day by rectal route as needed. 11/16 completed Not Available Not Available Not Available methylpredn isolone 4 mg tablets in a dose pack take as directed 10/20 completed Not Available Not Available Not Available ketorolac 60 mg/2 mL intramuscul ar solution Inject 60 mg by intramusc ular route. 12/24 completed Not Available Not Available Not Available propranolol 20 mg tablet Take 1 tablet every day by oral route as directed for 90 days. 12/27 completed Not Available Not Available Not Available celecoxib 100 mg capsule 09/21 completed Not Available Not Available Not Available ondansetron 4 mg disintegrat ing tablet Place 1 tablet every 4-6 hours by transling ual route as needed for 10 days. active Not Available Not Available No t Available fluticasone propionate 50 mcg/actuati on nasal spray,suspe nsion 01/31 completed Not Available Not Available Not Available colestipol 1 gram tablet 10/02 completed Not Available Not Available Not Available amoxicillin 875 mg-potassiu m clavulanate 125 mg tablet Take 1 tablet every 12 hours by oral route. 01/15 completed Not Available Not Available Not Available Ventolin HFA 90 mcg/actuati on aerosol inhaler INHALE 2 PUFFS EVERY 4 HOURS BY INHALATIO N ROUTE. active Not Available Not Available No t Available glipizide 2.5 mg-metformi n 250 mg tablet 10/21 completed Not Available Not Available Not Available Restasis 0.05 % eye drops in a dropperette 01/31 completed Not Available Not Available Not Available sodium fluoride 1.1 % dental paste active Not Available Not Available Not Available Keflex 750 mg capsule Take 1 capsule twice a day by oral route for 10 days. 06/02 completed Not Available Not Available Not Available Fish Oil 340 mg-1,000 mg capsule 06/02 completed Not Available Not Available Not Available omega-3 fatty acids-fish oil 300 mg-1,000 mg capsule 01/31 completed Not Available Not Available Not Available Symbicort 160 mcg-4.5 mcg/actuati on HFA aerosol inhaler Inhale 2 puffs twice a day by inhalatio n route for 30 days. 01/31 completed Not Available Not Available Not Available Align (B.infantis ) 4 mg capsule Take 1 capsule every day by oral route. 11/16 completed Not Available Not Available Not Available ropinirole ER 2 mg tablet,exte nded release 24 hr Take by oral route for 14 days. 07/21 completed Not Available Not Available Not Available cholecalcif qian (vitamin D3) 50 mcg (2,000 unit) tablet TAKE 1 TABLET BY MOUTH EVERY DAY 06/02 completed Not Available Not Available Not Available vitamin E (dl, acetate) 180 mg (400 unit) capsule 05/31 completed Not Available Not Available Not Available Solu-Medrol (PF) 125 mg/2 mL solution for injection Take 125 mg by injection route. 07/19 completed Not Available Not Available Not Available Vitamin D3 50 mcg (2,000 unit) capsule 01/31 completed Not Available Not Available Not Available [facility] with Large Mask 11/16 completed Not Available Not Available Not Available lidocaine 5 % topical ointment 10/19 completed Not Available Not Available Not Available melatonin 10 mg tablet Take 1 tablet every day by oral route. 11/16 completed Not Available Not Available Not Available Caltrate with Vitamin D3 600 mg-20 mcg (800 unit) tablet Take 1 tablet every day by oral route. 01/31 completed Not Available Not Available Not Available Linzess 145 mcg capsule 10/20 completed Not Available Not Available Not Available Centrum Silver Women 01/31 completed Not Available Not Available Not Available Spiriva Respimat 1.25 mcg/actuati on solution for inhalation Inhale 2 puffs every day by inhalatio n route. 10/20 completed Not Available Not Available Not Available Mucus Relief ER 1,200 mg tablet, extended release 11/10 completed Not Available Not Available Not Available Fish Oil 1,000 mg (120 mg-180 mg) capsule Take 1 capsule every day by oral route. 01/31 completed Not Available Not Available Not Available Linzess 72 mcg capsule Take 1 capsule every day by oral route for 90 days. 2024 active Not Available Not Available Not Avai lable Ozempic 0.25 mg or 0.5 mg (2 mg/1.5 mL) subcutaneou s pen injector Inject 0.25 mg every week by subcutane ous route for 28 days. 01/31 completed Not Available Not Available Not Available ergocalcife rol (vitamin D2) 50 mcg (2,000 unit) capsule Take 1 capsule every day by oral route. 11/10 completed Not Available Not Available Not Available Fasenra Pen 30 mg/mL subcutaneou s auto-inject or Inject 1 mL by sub-q route. 01/31 completed Not Available Not Available Not Available Estroven Complete Menopause Relief 4 mg tablet 05/31 completed Not Available Not Available Not Available Breztri Aerosphere 160 mcg-9mcg-4. 8mcg/actuat ion HFA aerosol inhaler Inhale by inhalatio n route for 30 days. 05/31 completed Not Available Not Available Not Available Hycodan 5 mg-1.5 mg/5 mL (5 mL) oral solution Take 5 mL every 4 hours by oral route. 05/31 completed Not Available Not Available Not Available Flowflex COVID-19 Antigen Home Test kit DIRECTED 08/04 completed Not Available Not Available Not Available Ozempic 0.25 mg or 0.5 mg (2 mg/3 mL) subcutaneou s pen injector 09/12 completed Not Available Not Available Not Available Vitals Date Recorded Body height Body mass index (BMI) Body weight Body temperature Oxygen saturation Oxygen saturation in Arterial blood by Pulse oximetry Heart rate Respiratory rate Systolic And Diastolic Provider Name and Address Organization Details Last Updated DateTime 5 154.94 cm 33.7 kg/m2 12463.8 8 g 97.3 [degF] 99 % 99 % 79 /min 16 /min 137/79 mm[Hg] Katherine Emersonterry [place] - [facility] & [place] 5 11:44:06 Date Recorded Body height Body mass index (BMI) Body weight Body temperature Oxygen saturation Oxygen saturation in Arterial blood by Pulse oximetry Heart rate Systolic And Diastolic Provider Name and Address Organization Details Last Updated DateTime 5 154.94 cm 33.4 kg/m2 64141.8 5 g 97.7 [degF] 97 % 97 % 75 /min 140/90 mm[Hg] Nafisa Brewer [facility] & [place] 5 13:52:47 Date Recorded Body height Body mass index (BMI) Body weight Body temperature Oxygen saturation Oxygen saturation in Arterial blood by Pulse oximetry Heart rate Provider Name and Address Organization Details Last Updated DateTime 5 154.94 cm 33 kg/m2 41398.2 3 g 97.9 [degF] 98 % 98 % 79 /min Sapna Akins [facility] & [place] 5 09:53:01 Date Recorded Body height Body mass index (BMI) Body weight Body temperature Oxygen saturation Oxygen saturation in Arterial blood by Pulse oximetry Heart rate Respiratory rate Systolic And Diastolic Provider Name and Address Organization Details Last Updated DateTime 5 154.94 cm 33.3 kg/m2 53639.2 6 g 97.3 [degF] 99 % 99 % 75 /min 14 /min 124/66 mm[Hg] Katherine Emersonterry [place] - [facility] & [place] 5 12:15:10 Date Recorded Body height Body mass index (BMI) Body weight Body temperature Oxygen saturation Oxygen saturation in Arterial blood by Pulse oximetry Heart rate Respiratory rate Systolic And Diastolic Provider Name and Address Organization Details Last Updated DateTime 5 154.94 cm 34 kg/m2 84355.9 1 g 97.5 [degF] 98 % 98 % 69 /min 14 /min 124/78 mm[Hg] Katherine PIERRE [facility] & [place] 15:23:41 Social History Question Answer Notes LastModified by Organizat ion Details LastModified Time Tobacco Smoking Status Never Smoker Katherine Stewart null, [place] [facility] [place] 11/09/2023 08:21:46 Do You Have An Advance Directive? No Information n ot available 09/23/2022 Do You Wear A Helmet When Biking? Yes Information not available 11/09/2023 Are You Blind Or Do You Have Difficulty Seeing? Yes Information n ot available 11/25/2022 What Is Your Level Of Caffeine Consumption? Occasional Information not available 11/09/2023 In The 14 Days Before Symptom Onset, Have You Had Close Contact With A Laboratory-confirm ed COVID-19 While That Case Was Ill? No Information n ot available 11/09/2023 In The 14 Days Before Symptom Onset, Have You Had Close Contact With A Person Who Is Under Investigation For COVID-19 While That Person Was Ill? No Information not available 11/09/2023 Have You Been To An Area Known To Be High Risk For COVID-19? No Information not available 11/09/2023 Are You Deaf Or Do You Have Serious Difficulty Hearing? No Information not available 11/09/2023 What Type Of Diet Are You Following? REGULAR Information n ot available 11/09/2023 Have You Processed Blood Or Body Fluids From An Ebola Virus Disease Patient Without Appropriate PPE? No Information not available 11/09/2023 Do You Reside In Or Have You Traveled To An Area Where Ebola Virus Transmission Is Active? No Information not available 11/09/2023 Have There Been Any Changes To Your Family Or Social Situation? No Information no t available 11/09/2023 What Is The Fluoride Status Of Your Home? Unknown Information not available 11/09/2023 Are There Any Guns Present In Your Home? No Information not available 11/09/2023 Have You Recently Or Are You Planning To Travel To An Area With Zika Virus? No Information not available 11/09/2023 Do You Use Insect Repellent Routinely? Yes Information not available 11/09/2023 What Was The Date Of Your Most Recent Tobacco Screening? 11/06/2023 Information not available 11/09/2023 Do You Have Any Pets? Yes Information not available 11/09/2023 What Is Your Relationship Status? Information not available 11/09/2023 Do You Use Your Seat Belt Or Car Seat Routinely? Yes Information not available 11/09/2023 Are You Sexually Active? Yes Information not available 11/09/2023 Do You Have Smoke And Carbon Monoxide Detectors In Your Home? Yes Information not available 11/09/2023 Are You Passively Exposed To Smoke? No Information no t available 09/23/2022 How Much Tobacco Do You Smoke? No Information not available 11/25/2022 Do You Use Sunscreen Routinely? Yes Information not available 11/09/2023 Has Tobacco Cessation Counseling Been Provided? No Information not available 11/09/2023 Do You Have Difficulty Walking Or Climbing Stairs? No Information not available 11/09/2023 Are You Currently In School? No Information not available 11/09/2023 Sex: Female Functional Status Question Answer Note LastModified by Organizat ion Details LastModified Time Do you use any illicit or recreational drugs? No Information not available 09/23/2022 Do you or have you ever used any other forms of tobacco or nicotine? No Information not available 11/09/2023 What is your level of alcohol consumption? None Information not available 08/04/2022 Do you or have you ever used smokeless tobacco? Never used smokeless tobacco Information not available 09/23/2022 Do you have transportation difficulties? No Information not available 11/09/2023 Are you able to walk? YESWOREST Information not available 11/09/2023 Do you have difficulty doing errands alone? No Information not available 11/09/2023 Are you able to care for yourself? Yes Information n ot available 11/09/2023 Do you have difficulty dressing or bathing? No Information not available 11/09/2023 What is your exercise level? Occasional Information not available 11/25/2022 Mental Status Question Answer Note LastModified by Organizat ion Details LastModified Time Do you feel stressed (tense, restless, nervous, or anxious, or unable to sleep at night)? [id number] Information not available 11/25/2022 Do you have difficulty concentrating, remembering or making decisions? No Information no t available 11/09/2023 Family History Relationship Description Onset Age of this Age Resolved Age Notes LastModified by Organization Details LastModified Time Mother Hypertensive disorder pt. added direct ly (08/04) [email or web address] Not available 08/04/2022 08:27:24 Mother Hypercholest erolemia pt. added direct ly (08/04) [email or web address] Not available 08/04/2022 08:27:42 Mother Cerebrovascu lar accident pt. added direct ly (08/04) [email or web address] Not available 08/04/2022 08:28:03 Mother Headache pt. added direct ly (08/04) [email or web address] Not available 08/04/2022 08:29:09 Mother Intracranial aneurysm [email or web address] Not available 01/31 15:07:05 Sister Hypertensive disorder pt. added direct ly (08/04) [email or web address] Not available 08/04/2022 08:27:24 Sister Headache pt. added direct ly (08/04) [email or web address] Not available 08/04/2022 08:29:09 Sister Anxiety 2 Not availabl e 01/31/2025 15:07:05 Sister Arthritis 1 Not availa ble 01/31/2025 15:07:05 Son Hypertensive disorder pt. added direct ly (08/04) [email or web address] Not available 08/04/2022 08:27:24 Maternal Grandmother Hypertensive disorder pt. added direct ly (08/04) [email or web address] Not available 08/04/2022 08:27:24 Maternal Grandmother Hearing loss pt. added direct ly (08/04) [email or web address] Not available 08/04/2022 08:28:24 Maternal Aunt Hearing loss pt. added direct ly (08/04) [email or web address] Not available 08/04/2022 08:28:24 Father Malignant tumor of pharynx [email or web address] Not available 01/31 15:07:05 Medical History Condition Response Anxiety Disorder Y Diabetes Y Other Y Vision or Eye Problems Y Arthritis Y Ear or Hearing Problems Y Hyperlipidemia Y Back Problems Y GI Problems Y Osteoporosis/Osteopenia Y Reflux/GERD Y GERD/Reflux Y High Cholesterol Y Psychiatric/Mental Health Condition Y Headaches Y Hypertension Y Obstructive Sleep Apnea Y Gynecological History Statement/Question Response Abnormal Pap N Flow Moderate 11/19/2022 Date of LMP 10/19/1985 Duration of Flow (days) 5 Current Control Method None Age at Menarche 26 Date of Last Colonoscopy 10/19/2018 Most Recent Bone Density 10/19/2013 Sexually Active? Y Menses Monthly N Date of Last Pap Smear 10/19/2011 Obstetrics History GPAL:G 0 P 0 0 0 0 Past Encounters Encounter ID Performer Location Encounter Start Date Encounter Closed Date Diagnosis/Indication Diagnosis SNOMED-CT Code Diagnosis ICD10 Code Diagnosis Note [id number] John Moyer MD [facility] [address] [address] 08/04/2022 14:38:28 08/04/2022 16:46:14 Acute sinusitis 65743541 J01.90 [id number] Rosa M Argueta NP [address] [address] 2022 11:06:05 09/17/2022 14:48:13 Gastroesophageal reflux disease 949250401 K21.9 Controlled with esomeprazo le 40 mg daily and famotidine 40 mg HS. Will send refills today. Recommend continued reflux precaution s with avoidance of food triggers. Gastropare sis syndrome 265896577 K31.84 Controlled symptoms at this time. Recommend continued gastropare sis diet. Continue Zofran p.r.n.. Will send refills today. Previously experience d side effects with use of Reglan. Failed treatment with amitriptyl ine. Patient was previously evaluated by [facility] for alternativ e treatment options however lost to follow-up. Diarrhea 37441208 R19.7 remains well controlled with use of colestipol . Will send refills today. [id number] John Moyer MD [address] [address] 09/23/2022 08:24:29 09/23/2022 09:37:24 Allergic rhinitis 54653693 J30.9 stable Asthma 742296369 J45.90 9 stable Gastroesop hageal reflux disease 024914054 K21.9 stable Hyperlipidemia 15335724 E78.5 Hypertensive disorder 38 483577 I10 stable Tachycardia 3225976 R00. 0 stable Type 2 christen betes mellitus 12165292 E11.9 pt to take metformin 500mg daily [id number] John Moyer MD [address] [address] 11/10/2022 13:51:03 11/10/2022 14:44:53 Acute sinusitis 67952581 J01.90 Asthma 560036080 J45.90 9 stable [id number] John Moyer MD [address] [address] 11/25/2022 10:32:59 11/25/2022 13:40:46 Lumbago with sciatica 335585317 M54.41 [id number] John Moyer MD [address] [address] 12/24/2022 10:47:26 12/24/2022 12:09:46 Lumbago with sciatica 368810065 M54.41 NEGATIVE X-RAY, WILL ORDER MRI. Acute headache 999417970 R51.9 patient developed headache and visual changes along with nausea while in the clinic. She has been sent over to the emergency department . I have notified the emergency department of her symptoms she will be worked up. Low back pain 375613808 M54.50 [id number] MD michelle Valdez[address] [address] 01/07/2023 10:15:09 01/07/2023 11:00:21 Acute sinusitis 97168780 J01.90 [id number] John Moyer MD [facility] [address] [address] 01/15/2023 08:48:10 01/15/2023 09:26:37 Hyperlipidemia 64594345 E78.5 Obtain lab work today. labs drawn by tpardini LT AC Hypertensive disorder 38 663847 I10 stable Type 2 christen betes mellitus 92903021 E11.9 will obtain lab work today. Candidiasis of vagina 72 181712 B37.31 [id number] Rosa M Argueta NP [facility] [address] [facility] [place] [address] 03/11/2023 10:25:52 03/11/2023 12:27:02 Gastroesophageal reflux disease 681267280 K21.9 Controlled with esomeprazo le 40 mg and famotidine 40 mg HS. Will send refills today. Recommend continued reflux precaution s with avoidance of food triggers. Gastropare sis syndrome 600055936 K31.84 Only occasional symptoms at this time. Recommend continued gastropare sis diet. Continue Zofran p.r.n.. Will send refills today. Previously experience d side effects with use of Reglan. Failed treatment with amitriptyl ine. Patient was previously evaluated by [facility] for alternativ e treatment options however lost to follow-up. Diarrhea 55427968 R19.7 Controlled with use of Colestipol . Recommend continued use, will send refills today. Patient to hold Colestipol with episodes of constipati on. [id number] Kaitlin Carbajal APRN [facility] [address] [place] [address] 03/11/2023 12:04:57 03/11/2023 12:42:03 Acute maxillary sinusitis 38119930 J01.00 refused covid testeducat ed of the difference between allergic vs viral vs bacterial symptomsed ucated that symptoms may linger for a few days as treatment is starting earlygiven 250mg of rocephin in clinic todayincre ase water intakepati ent reports she is caring for grandjaime perez who is positive for covid; strongly encouraged that I do not recommend this as patient is already not feeling well and will increase her chances of catching covid. [id number] Rosa M Argueta NP [facility] [address] [place] [address] [place] [address] 05/07/2023 08:32:35 05/07/2023 10:10:41 Gastroesophageal reflux disease 346504443 K21.9 Controlled with esomeprazo le 40 mg and famotidine 40 mg HS. Recommend continued reflux precaution s with avoidance of food triggers. Gastropare sis syndrome 490053258 K31.84 Recommend strict gastropare sis diet given uncontroll ed symptoms at this time. Continue Zofran p.r.n.. Will send refills today. Previously experience d side effects with use of Reglan. Failed treatment with amitriptyl ine. Previously evaluated by [facility] for alternativ e treatment options however lost to follow-up. Diarrhea 35530852 R19.7 Continues Colestipol for treatment however does continue to experience episodes of constipati on with daily use. Nausea and vomiting 1692 1999 R11.2 2 week history daily episodes of nausea and vomiting. Known history of gastropare sis. She does have considerab le amount of stress and anxiety which she does believe could be contributi ng to some of her symptoms. History of cholecyste ctomy. Recommend EGD to further evaluate rule out gastritis, PUD, other.Pt is scheduled for EGD 05/13 @ 7:45 AM Esophageal dysphagia 408 54845 R13.19 Occasional episodes of dysphagia to solid foods. Recommend EGD to evaluate for esophagiti s, esophageal stricture, other. [id number] John Moyer MD [facility] [address] [place] [address] 06/02/2023 14:40:16 06/02/2023 15:17:47 Bilateral cramp of muscle of lower limbs 3561097063 0090486 R25.2 WILL CHECK PATIENT'S BLOOD WORK INCLUDING HER POTASSIUM. I THINK IT MIGHT NOT HURT TO START HER ON A SMALL DOSE OF REQUIP. I HAVE DISCUSSED WITH THE PATIENT THIS OPTION. WE HAVE AGREED TO TRY FOR 2 WEEKS. [id number] Rosa M Argueta NP [facility] [address] [place] [address] [place] [address] 06/10/2023 08:36:32 06/16/2023 11:36:51 Oropharyngeal dysphagia 59727791 R13.12 Occasional episodes oropharyng eal dysphagia, comes and goes. Recommend esophagram as well as modified barium swallow with speech therapy eval to further evaluate. EGD completed 05/13/2023 with Schatzki's ring dilated up to 20 mm using a dilating balloon. Gastroesop hageal reflux disease 498577752 K21.9 Controlled with esomeprazo le 40 mg and famotidine 40 mg HS. Recommend continued reflux precaution s with avoidance of food triggers. Gastropare sis syndrome 144888260 K31.84 Recommend strict gastropare sis diet given episodes of nausea. EGD 05/13/23 with negative pathology. Continue Zofran p.r.n. Previously experience d side effects with use of Reglan. Failed treatment with amitriptyl ine. Previously evaluated by [facility] for alternativ e treatment options however lost to follow-up. Diarrhea 95381372 R19.7 Continues Colestipol prn for treatment. History of Schatzkis ring 1560391864 0600758 Z87.19 S/p esophageal dilatation up to 20 mm using a dilating balloon on EGD 05/13/2023 . Symptoms of esophageal dysphagia have improved at this time. Recommend modified barium swallow as well as esophagram given complaints of oropharyng eal dysphagia. [id number] John Moyer MD [place] [address] [place] [address] 07/21/2023 08:17:47 07/21/2023 08:48:53 Pain in lower limb 74121710 M79.606 patient is complainin g of what appears to be cramping in her lower extremitie s at night. Will check lab work and take it from there. Gastroesop hageal reflux disease 831364539 K21.9 stable Hyperlipidemia 31978081 E78.5 Obtain lab work today. labs drawn by samuel CONTRERAS Hypertensive disorder 38 933919 I10 stable Type 2 christen betes mellitus 20228971 E11.9 will obtain lab work today. [id number] Salinas Riggins MD [facility] [address] [place] [address] 07/17/2023 10:45:09 07/17/2023 11:12:09 Contact dermatitis 80979093 L25.9 Uncertain etiology. We will proceed with treatment. Patient has appointmen t next week with primary care for recheck. See orders. [id number] Rosa M Argueta NP [facility] [address] [facility],Maura tegan Yañez [place] [address] 08/26/2023 08:53:21 08/26/2023 10:11:28 Gastroesophageal reflux disease 787582588 K21.9 Controlled with esomeprazo le 40 mg and famotidine 40 mg HS. Recommend continued reflux precaution s with avoidance of food triggers. Will send refills today. Reflux esophagiti s confirmed on pathology from 05/13/23. Gastropare sis syndrome 242069732 K31.84 Hx of gastropare sis with continued episodes of nausea. Recommend continued gastropare sis diet. Continue Zofran prn, will send refills today. EGD 05/13/23 with negative pathology. Previously experience d side effects with use of Reglan. Failed treatment with amitriptyl ine. Previously evaluated by [facility] for alternativ e treatment options however lost to follow-up. History of Schatzkis ring [id number] 4846640 Z87.19 S/p esophageal dilatation up to 20 mm using a dilating balloon on EGD 05/13/2023 . Normal MBS 06/16/23 [id number] John Moyer MD [facility] [address] [place] [address] 09/08/2023 09:48:12 09/08/2023 11:03:46 Anal fissure 73575970 K60.2 PATIENT IS CURRENTLY UNDERGOING CONSERVATI VE TREATMENT. SHE STATES THAT THE PAIN IS A 10/10 ON A PAIN SCALE. SHE FEELS THAT SHE MIGHT NOT BE ABLE TO DEAL WITH PAIN IT IS.A GASTROENTE ROLOGIST HAS STARTED HER ON LINZESS. Type 2 christen betes mellitus 12285503 E11.9 PATIENT NEEDS REFILL ON HER METFORMIN. SHE IS CONCERNED ABOUT IT CAUSING DIARRHEA. Hearing loss 67763716 H9 1.93 pt reports difficulty hearing - we will refer to audiology [id number] DO [facility] - [address] [place] [address], [address] [place] [address] 09/07/2023 09:19:31 09/07/2023 12:43:42 Anal fissure 94623902 K60.0 [id number] John Moyer MD [address] [place] [address] 09/21/2023 09:11:24 09/21/2023 09:39:10 Acute sinusitis 55170552 J01.90 will treat with antibiotic s and steroids Allergic rhinitis 353083 04 J30.9 patient reports that she has a history of allergic rhinitis. Will refer her to physician office secretary as per patient request. [id number] GAVI AKERS [facility] [address], [facility] [place] [address] 09/29/2023 09:21:03 09/29/2023 09:42:36 Sensorineural hearing loss 35111559 H90.3 [id number] VIPUL GASCA DO [facility] General Surgery - [address] [place] [address], [address] [address] 10/05/2023 08:44:19 10/05/2023 16:41:05 Hematochezia 282186616 K92.1 Anal fissure 11356472 K6 0.0 [id number] Jada Herzog MD [facility] [address], [place] [address] 10/21/2023 09:40:06 10/21/2023 10:16:17 Allergic rhinitis 18867503 J30.9 Will have patient RAST tested due to beta stephany. Will call once results are back. Sensorineu ral hearing loss of bilateral ears 517976728 H90.3 patient does have significan t sensorineu ral hearing loss and Dr. Paramjit Black will be looking into getting her hearing aids through her insurance. [id number] John Moyer MD [address] [place] [address] 11/09/2023 08:00:20 11/09/2023 08:29:04 Adult health examination 514679519 Z00.00 patient tells us she is up-to-date on her mammograph y as well as colon screening. Will order a DEXA scan today. Asthma 512123925 J45.90 9 stable Hyperlipidemia 72505772 E78.5 Obtain lab work today. labs drawn by samuel CONTRERAS Hypertensive disorder 38 675711 I10 stable Type 2 christen betes mellitus [id number] E11.9 PATIENT NEEDS REFILL ON HER METFORMIN. SHE IS CONCERNED ABOUT IT CAUSING DIARRHEA. Vitamin deficiency 24124 002 E56.9 Screening for osteoporosis [id number] Z13.820 WILL CHECK DEXA SCAN. Essential hypertension 21693119 I10 Vitamin D deficiency 347 15241 E55.9 [id number] Rosa M Argueta NP [facility] [address] [place] [address] [place] [address] 12/16/2023 11:31:20 12/16/2023 15:37:17 Gastroesophageal reflux disease 162715765 K21.9 Controlled with esomeprazo le 40 mg and famotidine 40 mg HS. Recommend continued reflux precaution s with avoidance of food triggers. Gastropare sis syndrome 640933019 K31.84 Hx of gastropare sis with recent increased episodes of nausea. Recommend continued gastropare sis diet. Continue Zofran prn, will send refills today. EGD 05/13/23 with negative pathology. Previously experience d side effects with use of Reglan. Failed treatment with amitriptyl ine. Previously evaluated by [facility] for alternativ e treatment options however lost to follow-up. Abdominal pain 33522830 R10.9 Increased episodes of nausea as well as abdominal pain over the past 3 weeks. Recommend x-ray abdomen KUB to further evaluate. Irritable bowel syndrome characterized by constipation 321831536 K58.1 Continues Linzess 145 mcg with recent uncontroll ed symptoms. Recommend continued use of Linzess as well as miralax daily at this time. [id number] John Moyer MD [facility] [address] [place] [address] 12/28/2023 12:11:32 12/28/2023 12:33:01 Reactive airway disease [id number] 06 J45.909 patient has been advised to continue to use her Ventolin. We have given her a sample pack of Trelegy. I will also order PFTs. Patient has been instructed to follow-up in 2 weeks. [id number] John Moyer MD [address] [place] [address] 01/11/2024 09:56:26 01/11/2024 10:42:22 Gastroesophageal reflux disease 269492000 K21.9 stable Obesity 190563077 E66.9 will start patient on Ozempic. We have had extensive discussion s regarding diet and lifestyle modificati ons. Patient has agreed to cut out her mountain dew. She will take her medication s as prescribed including her Lasix. She also agrees to exercise for 3 times a week. We have spent over 30 minutes on the above discussion . Chronic cough 49765503 R 05.3 I have given patient a sample pack of Breztri She was unable to tolerate Trelegy. Body fluid retention 434 44654 R60.9 will refill patient's furosemide . [id number] John Moyer MD [address] [place] [address] 01/18/2024 09:25:44 01/18/2024 09:54:25 Type 2 diabetes mellitus 75076304 E11.9 will start her on Ozempic Asthma 005397404 J45.90 9 Good response to breztri. will refill patient's prescripti on Pain of left calf 066965 9213 739658 M79.662 will refer patient for Doppler studies. [id number] John Moyer MD [address] [place] [address] 02/01/2024 11:01:08 02/01/2024 11:22:53 Restrictive lung disease 61703256 J98.4 Patient continues to cough. Pulmonary function tests reveal a restrictiv e pattern. Will obtain a CT scan, refer patient to pulmonolog y. I will give her a cough suppressan t for now. [id number] Bar Stone M.D [facility] - [address] [place] [address] [place] [address] 02/16/2024 14:58:12 02/16/2024 15:50:43 Allergic rhinitis 94012306 J30.9 Asthma 568338844 J45.90 9 Moderate p ersistent asthma 042470058 J45.40 [id number] [facility] [address] [place] [address] 02/17/2024 10:16:02 02/17/2024 11:30:36 Gastroparesis syndrome 880082503 K31.84 Hx of gastropare sis with worsening symptoms after starting Ozempic 1 month ago. She took her last dose over 1 week ago. Mild improvemen t of symptoms at this time. Recommend continued gastropare sis diet. Continue Zofran prn, will send refills today. EGD 05/13/23 with negative pathology. Previously experience d side effects with use of Reglan. Failed treatment with amitriptyl ine. Previously evaluated by [facility] for alternativ e treatment options however lost to follow-up. Will refer to RD for further meal planning given her continued symptoms. Gastroesop hageal reflux disease 019309078 K21.9 Controlled with esomeprazo le 40 mg and famotidine 40 mg HS. Recommend continued reflux precaution s with avoidance of food triggers. Irritable bowel syndrome characterized by constipation 588917760 K58.1 Continues Linzess 145 mcg and miralax with controlled symptoms at this time. [id number] Bar Stone M.D [facility] W - [address] [place] [address] [place] [address] 04/18/2024 13:06:10 04/18/2024 13:56:01 Moderate persistent asthma 110624370 J45.40 Sample Fasenra injection given today. Lot # [id number]. Exp Date 11/2025. Allergic rhinitis 593112 04 J30.9 Asthma 019593375 J45.90 9 [id number] [facility] [address] [place] [address] 05/18/2024 10:38:17 05/18/2024 12:14:39 Gastroparesis syndrome 198240907 K31.84 Currently doing well with only occasional symptoms. She is no longer taking Ozempic. She has met with RD with further dietary recommenda tions. Recommend continued gastropare sis diet. Continue Zofran prn, will send refills today. EGD 05/13/23 with negative pathology. Previously experience d side effects with use of Reglan. Failed treatment with amitriptyl ine. Previously evaluated by [facility] for alternativ e treatment options however lost to follow-up. Gastroesop hageal reflux disease 816198136 K21.9 Controlled with esomeprazo le 40 mg and famotidine 40 mg HS. Recommend continued reflux precaution s with avoidance of food triggers. Chronic id iopathic constipation 94819661 K59.04 Continues Linzess 145 mcg however experienci ng increased episodes of diarrhea with use. She does report passing small hard stool at times. I am concerned with constipati on overflow diarrhea. Patient would like to try lower dose of Linzess 72 mcg, will send Rx today. May consider Motegrity in the future based on symptoms. [id number] John Moyer MD [address] [place] [address] 05/31/2024 09:36:39 05/31/2024 10:03:14 Acute sinusitis 60971644 J01.90 will treat with antibiotic s and steroids Hyperlipidemia 33050161 E78.5 Essential hypertension 89004958 I10 [id number] Bar Stone M.D [facility] [address] [place] [address] 07/19/2024 13:08:50 07/19/2024 13:57:51 Moderate persistent asthma 187315843 J45.40 Allergic rhinitis 346362 04 J30.9 Asthma 409538365 J45.90 9 [id number] John Moyer MD [address] [place] [address] 09/12/2024 10:57:03 09/12/2024 11:40:43 Acute sinusitis 26389352 J01.90 will treat with antibiotic s and steroids [id number] John Moyer MD [address] [place] [address] 10/20/2024 12:21:46 10/20/2024 12:46:23 Low blood pressure 95951261 I95.9 I have told patient to hold her blood pressure lowering medication s for now. They include amlodipine , Lasix, propranolo l. Nausea and vomiting 1692 1999 R11.2 will refill patient's Zofran. Will also give her some Phenergan to use as needed. Cough 50998929 R05.9 [id number] John Moyer MD [facility] [address] [place] [address] 11/01/2024 11:32:34 11/01/2024 12:09:41 Type 2 diabetes mellitus 92659891 E11.9 continue with current treatment Gastroesop hageal reflux disease 894634512 K21.9 stable Hyperlipidemia 26864425 E78.5 stable History of pneumonia 161 859858 Z87.01 resolved [id number] Rosa M Argueta NP [facility] [address] [place] [address] 11/16/2024 09:44:40 11/16/2024 10:24:36 Gastroparesis syndrome 821967379 K31.84 Continues to follow a gastropare sis diet however experienci ng continued episodes of nausea. Will refill ondansetro n. Previously met with RD with further dietary recommenda tions. Recommend continued gastropare sis diet. EGD 05/13/23 with negative pathology. Previously experience d side effects with use of Reglan. Failed treatment with amitriptyl ine. Previously evaluated by [facility] for alternativ e treatment options however lost to follow-up. Gastroesop hageal reflux disease 341562811 K21.9 Controlled with esomeprazo le 40 mg and OTC Pepcid complete HS. Recommend continued reflux precaution s with avoidance of food triggers. Will send refills today. Chronic id iopathic constipation 72340691 K59.04 Currently controlled with use of Linzess 72 mcg and MiraLax daily. Recommend continued use as prescribed as well as increased water intake. May consider Motegrity in the future based on symptoms. [id number] Bar Stone M.D [facility] W - [address] [place] [address] [address] [place] [address] 11/03/2024 13:43:27 11/03/2024 14:21:45 Moderate persistent asthma 806695436 J45.40 Allergic rhinitis 857463 04 J30.9 Asthma 223802481 J45.90 9 [id number] John Moyer MD [place] [address] [place] [address] 12/01/2024 11:59:09 12/01/2024 12:32:05 Pain in face 65569033 R51.9 we have told patient to continue to monitor. Heating pad/ ice might help. If symptoms worsen she has been advised to return to clinic. [id number] John Moyer MD [address] [place] [address] 01/31/2025 15:05:39 01/31/2025 15:35:31 Type 2 diabetes mellitus 42368163 E11.9 Will recheck patient's lab work. Health Concerns Section Related Observation LastModified by Organization Detai ls LastModified Time None Recorded Concern Status LastModified by Organization Details LastModified Time None Recorded Advance Directives Directive N: Payers Insurance Date Sequence Insurance Name Policy Number Policy Carcamo Covered Member ID Carcamo Member ID Guarantor Name 10/20/2024 3 [place]MEDICARE REPLACEMENT HMO) Tasneem M Mariam [id number] Tasneem M Mariam 01/27/2025 1 [place] Tasneem M Mariam [id number] Tasneem M Mariam 10/20/2024 2 PASSP[employer] BY [employer] (MEDICAID REPLACEMENT - HMO) [id number] Tasneem M Mariam [id number] Tasneem M Mariam 12/01/2024 1 [place] Tasneem M Mariam [id number] Tasneem M Mariam 11/24/2024 1 [place] Tasneem M Mariam [id number] Tasneem M Mariam 03/30/2025 [place] [facility] Tasneem M [place] [id number] Tasneem M [place] 09/12/2024 4 [place] Tasneem M [place] [id number] Tasneem Dugate 11/24/2024 2 [facility] (MEDICARE SUPPLEMENT) Tasneem Dugate [id number] Tasneem Dugate 11/24/2024 1 [place] [id number] Tasneem Cohene Notes Date Note Type Note Provider Name and Address Organization Details Recorded Time 11/01/2024 text/html presents for fol low up - pt states that she feels much better with her new regimen John Moyer MD [address], [place], [address], [facility] & [place] 11/01/2024 12:41:17 11/03/2024 text/html Patient is a 64 year old female present today for a follow up visit. Patient stated sick in September 2024 requiring hospitalization at [facility]. Patients states heart rate is real high was given propanolol by her power generation engineer. Patient states using rescue inhaler monthly. Patient is using Symbicort 160 mcg. Bar Stone M.D [address] [place] [address] Drive, [address], [place], [address], [facility] & [place] 11/03/2024 16:09:43 11/16/2024 text/html Patient returns to clinic today for follow up. She had stopped taking Linzess and miralax due to recent illness however experienced recurrent constipation which she describes as severe. She restarted Linzess 72 mcg and Miralax daily 1 week ago with improved constipation at this time. She continues esomeprazole 40 mg daily and OTC Pepcid complete HS with controlled GERD symptoms. She continues to experience episodes of nausea due to hx of gastroparesis. EGD 05/13/23 with Schatzki's ring dilated up to 20 mm, small hiatal hernia. MBS 06/16/23 was normal. Rosa M Argueta NP [address], [address], [place], [address], [facility] & [place] 11/16/2024 13:09:17 12/01/2024 text/html patient presents today complaining of pain and tenderness to the superficial aspect of her right cheek. There is no evidence of a rash, swelling, mass, or skin color change. Patient denies having a fever. John Moyer MD [address] [place] [address], [phone], [facility] & [place] 12/01/2024 12:40:34 01/31/2025 text/html patient presents today for follow-up. At her last visit we stopped a lot of her medications. Patient reports that she feels markedly better. She denies any adverse effects at this time. John Moyer MD [address] [place] [address], [phone], [facility] & [place] 01/31/2025 15:40:11 OBGyn Episode No OBEpisode recorded.
--- OUTSIDE RECORDS SUMMARY | 2025-04-27 14:47 | XMS_ITS | Encounter Summary ---
Author Organization [employer] ([place], [place], [place], [place]) Address [address] [place] [address] Care Team Providers Care Helicopter Pilot Name Role Phone Unavailable Primary Care Provider Unavailabl e Encounter Details Date Type Department Care Team (Late st Contact Info) Description 12/17/2018 Transcribed Document [facility] [place] [place] [address] ProviderCathi MD [address] [place] [address] Social History Tobacco Use Types Packs/Day Years Used Date Smoking Tobacco: Never Assessed Comments Unknown Sex and Gender Information Value Date Recorded Sex Assigned at Not on file Legal Sex Female 4:43 PM CDT Gender Identity Not on file Sexual Orientation Not on file documented as of this encounter Miscellaneous Notes * Cerner Conversion Note - Cathi ProviderMD - 12/17/2018 2:17 PM 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 [address] [place] [address] Patient Copy Patient Information: Name: TASNEEM [facility]RA [facility] Current Date: 12/17/2018 14:17:53 : 1960 Patient Address: [address] [place], [place] [address] [address] Patient Attending Physician: YAO HOLCOMB MD-CAR Primary Care Provider: ORION NASCIMENTO PA-TAD Primary Care Provider Discharge Diagnosis: Weight on Admission: 173 lb, 0 oz Comment: Follow-up Instructions: With: Address: When: YAO HOLCOMB [address] [place] [address], [address] [place] [phone] Business (1) Discharge Instructions: Diet after Discharge: Resume usual [...] Day. bifidobacterium infantis (Align) Oral Every Day. dicyclomine (dicyclomine 20 mg oral tablet) Oral Two Times A Day. diphenhydrAMINE 50 Milligram(s) Oral One Time Order. esomeprazole (NexIUM 40 mg oral delayed release capsule) Oral Every Day. famotidine (Pepcid 40 mg oral tablet) Oral One Time Order. fluticasone (fluticasone propionate 55 mcg/inh inhalation powder) Inhalation every 12 hours as needed Congestion. montelukast (montelukast 5 mg oral tablet, chewable) [...] you are awake and alert. ??? Take wboq-zio-wpactuf and prescription medicines only as told by [...] 07/26/2014 Document Revised: 03/09/2017 Document Reviewed: 01/24/2017 [employer] Interactive Patient Education ? 2017 [employer] Radial Site Care Introduction Refer to [...] including vitamins, herbs, eye drops, creams, and wawe-fmv-jjlryyj medicines. ??? Any problems you or family [...] 06/29/2013 Document Revised: 06/07/2017 Document Reviewed: 09/08/2016 [employer] Interactive Patient Education ? 2017 [employer] CIGARETTE SMOKING: The facts are clear, cigarette smoking will shorten your life. Smoking can cause many illnesses along the way. As a healthcare provider, we recommend that you stop smoking. Assistance with quitting is available by contacting 9-685-UPSW-NOW. This is a free resource providing counseling, [...] Be sure to sign up for the [employer] patient portal, which gives you 11/05 access to your medical information ??? including these discharge instructions ??? using your computer, smartphone, or tablet. Just go to [employer] to get started. Questions? Call . [facility] would like to thank you for allowing us to assist you with your healthcare needs. ABDI Monet TERESA MIT, (or insurance account representative) have received the above patient education materials/instructions and have verbalized understanding: Patient Signature _ Date/Time Patient Wet Roaster Signature (if needed) Date/Time Clinician/Hospital Wet Roaster Signature (if needed) Date/Time Electronically signed by Mikaela [facility] Conversion Counter Clerk [employer] at 02/05/2023 4:37 PM CDT documented in this encounter Plan of Treatment Not on file documented as of this encounter Visit Diagnoses Not on filedocumented in this encounter
--- OUTSIDE RECORDS SUMMARY | 2025-04-27 14:47 | XMS_ITS | Encounter Summary ---
Author Organization [employer] ([place], [place], [place], [place]) Address [address] [place] [address] Care Team Providers Care Travel Journalist Name Role Phone Unavailable Primary Care Provider Unavailabl e Encounter Details Date Type Department Care Team (Late st Contact Info) Description 12/21/2018 Transcribed Document [facility] [place] [facility] [place] [address] ProviderCathi MD [address] [place] [address] Social History Tobacco Use Types Packs/Day Years Used Date Smoking Tobacco: Never Assessed Comments Unknown Sex and Gender Information Value Date Recorded Sex Assigned at Not on file Legal Sex Female 4:43 PM CDT Gender Identity Not on file Sexual Orientation Not on file documented as of this encounter Miscellaneous Notes * Cerner Conversion Note - Historical ProviderMD - 12/21/2018 3:03 PM 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 UPDATE: The History and Physical performed by on has been reviewed, patient was examined, and no change has occurred since the History and Physical was completed. OR UPDATE: The History and Physical performed by on has been reviewed and patient examined. The only significant change(s) in the patient's history or condition since the History and Physical was completed are indicated below: Significant Changes: documented in this encounter Plan of Treatment Not on file documented as of this encounter Visit Diagnoses Not on filedocumented in this encounter
[2025-04-27 15:26] VITALS: BP 113/66; PULSE 81; RESP 14; O2SAT 96; BMI 33.4
--- NOTE | 2025-04-27 16:10 | EXP.PAIN.SOA ---
[facility] Disclaimer: The information contained in this section may have been updated after the patient was seen, as this information can be updated by other users. Medical History (Updated 04/27/25 @ 16:16 by Carmen Sandra APRN) DDD (degenerative disc disease) Seasonal allergies HTN (hypertension) Diabetes GERD (gastroesophageal reflux disease) HLD (hyperlipidemia) Family History Other No significant family history Social History Smoking Status: Never smoker alcohol intake: never substance use type: denies use current occupational status: other Travel in the last 8 weeks?: None PM Subjective & Objective Subjective Subjective:: Patient is a pleasant 64-year-old female who presents today for follow-up of bilateral SI injections on 04/11/2025. Today she rates her pain a 7 out of 10. Patient states it is primarily her neck bothering her today however she does state that she did not really notice any improvement with the last SI injections. Patient states that she is still having the low back pain. Patient denies any radiating symptoms into her legs but does state that she does have issues with her feet. Patient is seeing orthopedics and did actually discuss with them regarding the neck pain. Patient states that she did not really have the worsening pain in her neck until she started doing more physical therapy and since then she is getting more knots in and around primarily the left side and it does radiate down into her left hand with numbness and tingling that pretty much affects most of all of her fingers however not as much of the thumb. Patient does also feel like she has had times in the morning where she feels like she has hair wrapped around her fingers and that sensation is there but there is nothing present. Patient does state that the neck pain and radicular symptoms are interfering with her ability perform activities of daily living such as cooking and cleaning and she would like to see about doing something for this pain. Patient has had imaging in the past that did show degenerative disc. Patient has continued conservative therapy with no additional improvement. Patient has seen neurosurgery and was not a surgical candidate however was recommended for injection therapy. Her Joaquim has been reviewed and is appropriate. Injection history; 04/11/2025 bilateral SI injections 03/07/2025 right bursa injection 12/13/2024 bilateral SI injections 11/08/2024 lumbar medial branch block 01/05/2024 bilateral lumbar medial branch blocks 10/30/2023 bilateral SI injections 06/23/2023 bilateral SI injections 06/02/2023 right SI injection 05/05/2023 LESI L4-L5 03/03/2023 LESI L4-L5 Review of Systems: General: No recent weight changes, no fever, no sleep disturbances Respiratory: No cough, no shortness of air, no recurring pulmonary infections Cardiovascular/peripheral vascular: No chest pain, no palpitations, no edema, no shortness of breath Gastrointestinal: No new onset incontinence, normal bowel movements reported Genitourinary: No new onset incontinence Musculoskeletal: Neck pain, left arm/hand numbness tingling Psychiatric: [Normal mood/affect] Neurological: [Denies weakness in extremities], [denies balance issues] Pain at rest (0-10 scale): 7 Objective Objective:: Physical Exam: General: Alert and oriented x3, no acute distress, pleasant and cooperative Lungs: Respirations even and unlabored, symmetrical chest expansion Eyes: PERRL Musculoskeletal: Flexion and extension of cervical [spine] somewhat guarded secondary to pain, [antalgic gait noted] positive Spurling's test Neurological: Speech clear, no gross sensory deficit Has patient had previous pain injection?: Yes Percent improvement in pain since last injection: Minimal Conservative treatment options previously tried: Home exercise plan Length of treatment: Longer than 12 weeks Meds Home Medications and Allergies Home Medications ?Medication ?Instructions ?Recorded ?Confirmed ?Type albuterol sulfate 90 mcg/actuation 2 puff inhalation BIDP PRN sob 02/20/23 04/27/25 History aerosol inhaler (Ventolin HFA) aspirin 81 mg tablet,delayed 81 mg PO DAILY heart health 02/20/23 04/27/25 History release atorvastatin 20 mg tablet 20 mg PO HS Cholesterol 02/20/23 04/27/25 History cholecalciferol (vitamin D3) 50 2,000 unit PO DAILY Supplement 02/20/23 04/27/25 History mcg (2,000 unit) tablet colestipol 1 gram tablet 1 g PO DAILY . 02/20/23 04/27/25 History esomeprazole magnesium 40 mg 40 mg PO DAILY GERD 02/20/23 04/27/25 History capsule,delayed release famotidine 40 mg tablet 40 mg PO DAILY GERD 02/20/23 04/27/25 History metformin 500 mg tablet 500 mg PO DAILY Diabetes 02/20/23 04/27/25 History montelukast 10 mg tablet 10 mg PO HS allergies 02/20/23 04/27/25 History omega-3 fatty acids-fish oil 300 1,000 cap PO DAILY Supplement 02/20/23 04/27/25 History mg-1,000 mg capsule propranolol 10 mg tablet 10 mg PO BID Heartburn 02/20/23 04/27/25 History tizanidine 4 mg tablet (Zanaflex) 4 mg PO HS . #30 tabs 03/23/23 04/27/25 Rx methocarbamol 750 mg tablet 750 mg PO BID . 05/05/23 04/27/25 History meloxicam 7.5 mg tablet 7.5 mg PO DAILY . #30 tabs 06/15/23 04/27/25 Rx baclofen 20 mg tablet 20 mg PO HS . #30 tabs 07/08/23 04/27/25 Rx celecoxib 100 mg capsule (Celebrex) 100 mg PO DAILY #14 caps 08/06/23 04/27/25 Rx baclofen 10 mg tablet 10 mg PO TID #42 tabs 10/26/24 04/27/25 Rx methocarbamol 500 mg tablet 500 mg PO BID #28 tabs 11/23/24 04/27/25 Rx New Prescriptions to Start Prescriptions: Allergies Allergy/AdvReac Type Severity Reaction Status Date / Time aspirin AdvReac Verified 10/30/23 11:56 denosumab AdvReac Verified 10/30/23 11:56 morphine AdvReac Verified 10/30/23 11:56 promethazine AdvReac Verified 10/30/23 11:56 Assessment and Plan *Assessment and plan (1) Neck pain: Status: Acute Category: Medical Code(s): M54.2 - Cervicalgia (2) Degenerative disc disease, cervical: Status: Acute Category: Medical Code(s): M50.30 - Other cervical disc degeneration, unspecified cervical region (3) Cervical radiculopathy: Status: Acute Category: Medical Code(s): M54.12 - Radiculopathy, cervical region Plan FINDINGS: CERVICAL SPINE Three views were obtained. There is no acute fracture. There is mild disc space narrowing at C5-6 and C6-7 with small posterior osteophytes. There is no malalignment. IMPRESSION: Degenerative changes as above. Reviewed, Interpreted and Dictated by John Strong MD Transcribed by Michelle Francisco Authenticated and ERN Patient is experiencing worsening pain in their neck with radiating tingling and burning sensations into her left upper extremity. Patient did have limited range of motion of her cervical spine with a positive Spurling's test. I did discuss with the patient that I do believe they would benefit from a cervical epidural steroid injection. Risk and benefits were discussed with patient and they would like to proceed forward with this plan of care. Patient has tried and failed conservative therapy including oral medications, heat and ice, topicals, at home stretching exercise for longer than 12 weeks that was physician guided. Patient has had chronic neck pain for longer than 6 months and has not ever had any cervical epidurals to compare to. Patient will be scheduled for a JOSE MARIA C6-C7 under fluoroscopy. Patient denies any blood thinners. Patient has been instructed to contact the clinic with any concerns before the next appointment. Dr. Killian has reviewed this note and agrees with this plan of care. This note was dictated using voice recognition software and make contain errors or omissions. All injections are used with Lidocaine, Bupivacaine and dexamethasone unless otherwise stated as a diagnostic in which it has no steroid. Occasionally urine drug screen is needed to verify patient's compliance with our office pain contract. This is ordered based off specific treatments related to chronic pain with the potential to abuse certain medications.
== END 2025-04-27 23:59 | disposition home or self-care (01) ==
LOC: SC.PAIN 14:45
PROVIDERS: PCP Emergency Medicine; Visit Provider Nurse Practitioner Family
DX: M50.10 Cervical disc disorder with radiculopathy, unspecified cervical region (principal)
CPT/HCPCS: 99212; G0463

== ENCOUNTER 2025-05-30 08:09 | Day surgery (SDC) | payer MEDICARE, OTHER, SELFPAY ==
[2025-05-30 08:27] VITALS: BP 149/82; PULSE 76; RESP 16; O2SAT 99; BMI 32.8
[2025-05-30] MEDS: DEXAMETHASONE 10MG/ML 1ML VIAL 10 MG (08:42)
[2025-05-30 08:43] VITALS: BP 149/82; PULSE 76; RESP 18; O2SAT 99
[2025-05-30] MEDS: IOPAMIDOL-200 (41%);10ML VIAL 2 ML IV (08:45)
[2025-05-30 08:46] VITALS: BP 149/82; PULSE 76; RESP 18; O2SAT 99
[2025-05-30 08:53] VITALS: BP 134/79; PULSE 63; RESP 18; O2SAT 98
--- NOTE | 2025-05-30 09:05 | P.PCN_ITS ---
Procedure Date: 05/30/25 Time: 08:30 Anesthesiologist:: Miguel Neal CRNA Complications:: None Pre-procedure Diagnosis:: Degenerative disc cervical spine multilevels. Cervical radiculopathy. Post-procedure Diagnosis:: Same. Indications for Procedure:: Patient is a very pleasant 64-year-old female who comes our clinic today for cervical epidural steroid injection. Patient describes posterior cervical neck pain as well as bilateral arm radicular symptoms. She rates her pain today 6/10 . Procedure Details:: Procedure:Cervical epidural steroid injection Informed consent was obtained and the risks and benefits of the procedure were explained to the patient. The patient was taken to the procedure room and noninvasive monitors placed, including noninvasive blood pressure cuff and pulse oximeter. The neck was prepped using Chloraprep as a cleansing solution. The C6- C7 interspace was viewed using fluroscopy. The skin and subcutaneous tissues were anesthetized using lidocaine 1.5% and a 25-gauge needle. After this an 18- gauge Touhy epidural needle was placed into the C6-C7 interspace under fluroscopy guidance and advanced using loss of resistance to air until the epidural space was encountered. After confirmation of needle placement in the epidural space using contrast dye, dexamethasone 10 mg ( 1 ML) was incrementally injected into the cervical epidural space.~ The patient tolerated the procedure well with no complications. The patient was observed in the Pain Clinic and then discharged home neurologically intact. Plan and Disposition:: Patient was discharged without incident.
== END 2025-05-30 08:53 | disposition home or self-care (01) ==
PROVIDERS: PCP Emergency Medicine; Visit Provider Nurse Anesthetist, Certified Registered
DX: M50.123 Cervical disc disorder at C6-C7 level with radiculopathy (principal); E11.9 Type 2 diabetes mellitus without complications; K21.9 Gastro-esophageal reflux disease without esophagitis; E78.5 Hyperlipidemia, unspecified; I10 Essential (primary) hypertension; Z88.6 Allergy status to analgesic agent; Z88.5 Allergy status to narcotic agent; Z88.8 Allergy status to other drugs, medicaments and biological substances; Z79.84 Long term (current) use of oral hypoglycemic drugs; Z79.82 Long term (current) use of aspirin; Z79.899 Other long term (current) drug therapy
CPT/HCPCS: 64479; J1100; Q9966

== ENCOUNTER 2025-06-13 14:00 | Outpatient (RCR) | payer MEDICARE, OTHER, SELFPAY | END 2025-06-13 23:59 | disposition home or self-care (01) | LOC: PT.CARL 14:00 | PROVIDERS: Visit Provider Orthopaedic Surgery Adult Reconstructive Orthopaedic Surgery | DX: M70.61 Trochanteric bursitis, right hip (principal) | CPT/HCPCS: 97032; 97035; 97110; 97161 ==

== ENCOUNTER 2025-06-28 11:00 | Outpatient (RCR) | payer MEDICARE, OTHER, SELFPAY | END 2025-06-28 23:59 | disposition home or self-care (01) | LOC: PT.CARL 11:00 | PROVIDERS: Visit Provider Orthopaedic Surgery Adult Reconstructive Orthopaedic Surgery | DX: M70.61 Trochanteric bursitis, right hip (principal) | CPT/HCPCS: 97035; 97110 ==

== ENCOUNTER 2025-08-29 08:20 | Day surgery (SDC) | payer MEDICARE, SELFPAY ==
[2025-08-29 08:24] VITALS: BP 134/83; PULSE 69; RESP 16; O2SAT 97; BMI 32.8
[2025-08-29 08:48] VITALS: BP 166/84; RESP 18; O2SAT 95
[2025-08-29] MEDS: DEXAMETHASONE 10MG/ML 1ML VIAL 10 MG (08:49)
[2025-08-29 08:53] VITALS: BP 166/84; PULSE 68; RESP 18; O2SAT 95
--- NOTE | 2025-08-29 08:58 | P.PCN_ITS ---
Procedure Date: 08/29/25 Time: 08:30 Anesthesiologist:: Mat Neal CRNA Complications:: None Pre-procedure Diagnosis:: Degenerative disc lumbar spine multilevels. Lumbar radiculopathy. Post-procedure Diagnosis:: Same. Indications for Procedure:: Patient is a very pleasant 64-year-old female who comes our clinic today for lumbar epidural steroid injection. Patient describes low lumbar back pain as constant, dull, aching. She also reports bilateral hip and leg radicular sympto ms. She rates her pain 7/10. Procedure Details:: Procedure: Lumbar epidural steroid injection under fluoroscopy Informed consent was obtained and the risks and benefits of the procedure were explained to the patient. The patient was taken to the procedure room and noninvasive monitors placed, including noninvasive blood pressure cuff and pulse oximeter. The back was viewed using C-arm Fluoroscopy and prepped using Chloraprep as a cleansing solution and the L4-L5 interspace was palpated. Skin and subcutaneous tissues were anesthetized using lidocaine 1.5% and a 25-gauge needle. After this, an 18-gauge Touhy epidural needle was placed into the L4-L5 interspace and advanced using fluoroscopic guidance and loss of resistance to air until the epidural space was encountered. After confirmation of needle placement in the epidural space, with dye, a solution containing normal saline, 3 mL and dexamethasone 10 mg were incrementally injected into the lumbar epidural space. The patient tolerated the procedure well with no complications. The patient was observed in the Pain Clinic and then discharged home neurologically intact. Plan and Disposition:: Patient was discharged without incident.
[2025-08-29 09:00] VITALS: BP 140/90; PULSE 71; RESP 16; O2SAT 99
== END 2025-08-29 09:00 | disposition home or self-care (01) ==
PROVIDERS: PCP Emergency Medicine; Visit Provider Nurse Anesthetist, Certified Registered
DX: M51.16 Intervertebral disc disorders with radiculopathy, lumbar region (principal); E11.9 Type 2 diabetes mellitus without complications; I10 Essential (primary) hypertension; E78.5 Hyperlipidemia, unspecified; K21.9 Gastro-esophageal reflux disease without esophagitis; Z79.84 Long term (current) use of oral hypoglycemic drugs; Z79.82 Long term (current) use of aspirin; Z79.899 Other long term (current) drug therapy; Z88.5 Allergy status to narcotic agent; Z88.6 Allergy status to analgesic agent
CPT/HCPCS: 62323; J1100

== ENCOUNTER 2025-09-29 11:14 | Day surgery (SDC) | payer MEDICARE, SELFPAY ==
[2025-09-29 11:41] VITALS: BP 124/77; PULSE 78; RESP 16; O2SAT 98; BMI 31.8
[2025-09-29] MEDS: LIDOCAINE 1% 5ML PF VIAL 5 ML (12:11)
[2025-09-29] MEDS: BUPIVACAINE 0.25% 10ML INJ 25 MG IJ (12:12)
[2025-09-29] MEDS: DEXAMETHASONE 10MG/ML 1ML VIAL 10 MG (12:13)
[2025-09-29 12:17] VITALS: BP 145/82; PULSE 77; RESP 18; O2SAT 98
[2025-09-29 12:19] VITALS: BP 145/82; PULSE 77; RESP 18; O2SAT 98
[2025-09-29 12:25] VITALS: BP 147/79; PULSE 77; RESP 16; O2SAT 97
--- NOTE | 2025-09-29 13:26 | EXP.HP ---
History of Present Illness *Admission Date: 09/29/25 *Reason for visit:: Bilateral SI joint injection *History of present illness: This patient presents for bilateral SI joint injections. [facility] Disclaimer: The information contained in this section may have been updated after the patient was seen, as this information can be updated by other users. Medical History DDD (degenerative disc disease) Seasonal allergies HTN (hypertension) Diabetes GERD (gastroesophageal reflux disease) HLD (hyperlipidemia) Family History Other No significant family history Social History Smoking Status: Never smoker alcohol intake: never substance use type: denies use current occupational status: other Travel in the last 8 weeks?: None Have you lived/traveled outside [place] in past 30 days?: No Contact w/someone who lives/traveled outside [place] past 30 days?: No Exposure to someone with infectious disease in past 14 days?: No Do you have a fever (greater than 100.4 F or 38 C)?: No Have you tested positive for COVID-19?: No Exposed to someone with COVID-19 in past 14 days?: No Do you have a sore throat?: No Do you have a cough?: No Do you have any weakness?: No Do you have any diarrhea?: No Are you experiencing any unusual bleeding?: No Do you have any muscle aches/pain?: No Do you have any abdominal pain?: No Are you experiencing loss of taste or smell?: No Other Medical History Have you received the Flu Vaccine for this season: No Have you received the Pneumonia Vaccine: No Review of Systems Review of Systems Review of systems:: pertinent systems reviewed and negative unless documented below Meds Home Medications and Allergies Home Medications ?Medication ?Instructions ?Recorded ?Confirmed ?Type albuterol sulfate 90 mcg/actuation 2 puff inhalation BIDP PRN sob 02/20/23 09/29/25 History aerosol inhaler (Ventolin HFA) aspirin 81 mg tablet,delayed 81 mg PO DAILY heart health 02/20/23 09/29/25 History release atorvastatin 20 mg tablet 20 mg PO HS Cholesterol 02/20/23 09/29/25 History cholecalciferol (vitamin D3) 50 2,000 unit PO DAILY Supplement 02/20/23 09/29/25 History mcg (2,000 unit) tablet colestipol 1 gram tablet 1 g PO DAILY . 02/20/23 09/29/25 History esomeprazole magnesium 40 mg 40 mg PO DAILY GERD 02/20/23 09/29/25 History capsule,delayed release famotidine 40 mg tablet 40 mg PO DAILY GERD 02/20/23 09/29/25 History metformin 500 mg tablet 500 mg PO DAILY Diabetes 02/20/23 09/29/25 History montelukast 10 mg tablet 10 mg PO HS allergies 02/20/23 09/29/25 History omega-3 fatty acids-fish oil 300 1,000 cap PO DAILY Supplement 02/20/23 09/29/25 History mg-1,000 mg capsule propranolol 10 mg tablet 10 mg PO BID Heartburn 02/20/23 09/29/25 History tizanidine 4 mg tablet (Zanaflex) 4 mg PO HS . #30 tabs 03/23/23 09/29/25 Rx methocarbamol 750 mg tablet 750 mg PO BID . 05/05/23 09/29/25 History meloxicam 7.5 mg tablet 7.5 mg PO DAILY . #30 tabs 06/15/23 09/29/25 Rx baclofen 20 mg tablet 20 mg PO HS . #30 tabs 07/08/23 09/29/25 Rx celecoxib 100 mg capsule (Celebrex) 100 mg PO DAILY #14 caps 08/06/23 09/29/25 Rx baclofen 10 mg tablet 10 mg PO TID #42 tabs 10/26/24 09/29/25 Rx methocarbamol 500 mg tablet 500 mg PO BID #28 tabs 11/23/24 09/29/25 Rx New Prescriptions to Start Prescriptions: Allergies Allergy/AdvReac Type Severity Reaction Status Date / Time aspirin AdvReac Unknown Verified 09/29/25 11:41 allergy reaction denosumab AdvReac Unknown Verified 09/29/25 11:41 allergy reaction morphine AdvReac Unknown Verified 09/29/25 11:41 allergy reaction promethazine AdvReac Unknown Verified 09/29/25 11:41 allergy reaction Exam Data for Last 24 hours Vital signs and Labs for Last 24 Hours: Pulse Resp BP Pulse Ox O2 Del Method 77 16 147/79 H 97 Room Air 09/29/25 12:25 09/29/25 12:25 09/29/25 12:25 09/29/25 12:25 09/29/25 12:25 I & O for Last 24 hours: Intake & Output 09/27/25 09/28/25 09/29/25 09/30/25 11:59 11:59 11:59 11:59 Weight 163 lb *Routine HEENT Exam Head: Present normocephalic Eye: Present EOMI ENT: Present mucous membranes moist *Routine Respiratory Exam Respiratory: Present CTA bilaterally *Routine Cardiovascular Exam Cardiovascular: Present RRR, Normal S1 and Normal S2 *Routine Abdominal Exam Abdominal: Present soft *Routine Rectal Exam Rectal:: deferred *Routine Genitalia Exam Genitalia:: deferred Assessment and Plan *Assessment and plan (1) Bilateral sacroiliitis: Status: Acute Category: Medical Code(s): M46.1 - Sacroiliitis, not elsewhere classified Plan Bilateral SI joint injection
--- NOTE | 2025-09-29 13:28 | P.PCN_ITS ---
<Statement entered by Jacoby Killian MD - 10/20/25 14:30> Please delete this note as it was done in error.
--- NOTE | 2025-09-29 13:28 | EXP.PAIN.PRO ---
Procedure Date: 09/29/25 Time: 13:28 Anesthesiologist:: Jacoby Killian MD Complications:: None Pre-procedure Diagnosis:: Sacroiliitis Post-procedure Diagnosis:: Same Indications for Procedure:: This patient presents for bilateral sacroiliitis. She has pain over both SI joints. She has a positive Clovis's test bilaterally. She has positive Maria Luisa test bilaterally. She has positive SI joint compression test bilaterally. She has positive distraction test bilaterally. Will plan on bilateral SI joint injections under fluoroscopy today. Procedure Details:: B/L SI joint injection under fluoroscopy Informed consent was obtained and the risks and benefits of the procedure was explained to the patient. The patient was taken to the procedure room and placed prone on the procedure table. The patient was prepped using ChloraPrep. The skin and subcutaneous tissues overlying the SI joints were anesthetized using lidocaine. I placed a 22-gauge needle first in the left SI joint and second in the right SI joint. Needle placement was confirmed with dye. After this we injected 5 mL bupivacaine 0.25% and Depo-Medrol 40 mg into each SI joint. Patient tolerated the procedure well with no complication. Plan and Disposition:: Will follow-up with this patient in 2 weeks. Will evaluate efficacy of this SI joint injection.
== END 2025-09-29 12:25 | disposition home or self-care (01) ==
LOC: SC.PAINP 11:15
PROVIDERS: PCP Emergency Medicine; Visit Provider Anesthesiology
DX: M46.1 Sacroiliitis, not elsewhere classified (principal); I10 Essential (primary) hypertension; E11.9 Type 2 diabetes mellitus without complications; J30.2 Other seasonal allergic rhinitis; K21.9 Gastro-esophageal reflux disease without esophagitis; E78.5 Hyperlipidemia, unspecified; Z79.1 Long term (current) use of non-steroidal anti-inflammatories (NSAID); Z79.82 Long term (current) use of aspirin; Z79.02 Long term (current) use of antithrombotics/antiplatelets; Z79.84 Long term (current) use of oral hypoglycemic drugs; Z79.899 Other long term (current) drug therapy; Z88.6 Allergy status to analgesic agent; Z88.5 Allergy status to narcotic agent; Z88.8 Allergy status to other drugs, medicaments and biological substances
CPT/HCPCS: G0260; J0665; J1100; J2003